=== PATIENT | male | born 1960 | race Caucasian/White ===

== ENCOUNTER 2016-09-06 17:41 | Emergency (ER) | payer OTHER ==
[~2016-09-06] VITALS: Ht 182.9 cm; Wt 127.0 kg
[2016-09-06] MEDS ORDERED: ENALAPRILAT INJ 2.5MG/2ML VIAL As Ordered ONE ×2 (18:49→20:22)
[2016-09-06 18:51] LABS: ANION GAP 9 MEQ/L (8-16); BLOOD UREA NITROGEN 15 MG/DL (7-18); CALCIUM LEVEL 9.7 MG/DL (8.5-10.1); CARBON DIOXIDE LEVEL 28 MEQ/L (21-32); CHLORIDE LEVEL 104 MEQ/L (98-107); CREATININE FOR GFR 1.09 MG/DL (0.70-1.30); GLOMERULAR FILTRATION RATE > 60.0 (>56); GLUCOSE, FASTING 110 MG/DL (70-105); INR 1.07; POTASSIUM SERUM 3.5 MEQ/L (3.5-5.1); SODIUM LEVEL 141 MEQ/L (136-145)
[2016-09-06 18:52] LABS: MEAN CORPUSCULAR HEMOGLOBIN 28.3 pg (27.0-33.0); MEAN CORPUSCULAR HGB CONC 34.2 g/dl (32.0-36.5); MEAN CORPUSCULAR VOLUME 82.8 fl (80.0-96.0); RED CELL DISTRIBUTION WIDTH 13.3 % (11.5-14.5); WHITE BLOOD COUNT 13.1 K/mm3 (4.0-10.0)
[2016-09-06] MEDS ORDERED: ISOVUE-370 76% 100ML VIAL (Q9967) As Ordered ONE (19:05)
--- NOTE | 2016-09-06 19:31 | REP ---
Clinical: Chest pain . Comparison: None . Findings: The mediastinum and cardiac silhouette are stable and within normal limits for portable technique. The lung andre are clear without acute consolidation, effusion, or pneumothorax. Skeletal structures are intact. Impression: Normal portable chest x-ray Signed by Raymond Slaughter MD 09/06/2016 07:23 P
--- NOTE | 2016-09-06 19:41 | REP ---
Clinical: Acute chest pain. Technique: Axial contrast enhanced images from the thoracic inlet to the upper abdomen using 100 ml Isovue 370 intravenous contrast material with coronal and sagittal re-formations. Findings: Satisfactory enhancement of the pulmonary vasculature is achieved and no filling defects are identified to suggest pulmonary embolus. Thoracic aorta is normal caliber without aneurysm or dissection. Heart and pericardium are normal. Bilateral lung andre are well aerated and clear without acute pulmonary parenchymal consolidation or atelectasis. No nodule or mass lesion. No pleural effusion/reaction. No pneumothorax. No adenopathy. Impression: No evidence for pulmonary embolus. No acute pleuroparenchymal or mediastinal process. Signed by Raymond Slaughter MD 09/06/2016 07:33 P
[2016-09-06] MEDS ORDERED: hydrALAZINE INJ 20 MG/ML VIAL As Ordered ONE ×3 (21:49→22:32)
[2016-09-06] MEDS ORDERED: ACETAMINOPHEN 325 MG TAB As Ordered ONE (22:32)
--- NOTE | 2016-09-07 02:24 | EDDOCDS ---
Nurse's Notes [facility] Name: Fercho Prakash Age: 55 yrs Sex: Male : 1960 Arrival Date: 09/06/2016 Time: 17:41 Bed OBSERVATION Private MD: NO PRIMARY PHYSICIAN, . 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 ead also reports onset of headache. states headache and chest pain is relieved when laying down. denies sob/dizziness. reports chest pain worse at 5/10, currently rates at 1/10. Adult Sepsis Screening: The patient does not have new or worsening altered mentation. Patient's respiratory rate is less than 22. Systolic blood pressure is greater than 100. Patient has a qSOFA score of 0- Negative Sepsis Screen. Suicide/Homicide risk assessment- the patient denies having any suicidal and/or homicidal ideations and does not present with any other emotional, behavioral or mental health complaints. 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 Transition of care: patient was not received from another setting of care. 17:47 Acuity: IRA Level 2 ead 17:47 Method Of Arrival: Walkin/Carried/Asstd ead 17:48 Aspirin was taken [employer]. 2 tabs of 325 mg at 1500. ead 17:57 Red Flag criteria, patient assessed and taken directly to a bed. rs3 Triage Assessment: 17:50 General: Appears in no apparent distress, comfortable, Behavior is appropriate for age, ead cooperative. Pain: Location: face and chest Pain currently is 1 out of 10 on a pain scale. At worst was 5 out of 10 on a pain scale. Pain began 4 hours ago. HIV screening NA for this visit Offered previously. Neurological: Level of Consciousness is awake, alert, obeys commands, Oriented to person, place, time, Reports headache. Cardiovascular: Chest pain is described as Pain is 1 out of 10 on a pain scale. radiates Does not radiate. episodes are intermittent began 4 hours prior to arrival. Cardiovascular: Reports "it felt like my heart was up in my throat.". Respiratory: Airway is patent Respiratory effort is even, unlabored, Denies shortness of breath. Derm: Skin is pink, warm & dry. Historical: - Allergies: no known allergies; - Home Meds: 1. none - PMHx: Hypertension; - PSHx: none; - Social history: Smoking status: Patient states was never smoker of tobacco. No barriers to communication noted, The patient speaks fluent Malaysian, Speaks appropriately for age. - Family history: No immediate family members are acutely ill. - : The pt / caregiver states he / she is not on anticoagulants. Home medication list is obtained from the patient. - Exposure Risk Screening:: None identified. Screenin:52 Screening information is obtained from the patient. Fall risk: No risks identified. ead Assistance ADL's: requires no assistance with activities of daily living. Abuse/DV Screen: The patient / caregiver reports he/she is: not in a situation that causes fear, pain or injury. Nutritional screening: No deficits noted. Advance Directives: Currently, there is no health care proxy. There is no active DNR order. There is no living will. There is no Power of Film Writer. home support is adequate. Assessment: 16:35 General: Appears in no apparent distress, Behavior is appropriate for age, cooperative, hs1 pleasant. Pain: Location: headache Pain currently is 2 out of 10 on a pain scale. Neurological: Level of Consciousness is awake, alert, obeys commands. Cardiovascular: Rhythm is sinus rhythm No ectopy. Respiratory: Airway is patent Respiratory effort is even, unlabored, Respiratory pattern is regular, symmetrical. GI: Abdomen is non- distended obese. Derm: Skin is pink, warm & dry. normal. 19:37 General: Appears in no apparent distress, Behavior is appropriate for age, cooperative, nn1 . General: First encounter with this patient. Report taken from Augustin Shaffer RN. Nurse reports having given Enalaprit prior to shift change. Patient taken to CT, no distress noted. Patient has no complaints at this time. . Pain: Denies pain. Neurological: Level of Consciousness is awake, alert. Respiratory: Airway is patent Respiratory effort is even, unlabored, Respiratory pattern is regular, symmetrical. Derm: Skin is pink, warm & dry. 19:54 General: Provider aware of continued elevated blood pressure, new orders given. sls1 22:12 General: Appears in no apparent distress. Pain: Denies pain. Neurological: Level of nn1 Consciousness is awake, alert. Cardiovascular: Rhythm is sinus tachycardia. Respiratory: Airway is patent Respiratory effort is even, unlabored, Respiratory pattern is regular, symmetrical. Derm: Skin is pink, warm & dry. 22:18 General: Patient reports he has a headache, provider notified. Awaiting orders. . nn1 22:36 General: Appears in no apparent distress. Pain: Location: chest and head Pain currently nn1 is 6 out of 10 on a pain scale. Quality of pain is described as tightness in chest. Cardiovascular: Rhythm is atrial fibrillation With PVC's. Respiratory: Airway is patent Respiratory effort is even, unlabored, Respiratory pattern is regular, symmetrical. Derm: Skin is pink, warm & dry. 09/07 00:10 General: Appears in no apparent distress. General: Reports improvement in headache and nn1 chest pressure at this time.. Cardiovascular: Rhythm is atrial fibrillation. Respiratory: Airway is patent Respiratory effort is even, unlabored, Respiratory pattern is regular, symmetrical. Derm: Skin is pink, warm & dry. 00:41 General: Patient reports discomfort in chest that radiates to shoulder blades. Pressure nn1 rated 2/10. reports headache 4/10.. Neurological: Level of Consciousness is awake, alert. Cardiovascular: Rhythm is atrial fibrillation. Cardiovascular: Chest pain is described as vague, quality is pressure, is located in substernal area radiates "between shoulder blades". Derm: Skin is pink, warm & dry. 01:54 Reassessment: Patient appears in no apparent distress at this time. nn1 02:22 General: Appears in no apparent distress, comfortable, Behavior is appropriate for age, nn1 cooperative. Pain: Location: headache Pain currently is 4 out of 10 on a pain scale. Neurological: No deficits noted. Respiratory: No deficits noted. Derm: Skin is pink, warm & dry. Vital Signs: 09/06 17:42 BP 247 / 136; Pulse 127; Resp 18 S; Temp 97.7(O); Pulse Ox 100% on R/A; Weight 127.01 dd6 kg (R); Height 6 ft. 0 in. (182.88 cm) (R); 17:42 Pulse 81 MON; Pulse Ox 100% ; hs1 17:48 BP 228 / 110 LA Supine (man/); ead 17:58 BP 220 / 121 (auto/); hs1 18:00 BP 224 / 113 (auto/); ead 18:02 Pulse 106 MON; Pulse Ox 95% ; ead 18:15 BP 208 / 103 (auto/); hs1 18:15 Pulse 98 MON; Pulse Ox 96% ; hs1 18:27 Pulse 97 MON; Pulse Ox 95% ; hs1 18:30 BP 184 / 96 (auto/); hs1 18:45 BP 247 / 119 (auto/); nn1 18:45 Pulse 114 MON; Pulse Ox 98% ; nn1 18:46 BP 208 / 100 (auto/); hs1 18:46 Pulse 113 MON; Pulse Ox 98% ; hs1 19:00 BP 201 / 84 (auto/); nn1 19:00 Pulse 104 MON; Pulse Ox 97% ; nn1 19:13 Pulse 108 MON; Pulse Ox 97% ; nn1 19:15 BP 215 / 108 (auto/); nn1 19:31 BP 217 / 106 (auto/); nn1 19:31 Pulse 112 MON; Pulse Ox 96% ; nn1 19:45 BP 222 / 88 (auto/); nn1 19:45 Pulse 108 MON; Pulse Ox 96% ; nn1 20:12 Pulse 110 MON; Pulse Ox 95% ; nn1 20:13 BP 196 / 105 (auto/); nn1 20:15 BP 197 / 103 (auto/); nn1 20:15 Pulse 111 MON; Pulse Ox 96% ; nn1 20:26 BP 178 / 103 (auto/); nn1 20:26 Pulse 108 MON; Pulse Ox 96% ; nn1 20:30 BP 196 / 110 (auto/); nn1 20:30 Pulse 108 MON; Pulse Ox 97% ; nn1 20:31 BP 200 / 109 (auto/); nn1 20:31 Pulse 110 MON; Pulse Ox 96% ; nn1 20:32 BP 177 / 99 (auto/); nn1 20:32 Pulse 113 MON; Pulse Ox 97% ; nn1 20:36 BP 158 / 94 (auto/); nn1 20:36 Pulse 114 MON; Pulse Ox 96% ; nn1 20:41 BP 174 / 102 (auto/); nn1 20:41 Pulse 110 MON; Pulse Ox 95% ; nn1 20:46 BP 179 / 103 (auto/); nn1 20:46 Pulse 109 MON; Pulse Ox 97% ; nn1 20:51 BP 155 / 101 (auto/); nn1 20:51 Pulse 107 MON; Pulse Ox 96% ; nn1 20:56 BP 171 / 101 (auto/); nn1 20:56 Pulse 108 MON; Pulse Ox 96% ; nn1 20:57 Resp 20; nn1 21:01 BP 167 / 104 (auto/); nn1 21:01 Pulse 108 MON; Pulse Ox 96% ; nn1 21:06 BP 167 / 108 (auto/); nn1 21:06 Pulse 109 MON; Pulse Ox 96% ; nn1 21:11 BP 198 / 111 (auto/); nn1 21:11 Pulse 110 MON; Pulse Ox 95% ; nn1 21:16 BP 188 / 107 (auto/); nn1 21:16 Pulse 108 MON; Pulse Ox 96% ; nn1 21:21 BP 224 / 159 (auto/); nn1 21:21 Pulse 109 MON; Pulse Ox 96% ; nn1 21:26 BP 159 / 113 (auto/); nn1 21:26 Pulse 113 MON; Pulse Ox 96% ; nn1 21:31 BP 161 / 102 (auto/); nn1 21:31 Pulse 107 MON; Pulse Ox 96% ; nn1 21:36 BP 177 / 97 (auto/); nn1 21:37 Pulse 105 MON; Pulse Ox 95% ; nn1 21:41 BP 192 / 113 (auto/); nn1 21:41 Pulse 103 MON; Pulse Ox 96% ; nn1 21:46 BP 195 / 108 (auto/); nn1 21:46 Pulse 101 MON; Pulse Ox 96% ; nn1 21:51 BP 192 / 105 (auto/); nn1 21:51 Pulse 102 MON; Pulse Ox 96% ; nn1 21:56 BP 191 / 103 (auto/); nn1 21:56 Pulse 106 MON; Pulse Ox 97% ; nn1 22:01 BP 180 / 85 (auto/); nn1 22:01 Pulse 108 MON; Pulse Ox 97% ; nn1 22:06 BP 177 / 88 (auto/); nn1 22:06 Pulse 117 MON; Pulse Ox 97% ; nn1 22:11 BP 173 / 94 (auto/); nn1 22:11 Pulse 121 MON; Pulse Ox 98% ; nn1 22:16 BP 188 / 100 (auto/); nn1 22:16 Pulse 124 MON; Pulse Ox 97% ; nn1 22:21 BP 178 / 99 (auto/); nn1 22:21 Pulse 124 MON; Pulse Ox 97% ; nn1 22:26 BP 184 / 97 (auto/); nn1 22:26 Pulse 121 MON; Pulse Ox 97% ; nn1 22:30 Resp 20; Temp 98.6(O); nn1 22:31 BP 190 / 95 (auto/); nn1 22:31 Pulse 122 MON; Pulse Ox 97% ; nn1 22:36 BP 168 / 84 (auto/); nn1 22:36 Pulse 120 MON; Pulse Ox 97% ; nn1 22:41 BP 162 / 87 (auto/); nn1 22:41 Pulse 121 MON; Pulse Ox 97% ; nn1 22:46 Pulse 123 MON; Pulse Ox 97% ; nn1 22:46 BP 181 / 99 (auto/); nn1 22:51 BP 180 / 82 (auto/); nn1 22:51 Pulse 119 MON; Pulse Ox 98% ; nn1 22:56 BP 144 / 84 (auto/); nn1 22:56 Pulse 120 MON; Pulse Ox 97% ; nn1 23:01 BP 159 / 78 (auto/); nn1 23:01 Pulse 118 MON; Pulse Ox 97% ; nn1 23:06 BP 156 / 83 (auto/); nn1 23:06 Pulse 119 MON; Pulse Ox 97% ; nn1 23:11 BP 169 / 79 (auto/); nn1 23:11 Pulse 121 MON; Pulse Ox 97% ; nn1 23:16 BP 157 / 87 (auto/); nn1 23:16 Pulse 108 MON; Pulse Ox 97% ; nn1 23:21 BP 165 / 77 (auto/); nn1 23:21 Pulse 122 MON; Pulse Ox 97% ; nn1 23:26 BP 149 / 72 (auto/); nn1 23:26 Pulse 122 MON; Pulse Ox 96% ; nn1 23:31 BP 150 / 75 (auto/); nn1 23:31 Pulse 123 MON; Pulse Ox 97% ; nn1 23:36 BP 131 / 77 (auto/); nn1 23:36 Pulse 120 MON; Pulse Ox 96% ; nn1 23:41 BP 144 / 94 (auto/); nn1 23:41 Pulse 119 MON; Pulse Ox 97% ; nn1 23:46 BP 155 / 95 (auto/); nn1 23:46 Pulse 116 MON; Pulse Ox 97% ; nn1 23:51 BP 156 / 88 (auto/); nn1 23:51 Pulse 121 MON; Pulse Ox 97% ; nn1 23:56 Pulse 122 MON; Pulse Ox 97% ; nn1 23:56 BP 157 / 82 (auto/); nn1 09/07 00:01 BP 152 / 80 (auto/); nn1 00:01 Pulse 120 MON; Pulse Ox 97% ; nn1 00:06 BP 153 / 70 (auto/); nn1 00:06 Pulse 120 MON; Pulse Ox 96% ; nn1 00:10 Pulse 101 MON; Pulse Ox 97% ; nn1 00:11 BP 156 / 77 (auto/); nn1 00:11 Pulse 141 MON; Pulse Ox 96% ; nn1 00:16 BP 140 / 74 (auto/); nn1 00:16 Pulse 120 MON; Pulse Ox 96% ; nn1 00:21 BP 152 / 77 (auto/); nn1 00:21 Pulse 118 MON; Pulse Ox 96% ; nn1 00:26 BP 146 / 74 (auto/); nn1 00:26 Pulse 116 MON; Pulse Ox 97% ; nn1 00:31 BP 139 / 76 (auto/); nn1 00:31 Pulse 116 MON; Pulse Ox 96% ; nn1 00:36 BP 152 / 86 (auto/); nn1 00:36 Pulse 114 MON; Pulse Ox 97% ; nn1 00:41 BP 161 / 82 (auto/); nn1 00:41 Pulse 116 MON; Pulse Ox 97% ; nn1 00:46 BP 151 / 89 (auto/); nn1 00:46 Pulse 115 MON; Pulse Ox 98% ; nn1 00:51 BP 147 / 84 (auto/); nn1 00:51 Pulse 113 MON; Pulse Ox 97% ; nn1 00:56 BP 143 / 76 (auto/); nn1 00:56 Pulse 114 MON; Pulse Ox 97% ; nn1 01:01 BP 160 / 73 (auto/); nn1 01:01 Pulse 114 MON; Pulse Ox 96% ; nn1 02:19 BP 119 / 180; Pulse 100; Resp 20; Temp 98.1(O); Pulse Ox 97% on R/A; Pain 12/06; jmv 09/06 17:42 Body Mass Index 37.97 (127.01 kg, 182.88 cm) dd6 Vitals: 09/06 17:42 Log In Time: September 06, 2016 at 17:40. RN notified that patient meets Red Flag dd6 criteria. ED Course: 17:42 Patient visited by Shmuel Jorgensen PCA. dd6 17:42 NO PRIMARY PHYSICIAN, . is Private Physician. dd6 17:42 Patient moved to Waiting dd6 17:46 Patient moved to PD ead 17:46 EKG done. (by ED staff). Reviewed by Paresh Stock MD. ar3 17:48 Triage Initiated ead 17:52 Patient visited by Jailene Herrera PCA. ar3 17:57 Patient moved to 2 ead 18:02 Ron Lockhart DO is Attending Physician. cs11 18:02 Patient visited by Ron Lockhart DO. cs11 18:06 Inserted saline lock: 18 gauge in left antecubital area and blood collected. The ead patient tolerated the procedure well. 18:07 The patient / caregiver is instructed regarding the plan of care and ED course. Cardiac ead monitor on. Pulse ox on. NIBP on. 18:48 Patient visited by Zari Shaffer RN. hs1 19:45 Patient visited by Rudolph Ramos RN. nn1 20:03 Chest, 1 View Returned. EDMS 20:03 CT Chest Angio R/O PE Returned. EDMS 20:41 Patient visited by Rudolph Ramos RN. nn1 21:23 Patient moved to OBSERVATION cs11 21:29 [facility] Payment Agreement was scanned into [employer] and attached to record. zo 22:12 Rudolph Ramos,RN is Primary Nurse. nn1 23:57 Attending Physician role handed off by Ron Lockhart DO mm11 23:57 Juancarlos Oliveros DO is Attending Physician. mm11 09/07 00:13 Patient visited by Monica Buckley. cmb 00:13 Assisted with urinal. cmb 00:41 CARDIAC MARKER PANEL Sent. nn1 00:46 Patient visited by Keshav Horne PCA. jmv 00:46 EKG done. (by ED staff). Reviewed by Juancarlos Oliveros DO. jmv 02:12 Fab Basilio MD is Referral Physician. mm11 02:12 [facility] is Referral Physician. mm11 02:20 Patient visited by Keshav Horne PCA. jmv 02:23 No procedures done that require assistance. nn1 Administered Medications: 09/06 20:32 Drug: Enalaprilat 1.25 mg [enalaprilat 1.25 mg/mL intravenous solution] Route: IV; kas2 Rate: bolus; Site: left antecubital; 20:56 Drug: NS 0.9% 500 ml [sodium chloride 0.9 % intravenous solution] Route: IV; Rate: nn1 bolus; Site: left antecubital; 21:48 Not Given (Other Intervention Used): Enalaprilat 2.5 mg IV at bolus once; Administer nn1 over 5 minutes 22:00 Drug: hydrALAZINE 15 mg [hydralazine 20 mg/mL injection solution] Route: IV; Rate: nn1 bolus; Site: left antecubital; 22:36 Drug: hydrALAZINE 10 mg [hydralazine 20 mg/mL injection solution] Route: IV; Rate: nn1 bolus; Site: left antecubital; 22:36 Drug: Acetaminophen 975 mg [acetaminophen 325 mg tablet (3 tabs)] Route: PO; nn1 Output: 09/07 00:13 Urine: 400.00ml (Voided); Total: 400.00ml. cmb Order Results: Lab Order: CBC; SPEC'M 09/06/16 18:06 Test: WHITE BLOOD COUNT; Value: 13.1; Range: 4.0-10.0; Abnormal: Above high normal; Units: K/mm3; Status: F Test: RED BLOOD COUNT; Value: 5.93; Range: 4.30-6.10; Units: M/mm3; Status: F Test: HEMOGLOBIN; Value: 16.8; Range: 14.0-18.0; Units: g/dl; Status: F Test: HEMATOCRIT; Value: 49.1; Range: 42.0-52.0; Units: %; Status: F Test: MEAN CORPUSCULAR VOLUME; Value: 82.8; Range: 80.0-96.0; Units: fl; Status: F Test: MEAN CORPUSCULAR HEMOGLOBIN; Value: 28.3; Range: 27.0-33.0; Units: pg; Status: F Test: MEAN CORPUSCULAR HGB CONC; Value: 34.2; Range: 32.0-36.5; Units: g/dl; Status: F Test: RED CELL DISTRIBUTION WIDTH; Value: 13.3; Range: 11.5-14.5; Units: %; Status: F Test: PLATELET COUNT, AUTOMATED; Value: 361; Range: 150-450; Units: k/mm3; Status: F Lab Order: MED Profile; SPEC'M 09/06/16 18:06 Test: GLUCOSE, FASTING; Value: 110; Range: 70-105; Abnormal: Above high normal; Units: MG/DL; Status: F Test: BLOOD UREA NITROGEN; Value: 15; Range: 7-18; Units: MG/DL; Status: F Test: CREATININE FOR GFR; Value: 1.09; Range: 0.70-1.30; Units: MG/DL; Status: F Test: GLOMERULAR FILTRATION RATE; Value: > 60.0; Range: >56; Status: F Test: SODIUM LEVEL; Value: 141; Range: 136-145; Units: MEQ/L; Status: F Test: POTASSIUM SERUM; Value: 3.5; Range: 3.5-5.1; Units: MEQ/L; Status: F Test: CHLORIDE LEVEL; Value: 104; Range: 98-107; Units: MEQ/L; Status: F Test: CARBON DIOXIDE LEVEL; Value: 28; Range: 21-32; Units: MEQ/L; Status: F Test: ANION GAP; Value: 9; Range: 8-16; Units: MEQ/L; Status: F Test: CALCIUM LEVEL; Value: 9.7; Range: 8.5-10.1; Units: MG/DL; Status: F Test Note: ; Units are mL/min/1.73 m2 Chronic Kidney Disease Staging per NKF: Stage I & II GFR >=60 Normal to Mildly Decreased Stage III GFR 30-59 Moderately Decreased Stage IV GFR 15-29 Severely Decreased Stage V GFR <15 Very Little GFR Left ESRD GFR <15 on CHILD ATTENDANT Lab Order: Pt & Aptt; SPEC'M 09/06/16 18:06 Test: PROTHROMBIN TIME; Value: 14.0; Range: 12.3-14.5; Units: SECONDS; Status: F Test: INR; Value: 1.07; Status: F Test: PARTIAL THROMBOPLASTIN TIME; Value: 33.7; Range: 26.6-37.1; Units: SECONDS; Status: F Test Note: ; THERAPUTIC HUMAN INR VALUES INDICATIONS NORMAL RANGES PROPHYLAXIS/TREATMENT OF: VENOUS THROMBOSIS 2.0-3.0 PULMONARY EMBOLISM 2.0-3.0 PREVENTION OF SYSTEMIC EMBOLISM FROM: TISSUE HEART VALVES 2.0-3.0 ACUTE MYOCARDIAL INFARCTION 2.0-3.0 VALVULAR HEART DISEASE 2.0-3.0 ATRIAL FIBRILLATION 2.0-3.0 MECHANICAL VALVES(HIGH RISK) 2.5-3.5 RECURRENT MYOCARDIAL INFARCTION 2.5-3.5 Lab Order: Cardiac Marker Panel; SPEC'M 09/06/16 18:06 Test: CPK CREATINE PHOSPHOKINASE; Value: 128; Range: 39-308; Units: U/L; Status: F Test: CK-MB VALUE MASS; Value: 1.7; Range: 0.0-3.6; Units: NG/ML; Status: F Test: MB/CK RELATIVE INDEX; Value: 1.32; Range: < OR =4; Status: F Test: TROPONIN I; Value: < 0.02; Range: < 0.10; Units: NG/ML; Status: F Test Note: ; DIAGNOSIS CRITERIA MMB ng/ml Relative Index (RI) NON-AMI < or = 5 N/A [place] > 5 < or = 4 AMI > 5 > 4 Lab Order: CARDIAC MARKER PANEL; SPEC'M 09/07/16 00:40 Test: CPK CREATINE PHOSPHOKINASE; Value: 96; Range: 39-308; Units: U/L; Status: F Test: CK-MB VALUE MASS; Value: 1.5; Range: 0.0-3.6; Units: NG/ML; Status: F Test: MB/CK RELATIVE INDEX; Value: 1.56; Range: < OR =4; Status: F Test: TROPONIN I; Value: < 0.02; Range: < 0.10; Units: NG/ML; Status: F Test Note: ; DIAGNOSIS CRITERIA MMB ng/ml Relative Index (RI) NON-AMI < or = 5 N/A [place] > 5 < or = 4 AMI > 5 > 4 Radiology Order: Chest, 1 View Test: Chest, 1 View REASON FOR EXAMINATION: Chest Pain; Clinical: Chest pain .; ; Comparison: None .; ; Findings:; The mediastinum and cardiac silhouette are stable and within normal limits for; portable technique. The lung andre are clear without acute consolidation,; effusion, or pneumothorax. Skeletal structures are intact.; ; Impression:; Normal portable chest x-ray; ; ; Signed by; Raymond Slaughter MD 09/06/2016 07:23 P; Radiology Order: CT Chest Angio R/O PE Test: CT Chest Angio R/O PE REASON FOR EXAMINATION: Chest Pain; Clinical: Acute chest pain.; ; Technique: Axial contrast enhanced images from the thoracic inlet to the upper; abdomen using 100 ml Isovue 370 intravenous contrast material with coronal and; sagittal re-formations.; ; Findings: Satisfactory enhancement of the pulmonary vasculature is achieved and; no filling defects are identified to suggest pulmonary embolus. Thoracic aorta; is normal caliber without aneurysm or dissection. Heart and pericardium are; normal. Bilateral lung andre are well aerated and clear without acute pulmonary; parenchymal consolidation or atelectasis. No nodule or mass lesion. No pleural; effusion/reaction. No pneumothorax. No adenopathy.; ; Impression:; No evidence for pulmonary embolus.; No acute pleuroparenchymal or mediastinal process.; ; ; Signed by; Raymond Slaughter MD 09/06/2016 07:33 P; Outcome: 02:13 Discharge ordered by Provider. mm11 02:22 Discharge Assessment: Patient awake, alert and oriented x 3. No cognitive and/or nn1 functional deficits noted. Patient verbalized understanding of disposition instructions. patient administered narcotics - no. The following High Risk Discharge criteria are identified: None. Discharged to home ambulatory. Condition: stable Condition: improved. Instructed on discharge instructions, follow up and referral plans. medication usage, Demonstrated understanding of Pt was receptive of discharge instructions/ teaching. Prescriptions given X 1. CT Study completed. Property :Personal belongings accompany Pt. 02:23 Patient left the ED. nn1 Signatures: Dispatcher [employer] EDMS Ting Grant Matthew, DO DO mm11 Shmuel Jorgensen, CASTING HOUSE WORKER CASTING HOUSE WORKER dd6 Kimi Grimm RN RN rs3 Jailene Herrera, CASTING HOUSE WORKER CASTING HOUSE WORKER ar3 Zari Shaffer RN RN hs1 Rosalee Monroy, RN RN sls1 Monica Buckley cmb Ron Lockhart, DO cs11 Li Ulloa,RN RN ead Rudolph Ramos,RN RN nn1 Regina Medina,RN RN kas2 Keshav Horne, CASTING HOUSE WORKER CASTING HOUSE WORKER jmv Corrections: (The following items were deleted from the chart) 09/06 17:52 17:47 Presenting complaint: Patient states: onset of chest pain after removing snow ead from car. reports onset of headache. states headache and chest pain is relieved when laying down. denies sob/dizziness. reports chest pain worse at 5/10, currently rates at 1/10. ead 20:42 19:37 General: Appears in no apparent distress, Behavior is appropriate for age, nn1 cooperative, nn1 20:42 19:37 General: Report taken from Augustin Shaffer RN. Nurse reports having given Enalaprit nn1 prior to shift change. Patient taken to CT, no distress noted. Patient has no complaints at this time. . nn1 MTDD
--- NOTE | 2016-09-07 02:24 | EDDOCDS ---
Physician Documentation [facility] Name: Fercho Prakash Age: 55 yrs Sex: Male : 1960 Arrival Date: 09/06/2016 Time: 17:41 Bed OBSERVATION Private MD: NO PRIMARY PHYSICIAN, . Disposition: 09/07/16 02:13 Discharged to Home/Self Care. Impression: Chest pain, unspecified, Essential (primary) hypertension. - Condition is Stable. - Discharge Instructions: Nonspecific Chest Pain, Hypertension, Hypertension, [id number]. - Prescriptions for Hydralazine 10 mg Oral Tablet - take 1 tablet by ORAL route 4 times per day with food; 30 tablet. - Medication Reconciliation, Local Pharmacy Hours form. - Follow up: Fab Basilio MD; When: 10 - 14 days; Reason: Continuance of care, To establish care. [facility]; When: Call to arrange an appointment; Reason: To establish care. - Problem is an acute exacerbation. - Symptoms have improved. Historical: - Allergies: no known allergies; - Home Meds: 1. none - PMHx: Hypertension; - PSHx: none; - Social history: Smoking status: Patient states was never smoker of tobacco. No barriers to communication noted, The patient speaks fluent Indonesian, Speaks appropriately for age. - Family history: No immediate family members are acutely ill. - : The pt / caregiver states he / she is not on anticoagulants. Home medication list is obtained from the patient. - Exposure Risk Screening:: None identified. Vital Signs: 09/06 17:42 BP 247 / 136; Pulse 127; Resp 18 S; Temp 97.7(O); Pulse Ox 100% on R/A; Weight 127.01 dd6 kg / 280.01 lbs (R); Height 6 ft. 0 in. (182.88 cm) (R); 17:42 Pulse 81 MON; Pulse Ox 100% ; hs1 17:48 BP 228 / 110 LA Supine (man/); ead 17:58 BP 220 / 121 (auto/); hs1 18:00 BP 224 / 113 (auto/); ead 18:02 Pulse 106 MON; Pulse Ox 95% ; ead 18:15 BP 208 / 103 (auto/); hs1 18:15 Pulse 98 MON; Pulse Ox 96% ; hs1 18:27 Pulse 97 MON; Pulse Ox 95% ; hs1 18:30 BP 184 / 96 (auto/); hs1 18:45 BP 247 / 119 (auto/); nn1 18:45 Pulse 114 MON; Pulse Ox 98% ; nn1 18:46 BP 208 / 100 (auto/); hs1 18:46 Pulse 113 MON; Pulse Ox 98% ; hs1 19:00 BP 201 / 84 (auto/); nn1 19:00 Pulse 104 MON; Pulse Ox 97% ; nn1 19:13 Pulse 108 MON; Pulse Ox 97% ; nn1 19:15 BP 215 / 108 (auto/); nn1 19:31 BP 217 / 106 (auto/); nn1 19:31 Pulse 112 MON; Pulse Ox 96% ; nn1 19:45 BP 222 / 88 (auto/); nn1 19:45 Pulse 108 MON; Pulse Ox 96% ; nn1 20:12 Pulse 110 MON; Pulse Ox 95% ; nn1 20:13 BP 196 / 105 (auto/); nn1 20:15 BP 197 / 103 (auto/); nn1 20:15 Pulse 111 MON; Pulse Ox 96% ; nn1 20:26 BP 178 / 103 (auto/); nn1 20:26 Pulse 108 MON; Pulse Ox 96% ; nn1 20:30 BP 196 / 110 (auto/); nn1 20:30 Pulse 108 MON; Pulse Ox 97% ; nn1 20:31 BP 200 / 109 (auto/); nn1 20:31 Pulse 110 MON; Pulse Ox 96% ; nn1 20:32 BP 177 / 99 (auto/); nn1 20:32 Pulse 113 MON; Pulse Ox 97% ; nn1 20:36 BP 158 / 94 (auto/); nn1 20:36 Pulse 114 MON; Pulse Ox 96% ; nn1 20:41 BP 174 / 102 (auto/); nn1 20:41 Pulse 110 MON; Pulse Ox 95% ; nn1 20:46 BP 179 / 103 (auto/); nn1 20:46 Pulse 109 MON; Pulse Ox 97% ; nn1 20:51 BP 155 / 101 (auto/); nn1 20:51 Pulse 107 MON; Pulse Ox 96% ; nn1 20:56 BP 171 / 101 (auto/); nn1 20:56 Pulse 108 MON; Pulse Ox 96% ; nn1 20:57 Resp 20; nn1 21:01 BP 167 / 104 (auto/); nn1 21:01 Pulse 108 MON; Pulse Ox 96% ; nn1 21:06 BP 167 / 108 (auto/); nn1 21:06 Pulse 109 MON; Pulse Ox 96% ; nn1 21:11 BP 198 / 111 (auto/); nn1 21:11 Pulse 110 MON; Pulse Ox 95% ; nn1 21:16 BP 188 / 107 (auto/); nn1 21:16 Pulse 108 MON; Pulse Ox 96% ; nn1 21:21 BP 224 / 159 (auto/); nn1 21:21 Pulse 109 MON; Pulse Ox 96% ; nn1 21:26 BP 159 / 113 (auto/); nn1 21:26 Pulse 113 MON; Pulse Ox 96% ; nn1 21:31 BP 161 / 102 (auto/); nn1 21:31 Pulse 107 MON; Pulse Ox 96% ; nn1 21:36 BP 177 / 97 (auto/); nn1 21:37 Pulse 105 MON; Pulse Ox 95% ; nn1 21:41 BP 192 / 113 (auto/); nn1 21:41 Pulse 103 MON; Pulse Ox 96% ; nn1 21:46 BP 195 / 108 (auto/); nn1 21:46 Pulse 101 MON; Pulse Ox 96% ; nn1 21:51 BP 192 / 105 (auto/); nn1 21:51 Pulse 102 MON; Pulse Ox 96% ; nn1 21:56 BP 191 / 103 (auto/); nn1 21:56 Pulse 106 MON; Pulse Ox 97% ; nn1 22:01 BP 180 / 85 (auto/); nn1 22:01 Pulse 108 MON; Pulse Ox 97% ; nn1 22:06 BP 177 / 88 (auto/); nn1 22:06 Pulse 117 MON; Pulse Ox 97% ; nn1 22:11 BP 173 / 94 (auto/); nn1 22:11 Pulse 121 MON; Pulse Ox 98% ; nn1 22:16 BP 188 / 100 (auto/); nn1 22:16 Pulse 124 MON; Pulse Ox 97% ; nn1 22:21 BP 178 / 99 (auto/); nn1 22:21 Pulse 124 MON; Pulse Ox 97% ; nn1 22:26 BP 184 / 97 (auto/); nn1 22:26 Pulse 121 MON; Pulse Ox 97% ; nn1 22:30 Resp 20; Temp 98.6(O); nn1 22:31 BP 190 / 95 (auto/); nn1 22:31 Pulse 122 MON; Pulse Ox 97% ; nn1 22:36 BP 168 / 84 (auto/); nn1 22:36 Pulse 120 MON; Pulse Ox 97% ; nn1 22:41 BP 162 / 87 (auto/); nn1 22:41 Pulse 121 MON; Pulse Ox 97% ; nn1 22:46 Pulse 123 MON; Pulse Ox 97% ; nn1 22:46 BP 181 / 99 (auto/); nn1 22:51 BP 180 / 82 (auto/); nn1 22:51 Pulse 119 MON; Pulse Ox 98% ; nn1 22:56 BP 144 / 84 (auto/); nn1 22:56 Pulse 120 MON; Pulse Ox 97% ; nn1 23:01 BP 159 / 78 (auto/); nn1 23:01 Pulse 118 MON; Pulse Ox 97% ; nn1 23:06 BP 156 / 83 (auto/); nn1 23:06 Pulse 119 MON; Pulse Ox 97% ; nn1 23:11 BP 169 / 79 (auto/); nn1 23:11 Pulse 121 MON; Pulse Ox 97% ; nn1 23:16 BP 157 / 87 (auto/); nn1 23:16 Pulse 108 MON; Pulse Ox 97% ; nn1 23:21 BP 165 / 77 (auto/); nn1 23:21 Pulse 122 MON; Pulse Ox 97% ; nn1 23:26 BP 149 / 72 (auto/); nn1 23:26 Pulse 122 MON; Pulse Ox 96% ; nn1 23:31 BP 150 / 75 (auto/); nn1 23:31 Pulse 123 MON; Pulse Ox 97% ; nn1 23:36 BP 131 / 77 (auto/); nn1 23:36 Pulse 120 MON; Pulse Ox 96% ; nn1 23:41 BP 144 / 94 (auto/); nn1 23:41 Pulse 119 MON; Pulse Ox 97% ; nn1 23:46 BP 155 / 95 (auto/); nn1 23:46 Pulse 116 MON; Pulse Ox 97% ; nn1 23:51 BP 156 / 88 (auto/); nn1 23:51 Pulse 121 MON; Pulse Ox 97% ; nn1 23:56 Pulse 122 MON; Pulse Ox 97% ; nn1 23:56 BP 157 / 82 (auto/); nn1 09/07 00:01 BP 152 / 80 (auto/); nn1 00:01 Pulse 120 MON; Pulse Ox 97% ; nn1 00:06 BP 153 / 70 (auto/); nn1 00:06 Pulse 120 MON; Pulse Ox 96% ; nn1 00:10 Pulse 101 MON; Pulse Ox 97% ; nn1 00:11 BP 156 / 77 (auto/); nn1 00:11 Pulse 141 MON; Pulse Ox 96% ; nn1 00:16 BP 140 / 74 (auto/); nn1 00:16 Pulse 120 MON; Pulse Ox 96% ; nn1 00:21 BP 152 / 77 (auto/); nn1 00:21 Pulse 118 MON; Pulse Ox 96% ; nn1 00:26 BP 146 / 74 (auto/); nn1 00:26 Pulse 116 MON; Pulse Ox 97% ; nn1 00:31 BP 139 / 76 (auto/); nn1 00:31 Pulse 116 MON; Pulse Ox 96% ; nn1 00:36 BP 152 / 86 (auto/); nn1 00:36 Pulse 114 MON; Pulse Ox 97% ; nn1 00:41 BP 161 / 82 (auto/); nn1 00:41 Pulse 116 MON; Pulse Ox 97% ; nn1 00:46 BP 151 / 89 (auto/); nn1 00:46 Pulse 115 MON; Pulse Ox 98% ; nn1 00:51 BP 147 / 84 (auto/); nn1 00:51 Pulse 113 MON; Pulse Ox 97% ; nn1 00:56 BP 143 / 76 (auto/); nn1 00:56 Pulse 114 MON; Pulse Ox 97% ; nn1 01:01 BP 160 / 73 (auto/); nn1 01:01 Pulse 114 MON; Pulse Ox 96% ; nn1 02:19 BP 119 / 180; Pulse 100; Resp 20; Temp 98.1(O); Pulse Ox 97% on R/A; Pain 4/10; jmv 09/06 17:42 Body Mass Index 37.97 (127.01 kg, 182.88 cm) dd6 MDM: 09/06 17:43 ECG WITH READING ER PHYS+CARDIAG ordered. EDMS 18:32 IV Saline Lock ordered. cs11 18:32 Enalaprilat 1.25 mg IV at calculated rate once; Administer over 5 minutes ordered. cs11 18:33 CBC Ordered. EDMS 18:33 MED Profile Ordered. EDMS 18:33 Pt & Aptt Ordered. EDMS 18:33 Cardiac Marker Panel Ordered. EDMS 18:34 Chest, 1 View Ordered. EDMS 19:00 CBC Reviewed. cs11 19:00 MED Profile Reviewed. cs11 19:00 Pt & Aptt Reviewed. cs11 19:00 Cardiac Marker Panel Reviewed. cs11 19:00 NS 0.9% 500 ml IV at bolus once ordered. cs11 19:01 CT Chest Angio R/O PE Ordered. EDMS 19:51 Enalaprilat 1.25 mg IV at bolus once; Administer over 5 minutes ordered. cs11 20:49 Financial registration complete. zo 21:24 Enalaprilat 2.5 mg IV at bolus once; Administer over 5 minutes ordered. cs11 21:29 [facility] Payment Agreement was scanned into [employer] and attached to record. zo 21:43 hydrALAZINE 15 mg IV at bolus once ordered. cs11 22:17 hydrALAZINE 10 mg IV at bolus once ordered. cs11 22:17 Acetaminophen Tablet 975 mg PO once ordered. cs11 22:34 [facility] [employer] Deputy Sheriff Order ordered. cs11 22:40 [facility] [employer] Deputy Sheriff Order complete. tmm1 22:41 ECG WITH READING ER PHYS ordered. EDMS 22:42 CARDIAC MARKER PANEL Ordered. EDMS 22:49 Chest, 1 View Reviewed. cs11 22:49 CT Chest Angio R/O PE Reviewed. cs11 09/07 02:04 CARDIAC MARKER PANEL Reviewed. mm11 Administered Medications: 09/06 20:32 Drug: Enalaprilat 1.25 mg [enalaprilat 1.25 mg/mL intravenous solution] Route: IV; kas2 Rate: bolus; Site: left antecubital; 20:56 Drug: NS 0.9% 500 ml [sodium chloride 0.9 % intravenous solution] Route: IV; Rate: nn1 bolus; Site: left antecubital; 21:48 Not Given (Other Intervention Used): Enalaprilat 2.5 mg IV at bolus once; Administer nn1 over 5 minutes 22:00 Drug: hydrALAZINE 15 mg [hydralazine 20 mg/mL injection solution] Route: IV; Rate: nn1 bolus; Site: left antecubital; 22:36 Drug: hydrALAZINE 10 mg [hydralazine 20 mg/mL injection solution] Route: IV; Rate: nn1 bolus; Site: left antecubital; 22:36 Drug: Acetaminophen 975 mg [acetaminophen 325 mg tablet (3 tabs)] Route: PO; nn1 Signatures: Dispatcher [employer] Ting Gupta Matthew, DO DO mm11 Ron Lockhart, DO cs11 McLear, Josefina, JANITORIAL CLEANER JANITORIAL CLEANER tmm1 Li Ulloa RN RN Rudolph Mejía RN RN nn1 Regina Medina RN kas2 The chart was reviewed and I authenticate all verbal orders and agree with the evaluation and treatment provided.Attachments: 21:29 [facility] Payment Agreement zo MTDD
--- NOTE | 2016-09-07 19:52 | ECGEPIP ---
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
--- NOTE | 2016-09-07 19:53 | ECGEPIP ---
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
--- NOTE | 2016-09-09 03:24 | EDDOCDS ---
Nurse's Notes [facility] Name: Fercho Matson Age: 55 yrs Sex: Male : 1960 Arrival Date: 09/06/2016 Time: 17:41 Bed OBSERVATION Private MD: NO PRIMARY PHYSICIAN, . Diagnosis: Chest pain, unspecified;Essential (primary) hypertension Presentation: 09/06 17:47 Presenting complaint: Patient states: onset of chest pain after running a carrier blower. ead also reports onset of headache. states headache and chest pain is relieved when laying down. denies sob/dizziness. reports chest pain worse at 5/10, currently rates at 1/10. Adult Sepsis Screening: The patient does not have new or worsening altered mentation. Patient's respiratory rate is less than 22. Systolic blood pressure is greater than 100. Patient has a qSOFA score of 0- Negative Sepsis Screen. Suicide/Homicide risk assessment- the patient denies having any suicidal and/or homicidal ideations and does not present with any other emotional, behavioral or mental health complaints. Status: Patient is not a installation service representative or dependent. Transition of care: patient was not received from another setting of care. 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 2 tabs of 325 mg at 1500. ead 17:57 Red Flag criteria, patient assessed and taken directly to a bed. rs3 Triage Assessment: 17:50 General: Appears in no apparent distress, comfortable, Behavior is appropriate for age, ead cooperative. Pain: Location: face and chest Pain currently is 1 out of 10 on a pain scale. At worst was 5 out of 10 on a pain scale. Pain began 4 hours ago. HIV screening NA for this visit Offered previously. Neurological: Level of Consciousness is awake, alert, obeys commands, Oriented to person, place, time, Reports headache. Cardiovascular: Chest pain is described as Pain is 1 out of 10 on a pain scale. radiates Does not radiate. episodes are intermittent began 4 hours prior to arrival. Cardiovascular: Reports "it felt like my heart was up in my throat.". Respiratory: Airway is patent Respiratory effort is even, unlabored, Denies shortness of breath. Derm: Skin is pink, warm & dry. Historical: - Allergies: no known allergies; - Home Meds: 1. none - PMHx: Hypertension; - PSHx: none; - Social history: Smoking status: Patient states was never smoker of tobacco. No barriers to communication noted, The patient speaks fluent Pakistani, Speaks appropriately for age. - Family history: No immediate family members are acutely ill. - : The pt / caregiver states he / she is not on anticoagulants. Home medication list is obtained from the patient. - Exposure Risk Screening:: None identified. Screenin:52 Screening information is obtained from the patient. Fall risk: No risks identified. ead Assistance ADL's: requires no assistance with activities of daily living. Abuse/DV Screen: The patient / caregiver reports he/she is: not in a situation that causes fear, pain or injury. Nutritional screening: No deficits noted. Advance Directives: Currently, there is no health care proxy. There is no active DNR order. There is no living will. There is no Power of Vacuum Metalizing Supervisor. home support is adequate. Assessment: 16:35 General: Appears in no apparent distress, Behavior is appropriate for age, cooperative, hs1 pleasant. Pain: Location: headache Pain currently is 2 out of 10 on a pain scale. Neurological: Level of Consciousness is awake, alert, obeys commands. Cardiovascular: Rhythm is sinus rhythm No ectopy. Respiratory: Airway is patent Respiratory effort is even, unlabored, Respiratory pattern is regular, symmetrical. GI: Abdomen is non- distended obese. Derm: Skin is pink, warm & dry. normal. 19:37 General: Appears in no apparent distress, Behavior is appropriate for age, cooperative, nn1 . General: First encounter with this patient. Report taken from Augustin Shaffer RN. Nurse reports having given Enalaprit prior to shift change. Patient taken to CT, no distress noted. Patient has no complaints at this time. . Pain: Denies pain. Neurological: Level of Consciousness is awake, alert. Respiratory: Airway is patent Respiratory effort is even, unlabored, Respiratory pattern is regular, symmetrical. Derm: Skin is pink, warm & dry. 19:54 General: Provider aware of continued elevated blood pressure, new orders given. sls1 22:12 General: Appears in no apparent distress. Pain: Denies pain. Neurological: Level of nn1 Consciousness is awake, alert. Cardiovascular: Rhythm is sinus tachycardia. Respiratory: Airway is patent Respiratory effort is even, unlabored, Respiratory pattern is regular, symmetrical. Derm: Skin is pink, warm & dry. 22:18 General: Patient reports he has a headache, provider notified. Awaiting orders. . nn1 22:36 General: Appears in no apparent distress. Pain: Location: chest and head Pain currently nn1 is 6 out of 10 on a pain scale. Quality of pain is described as tightness in chest. Cardiovascular: Rhythm is atrial fibrillation With PVC's. Respiratory: Airway is patent Respiratory effort is even, unlabored, Respiratory pattern is regular, symmetrical. Derm: Skin is pink, warm & dry. 09/07 00:10 General: Appears in no apparent distress. General: Reports improvement in headache and nn1 chest pressure at this time.. Cardiovascular: Rhythm is atrial fibrillation. Respiratory: Airway is patent Respiratory effort is even, unlabored, Respiratory pattern is regular, symmetrical. Derm: Skin is pink, warm & dry. 00:41 General: Patient reports discomfort in chest that radiates to shoulder blades. Pressure nn1 rated 2/10. reports headache 4/10.. Neurological: Level of Consciousness is awake, alert. Cardiovascular: Rhythm is atrial fibrillation. Cardiovascular: Chest pain is described as vague, quality is pressure, is located in substernal area radiates "between shoulder blades". Derm: Skin is pink, warm & dry. 01:54 Reassessment: Patient appears in no apparent distress at this time. nn1 02:22 General: Appears in no apparent distress, comfortable, Behavior is appropriate for age, nn1 cooperative. Pain: Location: headache Pain currently is 4 out of 10 on a pain scale. Neurological: No deficits noted. Respiratory: No deficits noted. Derm: Skin is pink, warm & dry. Vital Signs: 09/06 17:42 BP 247 / 136; Pulse 127; Resp 18 S; Temp 97.7(O); Pulse Ox 100% on R/A; Weight 127.01 dd6 kg (R); Height 6 ft. 0 in. (182.88 cm) (R); 17:42 Pulse 81 MON; Pulse Ox 100% ; hs1 17:48 BP 228 / 110 LA Supine (man/); ead 17:58 BP 220 / 121 (auto/); hs1 18:00 BP 224 / 113 (auto/); ead 18:02 Pulse 106 MON; Pulse Ox 95% ; ead 18:15 BP 208 / 103 (auto/); hs1 18:15 Pulse 98 MON; Pulse Ox 96% ; hs1 18:27 Pulse 97 MON; Pulse Ox 95% ; hs1 18:30 BP 184 / 96 (auto/); hs1 18:45 BP 247 / 119 (auto/); nn1 18:45 Pulse 114 MON; Pulse Ox 98% ; nn1 18:46 BP 208 / 100 (auto/); hs1 18:46 Pulse 113 MON; Pulse Ox 98% ; hs1 19:00 BP 201 / 84 (auto/); nn1 19:00 Pulse 104 MON; Pulse Ox 97% ; nn1 19:13 Pulse 108 MON; Pulse Ox 97% ; nn1 19:15 BP 215 / 108 (auto/); nn1 19:31 BP 217 / 106 (auto/); nn1 19:31 Pulse 112 MON; Pulse Ox 96% ; nn1 19:45 BP 222 / 88 (auto/); nn1 19:45 Pulse 108 MON; Pulse Ox 96% ; nn1 20:12 Pulse 110 MON; Pulse Ox 95% ; nn1 20:13 BP 196 / 105 (auto/); nn1 20:15 BP 197 / 103 (auto/); nn1 20:15 Pulse 111 MON; Pulse Ox 96% ; nn1 20:26 BP 178 / 103 (auto/); nn1 20:26 Pulse 108 MON; Pulse Ox 96% ; nn1 20:30 BP 196 / 110 (auto/); nn1 20:30 Pulse 108 MON; Pulse Ox 97% ; nn1 20:31 BP 200 / 109 (auto/); nn1 20:31 Pulse 110 MON; Pulse Ox 96% ; nn1 20:32 BP 177 / 99 (auto/); nn1 20:32 Pulse 113 MON; Pulse Ox 97% ; nn1 20:36 BP 158 / 94 (auto/); nn1 20:36 Pulse 114 MON; Pulse Ox 96% ; nn1 20:41 BP 174 / 102 (auto/); nn1 20:41 Pulse 110 MON; Pulse Ox 95% ; nn1 20:46 BP 179 / 103 (auto/); nn1 20:46 Pulse 109 MON; Pulse Ox 97% ; nn1 20:51 BP 155 / 101 (auto/); nn1 20:51 Pulse 107 MON; Pulse Ox 96% ; nn1 20:56 BP 171 / 101 (auto/); nn1 20:56 Pulse 108 MON; Pulse Ox 96% ; nn1 20:57 Resp 20; nn1 21:01 BP 167 / 104 (auto/); nn1 21:01 Pulse 108 MON; Pulse Ox 96% ; nn1 21:06 BP 167 / 108 (auto/); nn1 21:06 Pulse 109 MON; Pulse Ox 96% ; nn1 21:11 BP 198 / 111 (auto/); nn1 21:11 Pulse 110 MON; Pulse Ox 95% ; nn1 21:16 BP 188 / 107 (auto/); nn1 21:16 Pulse 108 MON; Pulse Ox 96% ; nn1 21:21 BP 224 / 159 (auto/); nn1 21:21 Pulse 109 MON; Pulse Ox 96% ; nn1 21:26 BP 159 / 113 (auto/); nn1 21:26 Pulse 113 MON; Pulse Ox 96% ; nn1 21:31 BP 161 / 102 (auto/); nn1 21:31 Pulse 107 MON; Pulse Ox 96% ; nn1 21:36 BP 177 / 97 (auto/); nn1 21:37 Pulse 105 MON; Pulse Ox 95% ; nn1 21:41 BP 192 / 113 (auto/); nn1 21:41 Pulse 103 MON; Pulse Ox 96% ; nn1 21:46 BP 195 / 108 (auto/); nn1 21:46 Pulse 101 MON; Pulse Ox 96% ; nn1 21:51 BP 192 / 105 (auto/); nn1 21:51 Pulse 102 MON; Pulse Ox 96% ; nn1 21:56 BP 191 / 103 (auto/); nn1 21:56 Pulse 106 MON; Pulse Ox 97% ; nn1 22:01 BP 180 / 85 (auto/); nn1 22:01 Pulse 108 MON; Pulse Ox 97% ; nn1 22:06 BP 177 / 88 (auto/); nn1 22:06 Pulse 117 MON; Pulse Ox 97% ; nn1 22:11 BP 173 / 94 (auto/); nn1 22:11 Pulse 121 MON; Pulse Ox 98% ; nn1 22:16 BP 188 / 100 (auto/); nn1 22:16 Pulse 124 MON; Pulse Ox 97% ; nn1 22:21 BP 178 / 99 (auto/); nn1 22:21 Pulse 124 MON; Pulse Ox 97% ; nn1 22:26 BP 184 / 97 (auto/); nn1 22:26 Pulse 121 MON; Pulse Ox 97% ; nn1 22:30 Resp 20; Temp 98.6(O); nn1 22:31 BP 190 / 95 (auto/); nn1 22:31 Pulse 122 MON; Pulse Ox 97% ; nn1 22:36 BP 168 / 84 (auto/); nn1 22:36 Pulse 120 MON; Pulse Ox 97% ; nn1 22:41 BP 162 / 87 (auto/); nn1 22:41 Pulse 121 MON; Pulse Ox 97% ; nn1 22:46 Pulse 123 MON; Pulse Ox 97% ; nn1 22:46 BP 181 / 99 (auto/); nn1 22:51 BP 180 / 82 (auto/); nn1 22:51 Pulse 119 MON; Pulse Ox 98% ; nn1 22:56 BP 144 / 84 (auto/); nn1 22:56 Pulse 120 MON; Pulse Ox 97% ; nn1 23:01 BP 159 / 78 (auto/); nn1 23:01 Pulse 118 MON; Pulse Ox 97% ; nn1 23:06 BP 156 / 83 (auto/); nn1 23:06 Pulse 119 MON; Pulse Ox 97% ; nn1 23:11 BP 169 / 79 (auto/); nn1 23:11 Pulse 121 MON; Pulse Ox 97% ; nn1 23:16 BP 157 / 87 (auto/); nn1 23:16 Pulse 108 MON; Pulse Ox 97% ; nn1 23:21 BP 165 / 77 (auto/); nn1 23:21 Pulse 122 MON; Pulse Ox 97% ; nn1 23:26 BP 149 / 72 (auto/); nn1 23:26 Pulse 122 MON; Pulse Ox 96% ; nn1 23:31 BP 150 / 75 (auto/); nn1 23:31 Pulse 123 MON; Pulse Ox 97% ; nn1 23:36 BP 131 / 77 (auto/); nn1 23:36 Pulse 120 MON; Pulse Ox 96% ; nn1 23:41 BP 144 / 94 (auto/); nn1 23:41 Pulse 119 MON; Pulse Ox 97% ; nn1 23:46 BP 155 / 95 (auto/); nn1 23:46 Pulse 116 MON; Pulse Ox 97% ; nn1 23:51 BP 156 / 88 (auto/); nn1 23:51 Pulse 121 MON; Pulse Ox 97% ; nn1 23:56 Pulse 122 MON; Pulse Ox 97% ; nn1 23:56 BP 157 / 82 (auto/); nn1 09/07 00:01 BP 152 / 80 (auto/); nn1 00:01 Pulse 120 MON; Pulse Ox 97% ; nn1 00:06 BP 153 / 70 (auto/); nn1 00:06 Pulse 120 MON; Pulse Ox 96% ; nn1 00:10 Pulse 101 MON; Pulse Ox 97% ; nn1 00:11 BP 156 / 77 (auto/); nn1 00:11 Pulse 141 MON; Pulse Ox 96% ; nn1 00:16 BP 140 / 74 (auto/); nn1 00:16 Pulse 120 MON; Pulse Ox 96% ; nn1 00:21 BP 152 / 77 (auto/); nn1 00:21 Pulse 118 MON; Pulse Ox 96% ; nn1 00:26 BP 146 / 74 (auto/); nn1 00:26 Pulse 116 MON; Pulse Ox 97% ; nn1 00:31 BP 139 / 76 (auto/); nn1 00:31 Pulse 116 MON; Pulse Ox 96% ; nn1 00:36 BP 152 / 86 (auto/); nn1 00:36 Pulse 114 MON; Pulse Ox 97% ; nn1 00:41 BP 161 / 82 (auto/); nn1 00:41 Pulse 116 MON; Pulse Ox 97% ; nn1 00:46 BP 151 / 89 (auto/); nn1 00:46 Pulse 115 MON; Pulse Ox 98% ; nn1 00:51 BP 147 / 84 (auto/); nn1 00:51 Pulse 113 MON; Pulse Ox 97% ; nn1 00:56 BP 143 / 76 (auto/); nn1 00:56 Pulse 114 MON; Pulse Ox 97% ; nn1 01:01 BP 160 / 73 (auto/); nn1 01:01 Pulse 114 MON; Pulse Ox 96% ; nn1 02:19 BP 119 / 180; Pulse 100; Resp 20; Temp 98.1(O); Pulse Ox 97% on R/A; Pain 12/06; jmv 09/06 17:42 Body Mass Index 37.97 (127.01 kg, 182.88 cm) dd6 Vitals: 09/06 17:42 Log In Time: September 06, 2016 at 17:40. RN notified that patient meets Red Flag dd6 criteria. ED Course: 17:42 Patient visited by Shmuel Jorgensen PCA. dd6 17:42 NO PRIMARY PHYSICIAN, . is Private Physician. dd6 17:42 Patient moved to Waiting dd6 17:46 Patient moved to PD ead 17:46 EKG done. (by ED staff). Reviewed by Hamida Stock MD. ar3 17:48 Triage Initiated ead 17:52 Patient visited by Jailene Herrera PCA. ar3 17:57 Patient moved to 2 ead 18:02 Selina Luna DO is Attending Physician. cs11 18:02 Patient visited by Selina Luna DO. cs11 18:06 Inserted saline lock: 18 gauge in left antecubital area and blood collected. The ead patient tolerated the procedure well. 18:07 The patient / caregiver is instructed regarding the plan of care and ED course. Cardiac ead monitor on. Pulse ox on. NIBP on. 18:48 Patient visited by Zari Shaffer RN. hs1 19:45 Patient visited by Rudolph Ramos RN. nn1 20:03 Chest, 1 View Returned. EDMS 20:03 CT Chest Angio R/O PE Returned. EDMS 20:41 Patient visited by Rudolph Ramos RN. nn1 21:23 Patient moved to OBSERVATION cs11 21:29 [facility] Payment Agreement was scanned into [employer] and attached to record. zo 22:12 Rudolph Ramos,RN is Primary Nurse. nn1 23:57 Attending Physician role handed off by Selina Luna DO mm11 23:57 Juancarlos Oliveros DO is Attending Physician. mm11 09/07 00:13 Patient visited by Monica Buckley. cmb 00:13 Assisted with urinal. cmb 00:41 CARDIAC MARKER PANEL Sent. nn1 00:46 Patient visited by Keshav Horne PCA. jmv 00:46 EKG done. (by ED staff). Reviewed by Juancarlos Oliveros DO. jmv 02:12 Fab Basilio MD is Referral Physician. mm11 02:12 [facility] is Referral Physician. mm11 02:20 Patient visited by Keshav Horne PCA. jmv 02:23 No procedures done that require assistance. nn1 03:07 T-Sheet-- Draft Copy was scanned into [employer] and attached to record. hs2 12:28 ECG/EKG was scanned into [employer] and attached to record. gb 20:25 EKG-ADULT Returned. EDMS 20:25 ECG WITH READING ER PHYS Returned. EDMS Administered Medications: 09/06 20:32 Drug: Enalaprilat 1.25 mg [enalaprilat 1.25 mg/mL intravenous solution] Route: IV; kas2 Rate: bolus; Site: left antecubital; 20:56 Drug: NS 0.9% 500 ml [sodium chloride 0.9 % intravenous solution] Route: IV; Rate: nn1 bolus; Site: left antecubital; 21:48 Not Given (Other Intervention Used): Enalaprilat 2.5 mg IV at bolus once; Administer nn1 over 5 minutes 22:00 Drug: hydrALAZINE 15 mg [hydralazine 20 mg/mL injection solution] Route: IV; Rate: nn1 bolus; Site: left antecubital; 22:36 Drug: hydrALAZINE 10 mg [hydralazine 20 mg/mL injection solution] Route: IV; Rate: nn1 bolus; Site: left antecubital; 22:36 Drug: Acetaminophen 975 mg [acetaminophen 325 mg tablet (3 tabs)] Route: PO; nn1 Output: 09/07 00:13 Urine: 400.00ml (Voided); Total: 400.00ml. cmb Order Results: Lab Order: CBC; SPEC'M 09/06/16 18:06 Test: WHITE BLOOD COUNT; Value: 13.1; Range: 4.0-10.0; Abnormal: Above high normal; Units: K/mm3; Status: F Test: RED BLOOD COUNT; Value: 5.93; Range: 4.30-6.10; Units: M/mm3; Status: F Test: HEMOGLOBIN; Value: 16.8; Range: 14.0-18.0; Units: g/dl; Status: F Test: HEMATOCRIT; Value: 49.1; Range: 42.0-52.0; Units: %; Status: F Test: MEAN CORPUSCULAR VOLUME; Value: 82.8; Range: 80.0-96.0; Units: fl; Status: F Test: MEAN CORPUSCULAR HEMOGLOBIN; Value: 28.3; Range: 27.0-33.0; Units: pg; Status: F Test: MEAN CORPUSCULAR HGB CONC; Value: 34.2; Range: 32.0-36.5; Units: g/dl; Status: F Test: RED CELL DISTRIBUTION WIDTH; Value: 13.3; Range: 11.5-14.5; Units: %; Status: F Test: PLATELET COUNT, AUTOMATED; Value: 361; Range: 150-450; Units: k/mm3; Status: F Lab Order: MED Profile; [facility] 09/06/16 18:06 Test: GLUCOSE, FASTING; Value: 110; Range: 70-105; Abnormal: Above high normal; Units: MG/DL; Status: F Test: BLOOD UREA NITROGEN; Value: 15; Range: 7-18; Units: MG/DL; Status: F Test: CREATININE FOR GFR; Value: 1.09; Range: 0.70-1.30; Units: MG/DL; Status: F Test: GLOMERULAR FILTRATION RATE; Value: > 60.0; Range: >56; Status: F Test: SODIUM LEVEL; Value: 141; Range: 136-145; Units: MEQ/L; Status: F Test: POTASSIUM SERUM; Value: 3.5; Range: 3.5-5.1; Units: MEQ/L; Status: F Test: CHLORIDE LEVEL; Value: 104; Range: 98-107; Units: MEQ/L; Status: F Test: CARBON DIOXIDE LEVEL; Value: 28; Range: 21-32; Units: MEQ/L; Status: F Test: ANION GAP; Value: 9; Range: 8-16; Units: MEQ/L; Status: F Test: CALCIUM LEVEL; Value: 9.7; Range: 8.5-10.1; Units: MG/DL; Status: F Test Note: ; Units are mL/min/1.73 m2 Chronic Kidney Disease Staging per NKF: Stage I & II GFR >=60 Normal to Mildly Decreased Stage III GFR 30-59 Moderately Decreased Stage IV GFR 15-29 Severely Decreased Stage V GFR <15 Very Little GFR Left ESRD GFR <15 on [employer] Lab Order: Pt & Aptt; [facility] 09/06/16 18:06 Test: PROTHROMBIN TIME; Value: 14.0; Range: 12.3-14.5; Units: SECONDS; Status: F Test: INR; Value: 1.07; Status: F Test: PARTIAL THROMBOPLASTIN TIME; Value: 33.7; Range: 26.6-37.1; Units: SECONDS; Status: F Test Note: ; THERAPUTIC HUMAN INR VALUES INDICATIONS NORMAL RANGES PROPHYLAXIS/TREATMENT OF: VENOUS THROMBOSIS 2.0-3.0 PULMONARY EMBOLISM 2.0-3.0 PREVENTION OF SYSTEMIC EMBOLISM FROM: TISSUE HEART VALVES 2.0-3.0 ACUTE MYOCARDIAL INFARCTION 2.0-3.0 VALVULAR HEART DISEASE 2.0-3.0 ATRIAL FIBRILLATION 2.0-3.0 MECHANICAL VALVES(HIGH RISK) 2.5-3.5 RECURRENT MYOCARDIAL INFARCTION 2.5-3.5 Lab Order: Cardiac Marker Panel; [facility] 09/06/16 18:06 Test: CPK CREATINE PHOSPHOKINASE; Value: 128; Range: 39-308; Units: U/L; Status: F Test: CK-MB VALUE MASS; Value: 1.7; Range: 0.0-3.6; Units: NG/ML; Status: F Test: MB/CK RELATIVE INDEX; Value: 1.32; Range: < OR =4; Status: F Test: TROPONIN I; Value: < 0.02; Range: < 0.10; Units: NG/ML; Status: F Test Note: ; DIAGNOSIS CRITERIA MMB ng/ml Relative Index (RI) NON-AMI < or = 5 N/A [place]ONE > 5 < or = 4 AMI > 5 > 4 Lab Order: CARDIAC MARKER PANEL; [facility] 09/07/16 00:40 Test: CPK CREATINE PHOSPHOKINASE; Value: 96; Range: 39-308; Units: U/L; Status: F Test: CK-MB VALUE MASS; Value: 1.5; Range: 0.0-3.6; Units: NG/ML; Status: F Test: MB/CK RELATIVE INDEX; Value: 1.56; Range: < OR =4; Status: F Test: TROPONIN I; Value: < 0.02; Range: < 0.10; Units: NG/ML; Status: F Test Note: ; DIAGNOSIS CRITERIA MMB ng/ml Relative Index (RI) NON-AMI < or = 5 N/A KWOK ZONE > 5 < or = 4 AMI > 5 > 4 Radiology Order: EKG-ADULT Test: EKG-ADULT REASON FOR EXAMINATION: Chest Pain; Stationary ECG Study; [facility] - ED; ; Test Date: 2016-09-06; Pat Name: FERCHO MATSON Department:; Room: -; Gender: M 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; : 1960 Requested By: HAMIDA Botello; Order Number: [id number] Reading MD: Gina Riddle; Measurements; Intervals [place]; Rate: 107 P: 69; OR: 185 QRS: -21; QRSD: 102 T: 24; QT: 323; QTc: 432; Interpretive Statements; SINUS TACHYCARDIA WITH FREQUENT VENTRICULAR PREMATURE COMPLEXES WITH; OCCASIONAL; SUPRAVENTRICULAR PREMATURE COMPLEXES; BORDERLINE LEFT AXIS DEVIATION; ABNORMAL RHYTHM ECG; ENZO; ?PRIOR INFERIOR IA; NO PRIOR FOR COMPARISON; Electronically Signed On 09-07-2016 19:51:53 EST by Gina Riddle; Radiology Order: Chest, 1 View Test: Chest, 1 View REASON FOR EXAMINATION: Chest Pain; Clinical: Chest pain .; ; Comparison: None .; ; Findings:; The mediastinum and cardiac silhouette are stable and within normal limits for; portable technique. The lung andre are clear without acute consolidation,; effusion, or pneumothorax. Skeletal structures are intact.; ; Impression:; Normal portable chest x-ray; ; ; Signed by; Raymond Slaughter MD 09/06/2016 07:23 P; Radiology Order: CT Chest Angio R/O PE Test: CT Chest Angio R/O PE REASON FOR EXAMINATION: Chest Pain; Clinical: Acute chest pain.; ; Technique: Axial contrast enhanced images from the thoracic inlet to the upper; abdomen using 100 ml Isovue 370 intravenous contrast material with coronal and; sagittal re-formations.; ; Findings: Satisfactory enhancement of the pulmonary vasculature is achieved and; no filling defects are identified to suggest pulmonary embolus. Thoracic aorta; is normal caliber without aneurysm or dissection. Heart and pericardium are; normal. Bilateral lung andre are well aerated and clear without acute pulmonary; parenchymal consolidation or atelectasis. No nodule or mass lesion. No pleural; effusion/reaction. No pneumothorax. 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 mm11 02:22 Discharge Assessment: Patient awake, alert and oriented x 3. No cognitive and/or nn1 functional deficits noted. Patient verbalized understanding of disposition instructions. patient administered narcotics - no. The following High Risk Discharge criteria are identified: None. Discharged to home ambulatory. Condition: stable Condition: improved. Instructed on discharge instructions, follow up and referral plans. medication usage, Demonstrated understanding of Pt was receptive of discharge instructions/ teaching. Prescriptions given X 1. CT Study completed. Property :Personal belongings accompany Pt. 02:23 Patient left the ED. nn1 Signatures: Dispatcher [employer] EDMS Ivy Arrington, Sai Reg Ting Hester Matthew, DO DO mm11 Shmuel Jorgensen, FIELD KILN BURNER FIELD KILN BURNER dd6 Kimi Grimm RN RN rs3 Jailene Herrera, FIELD KILN BURNER FIELD KILN BURNER ar3 Zari Shaffer RN RN hs1 Rosalee Monroy, RN RN sls1 Monica Buckley cmb Selina Luna, DO cs11 Li Ulloa,RN DIANNE ead Rudolph Ramos,RN RN nn1 Camilla Pillai, Reg Reg hs2 Regina Medina,RN RN kas2 Keshav Horne, FIELD KILN BURNER FIELD KILN BURNER jmv Corrections: (The following items were deleted from the chart) 09/06 17:52 17:47 Presenting complaint: Patient states: onset of chest pain after removing snow ead from car. reports onset of headache. states headache and chest pain is relieved when laying down. denies sob/dizziness. reports chest pain worse at 5/10, currently rates at 1/10. ead 20:42 19:37 General: Appears in no apparent distress, Behavior is appropriate for age, nn1 cooperative, nn1 20:42 19:37 General: Report taken from Augustin Shaffer RN. Nurse reports having given Enalaprit nn1 prior to shift change. Patient taken to CT, no distress noted. Patient has no complaints at this time. . nn1 Chart Complete MTDD
--- NOTE | 2016-09-09 03:25 | EDDOCDS ---
Physician Documentation [facility] Name: Fercho Prakash Age: 55 yrs Sex: Male : 1960 Arrival Date: 09/06/2016 Time: 17:41 Bed OBSERVATION Private MD: NO PRIMARY PHYSICIAN, . Disposition: 09/07/16 02:13 Discharged to Home/Self Care. Impression: Chest pain, unspecified, Essential (primary) hypertension. - Condition is Stable. - Discharge Instructions: Nonspecific Chest Pain, Hypertension, Hypertension, Jaux-bo-Cowm. - Prescriptions for Hydralazine 10 mg Oral Tablet - take 1 tablet by ORAL route 4 times per day with food; 30 tablet. - Medication Reconciliation, Local Pharmacy Hours form. - Follow up: Fab Basilio MD; When: 10 - 14 days; Reason: Continuance of care, To establish care. [facility]; When: Call to arrange an appointment; Reason: To establish care. - Problem is an acute exacerbation. - Symptoms have improved. Historical: - Allergies: no known allergies; - Home Meds: 1. none - PMHx: Hypertension; - PSHx: none; - Social history: Smoking status: Patient states was never smoker of tobacco. No barriers to communication noted, The patient speaks fluent [place], Speaks appropriately for age. - Family history: No immediate family members are acutely ill. - : The pt / caregiver states he / she is not on anticoagulants. Home medication list is obtained from the patient. - Exposure Risk Screening:: None identified. Vital Signs: 09/06 17:42 BP 247 / 136; Pulse 127; Resp 18 S; Temp 97.7(O); Pulse Ox 100% on R/A; Weight 127.01 dd6 kg / 280.01 lbs (R); Height 6 ft. 0 in. (182.88 cm) (R); 17:42 Pulse 81 MON; Pulse Ox 100% ; hs1 17:48 BP 228 / 110 LA Supine (man/); ead 17:58 BP 220 / 121 (auto/); hs1 18:00 BP 224 / 113 (auto/); ead 18:02 Pulse 106 MON; Pulse Ox 95% ; ead 18:15 BP 208 / 103 (auto/); hs1 18:15 Pulse 98 MON; Pulse Ox 96% ; hs1 18:27 Pulse 97 MON; Pulse Ox 95% ; hs1 18:30 BP 184 / 96 (auto/); hs1 18:45 BP 247 / 119 (auto/); nn1 18:45 Pulse 114 MON; Pulse Ox 98% ; nn1 18:46 BP 208 / 100 (auto/); hs1 18:46 Pulse 113 MON; Pulse Ox 98% ; hs1 19:00 BP 201 / 84 (auto/); nn1 19:00 Pulse 104 MON; Pulse Ox 97% ; nn1 19:13 Pulse 108 MON; Pulse Ox 97% ; nn1 19:15 BP 215 / 108 (auto/); nn1 19:31 BP 217 / 106 (auto/); nn1 19:31 Pulse 112 MON; Pulse Ox 96% ; nn1 19:45 BP 222 / 88 (auto/); nn1 19:45 Pulse 108 MON; Pulse Ox 96% ; nn1 20:12 Pulse 110 MON; Pulse Ox 95% ; nn1 20:13 BP 196 / 105 (auto/); nn1 20:15 BP 197 / 103 (auto/); nn1 20:15 Pulse 111 MON; Pulse Ox 96% ; nn1 20:26 BP 178 / 103 (auto/); nn1 20:26 Pulse 108 MON; Pulse Ox 96% ; nn1 20:30 BP 196 / 110 (auto/); nn1 20:30 Pulse 108 MON; Pulse Ox 97% ; nn1 20:31 BP 200 / 109 (auto/); nn1 20:31 Pulse 110 MON; Pulse Ox 96% ; nn1 20:32 BP 177 / 99 (auto/); nn1 20:32 Pulse 113 MON; Pulse Ox 97% ; nn1 20:36 BP 158 / 94 (auto/); nn1 20:36 Pulse 114 MON; Pulse Ox 96% ; nn1 20:41 BP 174 / 102 (auto/); nn1 20:41 Pulse 110 MON; Pulse Ox 95% ; nn1 20:46 BP 179 / 103 (auto/); nn1 20:46 Pulse 109 MON; Pulse Ox 97% ; nn1 20:51 BP 155 / 101 (auto/); nn1 20:51 Pulse 107 MON; Pulse Ox 96% ; nn1 20:56 BP 171 / 101 (auto/); nn1 20:56 Pulse 108 MON; Pulse Ox 96% ; nn1 20:57 Resp 20; nn1 21:01 BP 167 / 104 (auto/); nn1 21:01 Pulse 108 MON; Pulse Ox 96% ; nn1 21:06 BP 167 / 108 (auto/); nn1 21:06 Pulse 109 MON; Pulse Ox 96% ; nn1 21:11 BP 198 / 111 (auto/); nn1 21:11 Pulse 110 MON; Pulse Ox 95% ; nn1 21:16 BP 188 / 107 (auto/); nn1 21:16 Pulse 108 MON; Pulse Ox 96% ; nn1 21:21 BP 224 / 159 (auto/); nn1 21:21 Pulse 109 MON; Pulse Ox 96% ; nn1 21:26 BP 159 / 113 (auto/); nn1 21:26 Pulse 113 MON; Pulse Ox 96% ; nn1 21:31 BP 161 / 102 (auto/); nn1 21:31 Pulse 107 MON; Pulse Ox 96% ; nn1 21:36 BP 177 / 97 (auto/); nn1 21:37 Pulse 105 MON; Pulse Ox 95% ; nn1 21:41 BP 192 / 113 (auto/); nn1 21:41 Pulse 103 MON; Pulse Ox 96% ; nn1 21:46 BP 195 / 108 (auto/); nn1 21:46 Pulse 101 MON; Pulse Ox 96% ; nn1 21:51 BP 192 / 105 (auto/); nn1 21:51 Pulse 102 MON; Pulse Ox 96% ; nn1 21:56 BP 191 / 103 (auto/); nn1 21:56 Pulse 106 MON; Pulse Ox 97% ; nn1 22:01 BP 180 / 85 (auto/); nn1 22:01 Pulse 108 MON; Pulse Ox 97% ; nn1 22:06 BP 177 / 88 (auto/); nn1 22:06 Pulse 117 MON; Pulse Ox 97% ; nn1 22:11 BP 173 / 94 (auto/); nn1 22:11 Pulse 121 MON; Pulse Ox 98% ; nn1 22:16 BP 188 / 100 (auto/); nn1 22:16 Pulse 124 MON; Pulse Ox 97% ; nn1 22:21 BP 178 / 99 (auto/); nn1 22:21 Pulse 124 MON; Pulse Ox 97% ; nn1 22:26 BP 184 / 97 (auto/); nn1 22:26 Pulse 121 MON; Pulse Ox 97% ; nn1 22:30 Resp 20; Temp 98.6(O); nn1 22:31 BP 190 / 95 (auto/); nn1 22:31 Pulse 122 MON; Pulse Ox 97% ; nn1 22:36 BP 168 / 84 (auto/); nn1 22:36 Pulse 120 MON; Pulse Ox 97% ; nn1 22:41 BP 162 / 87 (auto/); nn1 22:41 Pulse 121 MON; Pulse Ox 97% ; nn1 22:46 Pulse 123 MON; Pulse Ox 97% ; nn1 22:46 BP 181 / 99 (auto/); nn1 22:51 BP 180 / 82 (auto/); nn1 22:51 Pulse 119 MON; Pulse Ox 98% ; nn1 22:56 BP 144 / 84 (auto/); nn1 22:56 Pulse 120 MON; Pulse Ox 97% ; nn1 23:01 BP 159 / 78 (auto/); nn1 23:01 Pulse 118 MON; Pulse Ox 97% ; nn1 23:06 BP 156 / 83 (auto/); nn1 23:06 Pulse 119 MON; Pulse Ox 97% ; nn1 23:11 BP 169 / 79 (auto/); nn1 23:11 Pulse 121 MON; Pulse Ox 97% ; nn1 23:16 BP 157 / 87 (auto/); nn1 23:16 Pulse 108 MON; Pulse Ox 97% ; nn1 23:21 BP 165 / 77 (auto/); nn1 23:21 Pulse 122 MON; Pulse Ox 97% ; nn1 23:26 BP 149 / 72 (auto/); nn1 23:26 Pulse 122 MON; Pulse Ox 96% ; nn1 23:31 BP 150 / 75 (auto/); nn1 23:31 Pulse 123 MON; Pulse Ox 97% ; nn1 23:36 BP 131 / 77 (auto/); nn1 23:36 Pulse 120 MON; Pulse Ox 96% ; nn1 23:41 BP 144 / 94 (auto/); nn1 23:41 Pulse 119 MON; Pulse Ox 97% ; nn1 23:46 BP 155 / 95 (auto/); nn1 23:46 Pulse 116 MON; Pulse Ox 97% ; nn1 23:51 BP 156 / 88 (auto/); nn1 23:51 Pulse 121 MON; Pulse Ox 97% ; nn1 23:56 Pulse 122 MON; Pulse Ox 97% ; nn1 23:56 BP 157 / 82 (auto/); nn1 09/07 00:01 BP 152 / 80 (auto/); nn1 00:01 Pulse 120 MON; Pulse Ox 97% ; nn1 00:06 BP 153 / 70 (auto/); nn1 00:06 Pulse 120 MON; Pulse Ox 96% ; nn1 00:10 Pulse 101 MON; Pulse Ox 97% ; nn1 00:11 BP 156 / 77 (auto/); nn1 00:11 Pulse 141 MON; Pulse Ox 96% ; nn1 00:16 BP 140 / 74 (auto/); nn1 00:16 Pulse 120 MON; Pulse Ox 96% ; nn1 00:21 BP 152 / 77 (auto/); nn1 00:21 Pulse 118 MON; Pulse Ox 96% ; nn1 00:26 BP 146 / 74 (auto/); nn1 00:26 Pulse 116 MON; Pulse Ox 97% ; nn1 00:31 BP 139 / 76 (auto/); nn1 00:31 Pulse 116 MON; Pulse Ox 96% ; nn1 00:36 BP 152 / 86 (auto/); nn1 00:36 Pulse 114 MON; Pulse Ox 97% ; nn1 00:41 BP 161 / 82 (auto/); nn1 00:41 Pulse 116 MON; Pulse Ox 97% ; nn1 00:46 BP 151 / 89 (auto/); nn1 00:46 Pulse 115 MON; Pulse Ox 98% ; nn1 00:51 BP 147 / 84 (auto/); nn1 00:51 Pulse 113 MON; Pulse Ox 97% ; nn1 00:56 BP 143 / 76 (auto/); nn1 00:56 Pulse 114 MON; Pulse Ox 97% ; nn1 01:01 BP 160 / 73 (auto/); nn1 01:01 Pulse 114 MON; Pulse Ox 96% ; nn1 02:19 BP 119 / 180; Pulse 100; Resp 20; Temp 98.1(O); Pulse Ox 97% on R/A; Pain 4/10; jmv 09/06 17:42 Body Mass Index 37.97 (127.01 kg, 182.88 cm) dd6 MDM: 09/06 17:43 ECG WITH READING ER PHYS+CARDIAG ordered. EDMS 18:32 IV Saline Lock ordered. cs11 18:32 Enalaprilat 1.25 mg IV at calculated rate once; Administer over 5 minutes ordered. cs11 18:33 CBC Ordered. EDMS 18:33 MED Profile Ordered. EDMS 18:33 Pt & Aptt Ordered. EDMS 18:33 Cardiac Marker Panel Ordered. EDMS 18:34 Chest, 1 View Ordered. EDMS 19:00 CBC Reviewed. cs11 19:00 MED Profile Reviewed. cs11 19:00 Pt & Aptt Reviewed. cs11 19:00 Cardiac Marker Panel Reviewed. cs11 19:00 NS 0.9% 500 ml IV at bolus once ordered. cs11 19:01 CT Chest Angio R/O PE Ordered. EDMS 19:51 Enalaprilat 1.25 mg IV at bolus once; Administer over 5 minutes ordered. cs11 20:49 Financial registration complete. zo 21:24 Enalaprilat 2.5 mg IV at bolus once; Administer over 5 minutes ordered. cs11 21:29 [facility] Payment Agreement was scanned into [employer] and attached to record. zo 21:43 hydrALAZINE 15 mg IV at bolus once ordered. cs11 22:17 hydrALAZINE 10 mg IV at bolus once ordered. cs11 22:17 Acetaminophen Tablet 975 mg PO once ordered. cs11 22:[facility]. cs11 22:40 [facility] F[facility] Order complete. tmm1 22:41 ECG WITH READING ER PHYS ordered. EDMS 22:42 CARDIAC MARKER PANEL Ordered. EDMS 22:49 Chest, 1 View Reviewed. cs11 22:49 CT Chest Angio R/O PE Reviewed. cs11 09/07 02:04 CARDIAC MARKER PANEL Reviewed. mm11 03:07 T-Sheet-- Draft Copy was scanned into [employer] and attached to record. hs2 12:28 ECG/EKG was scanned into [employer] and attached to record. gb Administered Medications: 09/06 20:32 Drug: Enalaprilat 1.25 mg [enalaprilat 1.25 mg/mL intravenous solution] Route: IV; kas2 Rate: bolus; Site: left antecubital; 20:56 Drug: NS 0.9% 500 ml [sodium chloride 0.9 % intravenous solution] Route: IV; Rate: nn1 bolus; Site: left antecubital; 21:48 Not Given (Other Intervention Used): Enalaprilat 2.5 mg IV at bolus once; Administer nn1 over 5 minutes 22:00 Drug: hydrALAZINE 15 mg [hydralazine 20 mg/mL injection solution] Route: IV; Rate: nn1 bolus; Site: left antecubital; 22:36 Drug: hydrALAZINE 10 mg [hydralazine 20 mg/mL injection solution] Route: IV; Rate: nn1 bolus; Site: left antecubital; 22:36 Drug: Acetaminophen 975 mg [acetaminophen 325 mg tablet (3 tabs)] Route: PO; nn1 Signatures: Dispatcher [employer] EDMS Ivy Arrington, Reg Reg gb Ting Grant Matthew, DO DO mm11 Ron Lockhart, DO DO cs11 McLJosefina gandhi, IT APPLICATIONS MANAGER IT APPLICATIONS MANAGER tmm1 Li Ulloa RN RN ead Nunez, Nikkole, RN RN nn1 Camilla Pillai, Reg Reg hs2 Regina Medina RN kas2 The chart was reviewed and I authenticate all verbal orders and agree with the evaluation and treatment provided.Attachments: 21:29 [facility] Payment Agreement zo 09/07 03:07 T-Sheet-- Draft Copy hs2 12:28 ECG/EKG Chart Complete MTDD
== END 2016-09-07 02:23 | disposition home or self-care (01) ==
LOC: M ED 17:41
DX: I10 Essential (primary) hypertension (principal)
CPT/HCPCS: 36415; 71010; 71275; 80048; 82550; 82553; 85027; 85610; 85730; 93005; 96374; 96375; 96376; 99285; Q9967

== ENCOUNTER 2016-10-10 03:51 | Observation (INO) | payer OTHER ==
[~2016-10-10] VITALS: Ht 182.9 cm; Wt 130.0 kg
[2016-10-10 04:40] LABS: BASO % 0.5 % (0.0-1.0); EOS # 0.2 K/mm3 (0.0-0.50); EOS % 3.8 % (0.0-3.0); LARGE UNSTAINED CELL # 0.2 K/mm3 (0.0-0.4); LARGE UNSTAINED CELL % 2.8 % (0.0-4.0); LYMPH # 1.6 K/mm3 (1.5-4.5); LYMPH % 24.5 % (24.0-44.0); MEAN CORPUSCULAR HGB CONC 33.5 g/dl (32.0-36.5); MEAN CORPUSCULAR VOLUME 86.5 fl (80.0-96.0); MONO # 0.4 K/mm3 (0.0-0.8); MONO % 5.5 % (0.0-5.0); NEUTROPHILS # 4.1 K/mm3 (1.8-7.7); NEUTROPHILS % 62.9 % (36.0-66.0); PLATELET COUNT, AUTOMATED 302 k/mm3 (150-450); RED CELL DISTRIBUTION WIDTH 12.4 % (11.5-14.5); WHITE BLOOD COUNT 6.5 K/mm3 (4.0-10.0)
[2016-10-10] MEDS ORDERED: MECLIZINE 12.5 MG TAB As Ordered ONE (04:50)
[2016-10-10 04:58] LABS: ANION GAP 6 MEQ/L (8-16); BLOOD UREA NITROGEN 14 MG/DL (7-18); CALCIUM LEVEL 9.2 MG/DL (8.5-10.1); CARBON DIOXIDE LEVEL 31 MEQ/L (21-32); CHLORIDE LEVEL 101 MEQ/L (98-107); CREATININE FOR GFR 1.03 MG/DL (0.70-1.30); GLOMERULAR FILTRATION RATE > 60.0 (>56); GLUCOSE, FASTING 155 MG/DL (70-105); POTASSIUM SERUM 3.5 MEQ/L (3.5-5.1); SODIUM LEVEL 138 MEQ/L (136-145)
--- NOTE | 2016-10-10 05:20 | REPUSA ---
CLINICAL HISTORY: Dizzy. TECHNIQUE: Multiple axial brain CT scan sections were obtained from base to vertex without contrast a dministration. COMMENTS: The study shows normal configuration of sella turcica. There are no intra or extra-axial collections. There is no mass effect or midline shift. There is no evidence of hematoma formation. No hydrocephal us is present. No abnormal calcifications are noted. No significant abnormalities are seen either in the posterior fossa or supratentorial compartment. The sinuses are patent. Right mastoid air cells are noted compatible with mastoiditis. IMPRESSION: No evidence of acute intracranial pathology. Right mastoiditis. Thank you for your kind referral of this patient.
[2016-10-10] MEDS ORDERED: VANCOMYCIN 1000 MG/20 ML VIAL (J3370) As Ordered ONE (07:26)
[2016-10-10] MEDS ORDERED: ONDANSETRON 4MG/2ML VIAL (J2405) As Ordered ONE (07:26)
[2016-10-10] MEDS ORDERED: MORPHINE 4 MG/ML 1ML SYRINGE As Ordered ONE (07:26)
[2016-10-10] MEDS ORDERED: SPIR25TA2 PO (09:30)
[2016-10-10] MEDS ORDERED: ASPI81TA7 PO (09:30)
[2016-10-10] MEDS ORDERED: CHLO125TA PO (09:30)
[2016-10-10] MEDS ORDERED: LOSA100T36 PO (09:30)
[2016-10-10] MEDS ORDERED: ACETAMINOPHEN TAB 650MG DOSE (2X325MG) PO PRN (10:30)
--- NOTE | 2016-10-10 11:11 | HPEPDOC ---
General Date of Admission October 10, 2016 Primary Care Physician: PK YOUSIF DO Other Providers Cardiology, Dr. Dean Chief Complaint The patient is a 55-year-old male admitted with a reason for visit of Chest Pain High Bp. Source: Patient Exam Limitations: No limitations Timing/Duration: 4-6 hours Severity: Moderate Associated Symptoms: Chest Pain, Weakness, Dizziness History of Present Illness 55 year old male with past medical history of hypertension, possible CAD/DC as patient states his recent stress test on revealed old DC. He also states he had an echocardiogram which revealed aortic valve disease. His blood pressure medications recently adjusted on Oct 07, 2016 by his airplane pilot crop dusting Dr. Dean. Valsartan 320 changed to losartan 100 and spironolactone 25mg added. Patient states he was awoken from his sleep at around 3am because he wasn't feeling well. No specific details regarding him not feeling well. He states he awoke disoriented and weak. His symptoms resolved and he proceeded to walk to the bathroom to urinate. He returned to his bed 'not feeling right'. He checked his blood pressure which he states was 205 systolic. He then called EMS and presented to [facility]. Home Medications Scheduled Aspirin (Aspirin) 81 Mg Tab 81 MG PO DAILY (Reported) Chlorthalidone (Chlorthalidone) 12.5 Mg Halftab 12.5 MG PO DAILY (Reported) Losartan Potassium (Losartan Potassium) 100 Mg Tab 100 MG PO QHS (Reported) Spironolactone (Spironolactone) 25 Mg Tab 25 MG PO DAILY (Reported) Allergies Coded Allergies: Clonidine (Unverified Adverse Reaction, Intermediate, HEADACHE / "BURNING EYES", 10/10/16) Past Medical History Medical History 1. Hypertension 2. Coronary artery disease/DC as per patient diagnosed from nuclear stress test September 202016 Social History * Smoker: non-smoker Alcohol: denies Review of Symptoms Constitutional: Denies: Chills, Fatigue, Fever, Lethargy, Malaise, Night Sweats , Other, Weakness, Weight Loss Eyes: Denies: Conjunctivae inflammation, Eyelid inflammation, Other, Pain, Redness, Vision change ENT: Denies: Dysphagia, Ear Pain, Epistaxis, Head Aches, Other Symptoms, Post Nasal Drip, Sinus Congestion, Sore Throat Skin: Denies: Breakdown, Bruising, Dry, Itching, Jaundice, Lesions, Nail Changes, Other, Rash Pulmonary: Denies: Cough, Dyspnea, Other Symptoms, Pleuritic Chest Pain Cardiovascular: Reports: Chest Pain (resolved), Denies: Edema, Lt Headedness, Orthopnea, Other Symptoms, Palpitations, Paroxysmal Noc. Dyspnea Gastrointestinal: Denies: Abdominal Pain, Constipation, Diarrhea, Hematochezia , Melena, Nausea, Other Symptoms, Vomiting Genitourinary: Denies: Dysuria, Frequency, Hematuria, Incontinence, Other Symptoms, Retention Neurological: Reports: Confusion, Other Symptoms (all symptoms resolved ), Weakness Physical Examination General Exam: Positive: Alert, Cooperative, No Acute Distress Eye Exam: Positive: Conjunctiva & lids normal, EOMI, PERRLA, Negative: Sclera icteric ENT Exam: Positive: Atraumatic, Mucous membr. moist/pink Neck Exam: Positive: Supple Chest Exam: Positive: Clear to auscultation, Normal air movement Heart Exam: Positive: Rate Normal, Regular Rhythm Telemetry: Positive: No significant arrhythmia Abdomen Exam: Positive: Normal bowel sounds, Soft, Negative: Tenderness Extremity Exam: Negative: Edema Laboratory Data Labs 24H Laboratory Tests 2 10/10/16 04:21: Anion Gap 6L, White Blood Count 6.5, Red Blood Count 6.03, Hemoglobin 17.5, Hematocrit 52.2H, Mean Corpuscular Volume 86.5, Mean Corpuscular Hemoglobin 29.0 , Mean Corpuscular Hemoglobin Concent 33.5, Red Cell Distribution Width 12.4, Platelet Count 302, Neutrophils (%) (Auto) 62.9, Lymphocytes (%) (Auto) 24.5, Monocytes (%) (Auto) 5.5H, Eosinophils (%) (Auto) 3.8H, Basophils (%) (Auto) 0.5 , Neutrophils # (Auto) 4.1, Lymphocytes # (Auto) 1.6, Monocytes # (Auto) 0.4, Eosinophils # (Auto) 0.2, Basophils # (Auto) 0.0, Blood Urea Nitrogen 14, Creatinine 1.03, Sodium Level 138, Potassium Level 3.5, Chloride Level 101, Carbon Dioxide Level 31, Calcium Level 9.2, Total Creatine Kinase 86, Creatine Kinase MB 1.7, Creatine Kinase MB Relative Index 1.97, Glomerular Filtration Rate > 60.0, Large Unclassified Cells # 0.2, Large Unclassified Cells % 2.8, Troponin I < 0.02 10/10/16 07:57: Total Creatine Kinase 84, Creatine Kinase MB 2.1, Creatine Kinase MB Relative Index 2.50, Troponin I < 0.02 CBC/BMP Laboratory Tests 10/10/16 04:21 Calcium Level 9.2, Total Creatine Kinase 86, Red Blood Count 6.03, Mean Corpuscular Volume 86.5, Mean Corpuscular Hemoglobin 29.0, Mean Corpuscular Hemoglobin Concent 33.5, Red Cell Distribution Width 12.4, Neutrophils (%) (Auto ) 62.9, Lymphocytes (%) (Auto) 24.5, Monocytes (%) (Auto) 5.5 H, Eosinophils (% ) (Auto) 3.8 H, Basophils (%) (Auto) 0.5, Neutrophils # (Auto) 4.1, Lymphocytes # (Auto) 1.6, Monocytes # (Auto) 0.4, Eosinophils # (Auto) 0.2, Basophils # ( Auto) 0.0 Problems (1) Hypertensive urgency Status: Acute Response to Treatment: Improving Discussed With: Patient Problem Specific Plan: Monitor Clinically, Repeat Labs, Repeat Tests Problem Text: Continue with home medications. Recently adjusted by his airplane pilot crop dusting past 10/07/16. (2) Mastoiditis Status: Acute Discussed With: Patient Problem Specific Plan: Monitor Clinically Problem Text: Asymptomatic. Will start Ceftriaxone, anticipate transition to Omnicef on discharge. Plan / VTE VTE Prophylaxis Ordered?: Yes Plan Diet: Continue Current Activity: Continue Current Medications: Start Antibiotics Diagnostics: Repeat Labs in AM Anticipated Discharge: Home JAMARCUS HERNANDEZ MD Oct 10, 2016 11:11
--- NOTE | 2016-10-10 11:28 | EDDOCDS ---
Nurse's Notes [facility] Name: Fercho Prakash Age: 55 yrs Sex: Male : 1960 Arrival Date: 10/10/2016 Time: 03:51 Bed 12 Private MD: Fab Basilio Diagnosis: Chest pain, unspecified;Acute mastoiditis;Hypertension secondary to other renal disorders Presentation: 10/10 03:52 Presenting complaint: EMS states: Patient woke from sleep just not feeling well. kas2 Complained of headache and chest pressure. EMS got BP 218/110. EMS gave ASA 324 mg po and nitro X1. FSBS 130. Adult Sepsis Screening: The patient does not have new or worsening altered mentation. Patient's respiratory rate is less than 22. Systolic blood pressure is greater than 100. Patient has a qSOFA score of 0- Negative Sepsis Screen. Suicide/Homicide risk assessment- the patient denies having any suicidal and/or homicidal ideations and does not present with any other emotional, behavioral or mental health complaints. Status: Patient is not a learning support services director or dependent. Transition of care: patient was not received from another setting of care. 03:52 Acuity: IRA Level 2 kas2 03:52 Method Of Arrival: Ambulance [facility] 08:04 Aspirin was taken COORDINATOR OF ONLINE PROGRAMS. mlb1 Triage Assessment: 03:59 General: Appears in no apparent distress, comfortable, well nourished, well groomed, kas2 Behavior is appropriate for age, cooperative. Pain: Location: headache and chest pressure Pain currently is 7 out of 10 on a pain scale. Pt Declines HIV testing. Neurological: Level of Consciousness is awake, alert, Oriented to person, place, time. Cardiovascular: Capillary refill < 3 seconds Heart tones S1 S2 present Rhythm is sinus tachycardia No ectopy. Chest pain quality is pressure, radiates Does not radiate. Respiratory: Airway is patent Respiratory effort is even, unlabored, Respiratory pattern is regular, symmetrical, Breath sounds are clear bilaterally. Derm: Skin is intact, Skin is dry, Skin is pink, warm & dry. Skin temperature is warm. 08:04 Cardiovascular: Chest pain is denied is described as episodes are intermittent began. mlb1 Historical: - Allergies: clonidine; - Home Meds: 1. aspirin 81 mg Oral tab 1 tab once daily 2. chlorthalidone 25 mg Oral tab 1 tab once daily 3. spironolactone 25 mg Oral tab 1 tab once daily 4. losartan 100 mg oral tab 1 tab once daily - PMHx: Hypertension; - PSHx: none; - Social history: Smoking status: Patient states was never smoker of tobacco. No barriers to communication noted, The patient speaks fluent Gambian. - Family history: Not pertinent. - : The pt / caregiver states he / she is not on anticoagulants. Home medication list is obtained from the patient. - Exposure Risk Screening:: None identified. Screenin:02 Screening information is obtained from the patient. Fall risk: No risks identified. kas2 Assistance ADL's: requires no assistance with activities of daily living. Abuse/DV Screen: The patient / caregiver reports he/she is: not in a situation that causes fear, pain or injury. Nutritional screening: No deficits noted. Advance Directives: Currently, there is no health care proxy. There is no active DNR order. There is no living will. There is no Power of Transport Coordinator. home support is adequate. Assessment: 04:02 General: See triage note.. kas2 05:19 General: Appears in no apparent distress, comfortable, well nourished, well groomed, kas2 Behavior is appropriate for age, cooperative. Pain: Denies pain. Neurological: Level of Consciousness is awake, alert, Oriented to person, place, time. Cardiovascular: Capillary refill < 3 seconds Heart tones S1 S2 present Rhythm is sinus tachycardia No ectopy. Respiratory: Airway is patent Respiratory effort is even, unlabored, Respiratory pattern is regular, symmetrical, Breath sounds are clear bilaterally. Derm: Skin is intact, Skin is dry, Skin is pink, warm & dry. Skin temperature is warm. 06:31 General: Appears in no apparent distress, comfortable, Behavior is appropriate for age, kas2 cooperative. Pain: Denies pain. Neurological: Level of Consciousness is awake, alert, Oriented to person, place, time. Cardiovascular: Rhythm is sinus rhythm No ectopy. Respiratory: Airway is patent Respiratory effort is even, unlabored, Respiratory pattern is regular, symmetrical. Derm: Skin is intact, Skin is dry, Skin is pink, warm & dry. Skin temperature is warm. 07:45 General: Appears in no apparent distress, Behavior is appropriate for age. Pain: jjr Location: right denominational, left denominational and occipital area. Neurological: No deficits noted. Reports dizziness, headache. Cardiovascular: Rhythm is sinus rhythm Chest pain quality is tightness is located in left anterior chest wall substernal area episodes are continuous. Respiratory: Airway is patent Respiratory effort is even, unlabored, Respiratory pattern is regular, Breath sounds are clear bilaterally. Derm: No deficits noted. 08:54 General: Appears in no apparent distress, comfortable, Behavior is appropriate for age, mlb1 cooperative. Pain: Location: left denominational and right denominational Pain currently is 1 out of 10 on a pain scale. Neurological: No deficits noted. Respiratory: No deficits noted. 09:30 General: Appears in no apparent distress, Behavior is appropriate for age, cooperative. ead Neurological: No deficits noted. Respiratory: Airway is patent Respiratory effort is even, unlabored. Derm: Skin is pink, warm & dry. 10:34 General: Appears in no apparent distress, comfortable, Behavior is appropriate for age, ead cooperative. Neurological: No deficits noted. Respiratory: Airway is patent Respiratory effort is even, unlabored. Derm: Skin is pink, warm & dry. 10:59 General: SBAR faxed and tubed to PCU. ead 11:17 General: Appears in no apparent distress, comfortable, Behavior is cooperative. ead Neurological: No deficits noted. Respiratory: Airway is patent Respiratory effort is even, unlabored. GI: Denies nausea, vomiting, pain. Derm: Skin is pink, warm & dry. Vital Signs: 03:58 BP 162 / 98 (auto/); kas2 03:59 Pulse Ox 97% ; kas2 04:02 BP 162 / 98; Pulse 112; Resp 18; Temp 97.2(O); Pulse Ox 98% on R/A; Weight 130.63 kg mdr (R); Height 6 ft. 0 in. (182.88 cm) (R); Pain 7/10; 04:19 BP 159 / 86 (auto/); kas2 04:19 Pulse 86 MON; Pulse Ox 98% ; kas2 04:34 BP 164 / 83 (auto/); kas2 04:34 Pulse 84 MON; Pulse Ox 97% ; kas2 04:49 BP 162 / 83 (auto/); kas2 04:49 Pulse 80 MON; Pulse Ox 98% ; kas2 05:04 BP 162 / 85 (auto/); kas2 05:04 Pulse 84 MON; Pulse Ox 98% ; kas2 05:19 BP 146 / 82 (auto/); kas2 05:19 Pulse 74 MON; Pulse Ox 98% ; kas2 05:34 BP 149 / 78 (auto/); kas2 05:34 Pulse 80 MON; Pulse Ox 98% ; kas2 05:49 BP 166 / 85 (auto/); kas2 05:49 Pulse 74 MON; Pulse Ox 95% ; kas2 06:04 BP 152 / 83 (auto/); kas2 06:04 Pulse 76 MON; Pulse Ox 99% ; kas2 06:19 BP 159 / 96 (auto/); kas2 06:19 Pulse 84 MON; Pulse Ox 98% ; kas2 06:33 Resp 18; Temp 98.1(O); Pulse Ox 95% ; Pain 0/10; kas2 06:53 Resp 18; Temp 98.2(O); Pain 0/10; kas2 07:04 BP 174 / 87 (auto/); jjr 07:04 Pulse 76 MON; Resp 18; Pulse Ox 98% on R/A; jjr 07:56 BP 159 / 82 (auto/); jjr 07:56 Pulse 84 MON; Resp 18; Pulse Ox 98% on R/A; jjr 08:04 BP 154 / 83; Pulse 84; Resp 16; Pulse Ox 97% on R/A; Pain 2/10; mlb1 09:02 BP 149 / 86 (auto/); ead 09:02 Pulse 74 MON; Pulse Ox 96% ; ead 09:17 BP 137 / 81 (auto/); ead 09:30 Pulse 70 MON; Resp 16; Pulse Ox 98% on R/A; ead 10:47 BP 131 / 89 (auto/); Pulse 70; Resp 16; Temp 98.7(TE); Pulse Ox 96% on R/A; Pain 0/10; ead 11:02 BP 127 / 84 (auto/); ead 11:04 Pulse 74 MON; Resp 16; Temp 98.7; Pulse Ox 97% on R/A; ead 04:02 Body Mass Index 39.06 (130.63 kg, 182.88 cm) mdr Vitals: 04:01 Log In Time N/A - ambulance arrival. [facility] ED Course: 03:52 Patient visited by Jazlyn Celaya, Caregivers Non Medical. [facility] er 03:52 Fab Basilio MD is Private Physician. jlm 03:52 Patient moved to 12 [facility] er 03:56 Triage Initiated kas2 03:59 Juancarlos Oliveros DO is Attending Physician. mm11 03:59 Patient visited by Juancarlos Oliveros DO. mm11 04:02 Patient visited by Regina Medina RN. kas2 04:02 Patient visited by Yomi Perez PCA. mdr 04:06 Patient visited by Keshav Horne PCA. jmv 04:06 EKG done. (by ED staff). Reviewed by Juancarlos Oliveros DO. jmv 04:22 Patient visited by Regina Medina RN. kas2 04:22 Maintain field IV. Dressing intact. Site clean & dry. Gauge & site: 18 G left forearm. kas2 04:23 athletic monitor on. Pulse ox on. NIBP on. kas2 04:28 Regina Medina RN is Primary Nurse. kas2 04:33 Patient visited by Juancarlos Oliveros DO. mm11 05:04 Patient visited by Regina Medina RN. kas2 05:20 Patient visited by Regina Medina RN. kas2 05:22 CT Head Without Contrast Returned. EDMS 06:01 Patient visited by Juancarlos Oliveros DO. mm11 06:25 Patient visited by Yomi Perez PCA. mdr 06:25 Assisted with urinal. mdr 06:33 Patient visited by Regina Medina RN. kas2 06:52 [facility] Payment Agreement was scanned into [employer] and attached to record. hs2 06:53 Patient visited by Regina Medina RN. kas2 06:54 Patient name changed from Fercho\S\L\S\Prakash\S\ to Fercho\S\Denny\S\Prakash. EDMS 07:30 EKG done. (by ED staff). Reviewed by Juancarlos Oliveros DO. jrd 07:46 Patient visited by Akila Mace RN. jjr 07:58 CARDIAC MARKER PANEL Sent. jjr 07:58 Discontinued lock intact, bleeding controlled, pressure dressing applied, No jjr redness/swelling at site. redness and swelling above left AC line. 07:59 Inserted saline lock: 20 gauge in right hand and blood collected. jjr 08:05 No procedures done that require assistance. mlb1 08:19 Patient visited by Juancarlos Oliveros DO. mm11 08:55 Patient visited by Juancarlos Oliveros DO. mm11 08:56 Patient visited by Elver River RN. mlb1 09:03 Li Ulloa,RN is Primary Nurse. ead 09:17 Primary Nurse role handed off by Regina Medina RN jjr 09:30 Patient visited by Li Ulloa RN. ead 09:32 Dmitry Fernandez is Hospitalizing Provider. ml 11:10 The patient / caregiver is instructed regarding the plan of care and ED course. ead Administered Medications: 05:04 Drug: Meclizine 25 mg [meclizine 12.5 mg tablet (2 tabs)] Route: PO; kas2 07:44 Drug: morphine 4 mg [morphine 4 mg/mL intravenous cartridge (1 mL)] Route: IVP; Site: jjr left antecubital; 08:04 Follow up: BP 154 / 83; Pulse 84 bpm; Resp 16 bpm; Pulse Ox 97% RA; Pain 2/10 mlb1 07:45 Drug: Ondansetron 4 mg [ondansetron HCl 2 mg/mL intravenous solution (2 mL)] Route: jjr IVP; Site: left antecubital; 07:45 Drug: vancomycin (loading dose for pt. wt. >= 80kg) 2000 mg [vancomycin 500 mg jjr intravenous solution] Route: IVPB; Site: left antecubital; 09:49 Follow up: Response: No Adverse Reaction; IV Status: Completed infusion ead Order Results: Lab Order: Basic Metabolic Profile; SPEC'M 10/10/16 04:21 Test: GLUCOSE, FASTING; Value: 155; Range: 70-105; Abnormal: Above high normal; Units: MG/DL; Status: F Test: BLOOD UREA NITROGEN; Value: 14; Range: 7-18; Units: MG/DL; Status: F Test: CREATININE FOR GFR; Value: 1.03; Range: 0.70-1.30; Units: MG/DL; Status: F Test: GLOMERULAR FILTRATION RATE; Value: > 60.0; Range: >56; Status: F Test: SODIUM LEVEL; Value: 138; Range: 136-145; Units: MEQ/L; Status: F Test: POTASSIUM SERUM; Value: 3.5; Range: 3.5-5.1; Units: MEQ/L; Status: F Test: CHLORIDE LEVEL; Value: 101; Range: 98-107; Units: MEQ/L; Status: F Test: CARBON DIOXIDE LEVEL; Value: 31; Range: 21-32; Units: MEQ/L; Status: F Test: ANION GAP; Value: 6; Range: 8-16; Abnormal: Below low normal; Units: MEQ/L; Status: F Test: CALCIUM LEVEL; Value: 9.2; Range: 8.5-10.1; Units: MG/DL; Status: F Test Note: ; Units are mL/min/1.73 m2 Chronic Kidney Disease Staging per NKF: Stage I & II GFR >=60 Normal to Mildly Decreased Stage III GFR 30-59 Moderately Decreased Stage IV GFR 15-29 Severely Decreased Stage V GFR <15 Very Little GFR Left ESRD GFR <15 on MOTOR VEHICLE ASSEMBLER Lab Order: CBC with Diff; SPEC'M 10/10/16 04:21 Test: WHITE BLOOD COUNT; Value: 6.5; Range: 4.0-10.0; Units: K/mm3; Status: F Test: RED BLOOD COUNT; Value: 6.03; Range: 4.30-6.10; Units: M/mm3; Status: F Test: HEMOGLOBIN; Value: 17.5; Range: 14.0-18.0; Units: g/dl; Status: F Test: HEMATOCRIT; Value: 52.2; Range: 42.0-52.0; Abnormal: Above high normal; Units: %; Status: F Test: MEAN CORPUSCULAR VOLUME; Value: 86.5; Range: 80.0-96.0; Units: fl; Status: F Test: MEAN CORPUSCULAR HEMOGLOBIN; Value: 29.0; Range: 27.0-33.0; Units: pg; Status: F Test: MEAN CORPUSCULAR HGB CONC; Value: 33.5; Range: 32.0-36.5; Units: g/dl; Status: F Test: RED CELL DISTRIBUTION WIDTH; Value: 12.4; Range: 11.5-14.5; Units: %; Status: F Test: PLATELET COUNT, AUTOMATED; Value: 302; Range: 150-450; Units: k/mm3; Status: F Test: NEUTROPHILS %; Value: 62.9; Range: 36.0-66.0; Units: %; Status: F Test: LYMPH %; Value: 24.5; Range: 24.0-44.0; Units: %; Status: F Test: MONO %; Value: 5.5; Range: 0.0-5.0; Abnormal: Above high normal; Units: %; Status: F Test: EOS %; Value: 3.8; Range: 0.0-3.0; Abnormal: Above high normal; Units: %; Status: F Test: BASO %; Value: 0.5; Range: 0.0-1.0; Units: %; Status: F Test: LARGE UNSTAINED CELL %; Value: 2.8; Range: 0.0-4.0; Units: %; Status: F Test: NEUTROPHILS #; Value: 4.1; Range: 1.8-7.7; Units: K/mm3; Status: F Test: LYMPH #; Value: 1.6; Range: 1.5-4.5; Units: K/mm3; Status: F Test: MONO #; Value: 0.4; Range: 0.0-0.8; Units: K/mm3; Status: F Test: EOS #; Value: 0.2; Range: 0.0-0.50; Units: K/mm3; Status: F Test: BASO #; Value: 0.0; Range: 0.0-0.2; Units: K/mm3; Status: F Test: LARGE UNSTAINED CELL #; Value: 0.2; Range: 0.0-0.4; Units: K/mm3; Status: F Lab Order: Cardiac Injury Profile; SPEC'M 10/10/16 04:21 Test: CPK CREATINE PHOSPHOKINASE; Value: 86; Range: 39-308; Units: U/L; Status: F Test: CK-MB VALUE MASS; Value: 1.7; Range: 0.0-3.6; Units: NG/ML; Status: F Test: MB/CK RELATIVE INDEX; Value: 1.97; Range: < OR =4; Status: F Test Note: ; DIAGNOSIS CRITERIA MMB ng/ml Relative Index (RI) NON-AMI < or = 5 N/A KWOK ZONE > 5 < or = 4 AMI > 5 > 4 Lab Order: Troponin; [facility] 10/10/16 04:21 Test: TROPONIN I; Value: < 0.02; Range: < 0.10; Units: NG/ML; Status: F Test Note: ; Troponin I Reference Interval for Siemens Healarium LOCI: 99th Percentile= 0.00-0.045 ng/ml Risk Stratification: <= 0.10 ng/ml Decreased Risk for Adverse Clinical Events. 0.10-1.50 ng/ml Increased Risk for Adverse Clinical Events. Evaluation of additional criterion and/or repeat testing in 2-6 hours is suggested to rule out myocardial damage. >= 1.50 ng/ml Indicative of Myocardial Injury. Lab Order: CARDIAC MARKER PANEL; [facility] 10/10/16 07:57 Test: CPK CREATINE PHOSPHOKINASE; Value: 84; Range: 39-308; Units: U/L; Status: F Test: CK-MB VALUE MASS; Value: 2.1; Range: 0.0-3.6; Units: NG/ML; Status: F Test: MB/CK RELATIVE INDEX; Value: 2.50; Range: < OR =4; Status: F Test: TROPONIN I; Value: < 0.02; Range: < 0.10; Units: NG/ML; Status: F Test Note: ; DIAGNOSIS CRITERIA MMB ng/ml Relative Index (RI) NON-AMI < or = 5 N/A KWOK ZONE > 5 < or = 4 AMI > 5 > 4 Lab Order: THYROID STIMULATING HORMONE; [facility] 10/10/16 07:57 Test: THYROID STIMULATING HORMONE; Value: 0.787; Range: 0.358-3.740; Units: uIU/ML; Status: F Radiology Order: CT Head Without Contrast Test: CT Head Without Contrast REASON FOR EXAMINATION: dizziness; ; CLINICAL HISTORY: Dizzy.; TECHNIQUE: Multiple axial brain CT scan sections were obtained from base to vertex without contrast a; dministration.; COMMENTS:; The study shows normal configuration of sella turcica. There are no intra or extra-axial collections.; There is no mass effect or midline shift. There is no evidence of hematoma formation. No hydrocephal; us is present. No abnormal calcifications are noted.; No significant abnormalities are seen either in the posterior fossa or supratentorial compartment.; The sinuses are patent. Right mastoid air cells are noted compatible with mastoiditis.; IMPRESSION:; No evidence of acute intracranial pathology.; Right mastoiditis.; Thank you for your kind referral of this patient.; ; Outcome: 09:32 Decision to Hospitalize by Provider. 11:10 Admission hand-off: Report Faxed Fax receipt verified by DIANNE Traore on PCU. Property ead :Personal belongings accompany Pt. 11:10 Discharge Assessment: Patient awake and alert. obeys commands, Oriented to person, ead place and time. patient administered narcotics - yes. Patient was admitted to the hospital or transferred to another facility. The following High Risk Discharge criteria are identified: None. Admitted to PCU accompanied by nurse, accompanied by tech, via stretcher, on monitor, with chart. Condition: stable. CT Study completed. 11:27 Patient left the ED. ead Signatures: Dispatcher [employer] EDMS Peng Clark MD MD Elver River, RN RN mlb1 Juancarlos Oliveros, DO DO mm11 Akila Mace, RN RN Li CabreraRN RN Jazlyn Chun, Caregivers Non Medical Unit jlm Unruly Bella, HOOKER LASTER HOOKER LASTER jrd Yomi Perez, HOOKER LASTER HOOKER LASTER mdr Camilla Pillai, Reg Reg hs2 Regina MedinaRN RN kas2 Keshav Horne, HOOKER LASTER HOOKER LASTER jmv Corrections: (The following items were deleted from the chart) 08:04 07:59 Pain 2/10 Adult jjr mlb1 MTDD
--- NOTE | 2016-10-10 11:28 | EDDOCDS ---
Physician Documentation [facility] Name: Fercho Prakash Age: 55 yrs Sex: Male : 1960 Arrival Date: 10/10/2016 Time: 03:51 Bed 12 Private MD: Fab Basilio Disposition: 10/10/16 09:32 Hospitalization ordered by Dmitry Fernandez for Inpatient Admission. Preliminary diagnosis are Chest pain, unspecified, Acute mastoiditis, Hypertension secondary to other renal disorders. - Bed requested for PCU. - Status is Inpatient Admission. ead - Condition is Stable. - Problem is new. - Symptoms are unchanged. Historical: - Allergies: clonidine; - Home Meds: 1. aspirin 81 mg Oral tab 1 tab once daily 2. chlorthalidone 25 mg Oral tab 1 tab once daily 3. spironolactone 25 mg Oral tab 1 tab once daily 4. losartan 100 mg oral tab 1 tab once daily - PMHx: Hypertension; - PSHx: none; - Social history: Smoking status: Patient states was never smoker of tobacco. No barriers to communication noted, The patient speaks fluent [place]ese. - Family history: Not pertinent. - : The pt / caregiver states he / she is not on anticoagulants. Home medication list is obtained from the patient. - Exposure Risk Screening:: None identified. Vital Signs: 10/10 03:58 BP 162 / 98 (auto/); kas2 03:59 Pulse Ox 97% ; kas2 04:02 BP 162 / 98; Pulse 112; Resp 18; Temp 97.2(O); Pulse Ox 98% on R/A; Weight 130.63 kg / mdr 287.99 lbs (R); Height 6 ft. 0 in. (182.88 cm) (R); Pain 7/10; 04:19 BP 159 / 86 (auto/); kas2 04:19 Pulse 86 MON; Pulse Ox 98% ; kas2 04:34 BP 164 / 83 (auto/); kas2 04:34 Pulse 84 MON; Pulse Ox 97% ; kas2 04:49 BP 162 / 83 (auto/); kas2 04:49 Pulse 80 MON; Pulse Ox 98% ; kas2 05:04 BP 162 / 85 (auto/); kas2 05:04 Pulse 84 MON; Pulse Ox 98% ; kas2 05:19 BP 146 / 82 (auto/); kas2 05:19 Pulse 74 MON; Pulse Ox 98% ; kas2 05:34 BP 149 / 78 (auto/); kas2 05:34 Pulse 80 MON; Pulse Ox 98% ; kas2 05:49 BP 166 / 85 (auto/); kas2 05:49 Pulse 74 MON; Pulse Ox 95% ; kas2 06:04 BP 152 / 83 (auto/); kas2 06:04 Pulse 76 MON; Pulse Ox 99% ; kas2 06:19 BP 159 / 96 (auto/); kas2 06:19 Pulse 84 MON; Pulse Ox 98% ; kas2 06:33 Resp 18; Temp 98.1(O); Pulse Ox 95% ; Pain 0/10; kas2 06:53 Resp 18; Temp 98.2(O); Pain 0/10; kas2 07:04 BP 174 / 87 (auto/); jjr 07:04 Pulse 76 MON; Resp 18; Pulse Ox 98% on R/A; jjr 07:56 BP 159 / 82 (auto/); jjr 07:56 Pulse 84 MON; Resp 18; Pulse Ox 98% on R/A; jjr 08:04 BP 154 / 83; Pulse 84; Resp 16; Pulse Ox 97% on R/A; Pain 2/10; mlb1 09:02 BP 149 / 86 (auto/); ead 09:02 Pulse 74 MON; Pulse Ox 96% ; ead 09:17 BP 137 / 81 (auto/); ead 09:30 Pulse 70 MON; Resp 16; Pulse Ox 98% on R/A; ead 10:47 BP 131 / 89 (auto/); Pulse 70; Resp 16; Temp 98.7(TE); Pulse Ox 96% on R/A; Pain 0/10; ead 11:02 BP 127 / 84 (auto/); ead 11:04 Pulse 74 MON; Resp 16; Temp 98.7; Pulse Ox 97% on R/A; ead 04:02 Body Mass Index 39.06 (130.63 kg, 182.88 cm) mdr MDM: 03:55 ECG WITH READING ER PHYS+CARDIAG ordered. EDMS 04:34 Silk Brusher/Pulse Ox/q 30 min VS ordered. mm11 04:34 IV Saline Lock ordered. mm11 04:34 Rhythm Strip to chart ordered. mm11 04:34 Undress patient appropriately for examination ordered. mm11 04:35 Basic Metabolic Profile Ordered. EDMS 04:35 CBC with Diff Ordered. EDMS 04:35 Cardiac Injury Profile Ordered. EDMS 04:35 Troponin Ordered. EDMS 04:36 Chest, 2 View (pa\E\lat) Ordered. EDMS 04:36 CT Head Without Contrast Ordered. EDMS 04:42 Meclizine 25 mg PO once ordered. mm11 05:02 Basic Metabolic Profile Reviewed. mm11 05:02 CBC with Diff Reviewed. mm11 05:02 Cardiac Injury Profile Reviewed. mm11 05:02 Troponin Reviewed. mm11 06:52 Financial registration complete. hs2 06:52 [facility] Payment Agreement was scanned into [employer] and attached to record. hs2 06:55 CT Head Without Contrast Reviewed. mm11 07:15 morphine 4 mg IVP every 30 minutes; Document pain score/vitals after each dose (Hold if mm11 SBP < 90mmHg) x2 ordered. 07:15 Redraw CIP &Troponin (put time in details section) ordered. mm11 07:15 Repeat EKG (put time details section) ordered. mm11 07:15 Ondansetron 4 mg IVP once ordered. mm11 07:16 vancomycin (loading dose for pt. wt. >= 80kg) 2000 mg IVPB once ordered. mm11 07:18 BED REQUEST+ADM ordered. EDMS 07:25 Redraw CIP &Troponin (put time in details section) complete. deg 07:25 Repeat EKG (put time details section) complete. deg 07:25 ECG WITH READING ER PHYS ordered. EDMS 07:26 CARDIAC MARKER PANEL Ordered. EDMS 08:42 CARDIAC MARKER PANEL Reviewed. mm11 10:32 Admission / Observation Status ordered. EDMS 10:32 2 GRAM SODIUM DIET ordered. EDMS 10:36 THYROID STIMULATING HORMONE Ordered. EDMS Administered Medications: 05:04 Drug: Meclizine 25 mg [meclizine 12.5 mg tablet (2 tabs)] Route: PO; kas2 07:44 Drug: morphine 4 mg [morphine 4 mg/mL intravenous cartridge (1 mL)] Route: IVP; Site: jjr left antecubital; 08:04 Follow up: BP 154 / 83; Pulse 84 bpm; Resp 16 bpm; Pulse Ox 97% RA; Pain 2/10 mlb1 07:45 Drug: Ondansetron 4 mg [ondansetron HCl 2 mg/mL intravenous solution (2 mL)] Route: jjr IVP; Site: left antecubital; 07:45 Drug: vancomycin (loading dose for pt. wt. >= 80kg) 2000 mg [vancomycin 500 mg jjr intravenous solution] Route: IVPB; Site: left antecubital; 09:49 Follow up: Response: No Adverse Reaction; IV Status: Completed infusion ead Signatures: Dispatcher [employer] EDMS Peng Clark MD MD ml Murray, Denise, Motor Block Mechanic Unit deg Juancarlos Oliveros, DO mm11 Li UlloaRN RN ead Camilla Pillai, Reg Reg hs2 Regina Medina RN RN kas2 Elver River RN mlb1 Akila Mace RN jjr The chart was reviewed and I authenticate all verbal orders and agree with the evaluation and treatment provided.Corrections: (The following items were deleted from the chart) 10:36 10:31 THYROID STIMULATING HORMONE ordered. EDDE EDMS Attachments: 06:52 [facility] Payment Agreement hs2 MTDD
[2016-10-10 11:45] VITALS: BP 176/94
[2016-10-10] MEDS: ASPIRIN 81 MG ENTERIC TAB PO SCH (12:30)
[2016-10-10] MEDS: CHLORTHALIDONE 12.5MG PER 1/2 TABLET PO SCH (12:30)
[2016-10-10] MEDS: SPIRONOLACTONE 25 MG TAB PO SCH (12:30)
--- NOTE | 2016-10-10 14:04 | REP ---
CHEST PA AND LATERAL: 10/10/2016. Comparison portable chest 09/06/2016. Clinical history: Chest pain. Findings: Two view show the lungs with bilateral lateral pleural thickening. There is minor basilar fibrotic change. Some mild cardiomegaly with left atrial and ventricular enlargement seen. No vascular redistribution or pulmonary edema. The aorta is mildly tortuous at the arch but normal for age. Airway intact. No mediastinal or hilar mass. Bony thorax without focal lesion. Impression: 1. Some mild cardiomegaly without pulmonary edema, pleural effusion or definite infiltrate. Stable examination. Signed by Mitchell Gamboa MD 10/10/2016 07:25 P
[2016-10-10 16:00] VITALS: BP 146/83
[2016-10-10] MEDS ORDERED: cefTRIAXone SOD 2 GM in D5W MINI-BAG PLUS 50 ML IV SCH (16:00)
[2016-10-10 19:15] VITALS: BP 159/86
--- NOTE | 2016-10-10 19:26 | ECGEPIP ---
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
--- NOTE | 2016-10-10 19:30 | ECGEPIP ---
Stationary ECG Study [facility] - ED Test Date: 2016-10-10 Pat Name: GEENA MATSON Department: Room: - Gender: M Approver: karan : 1960 Requested By: SAY Rivas Order Number: [id number] Reading MD: Peng Clark Measurements Intervals [place] Rate: 71 P: 7 MO: 200 QRS: -29 QRSD: 92 T: -7 QT: 356 QTc: 389 Interpretive Statements SINUS RHYTHM INFERIOR MYOCARDIAL INFARCTION, OF INDETERMINATE AGE LEFTWARD AXIS DELAYED R WAVE PROGRESSION - SPETAL MYOCARDIAL INFARCTION AGE UNDETERMINED PATTERN CONSISTENT WITH PULMONARY DISEASE NONSPECIFIC ST T WAVE CHANGED CW 10/10/16 - RATE DECREASED Electronically Signed On 10-10-2016 19:30:14 EST by Peng Clark
[2016-10-10 20:50] VITALS: BP 142/84
[2016-10-10] MEDS ORDERED: LOSARTAN 50 MG TAB PO SCH (21:00)
[2016-10-10 23:59] VITALS: BP 136/62
[2016-10-11 04:45] VITALS: BP 150/83
[2016-10-11 05:52] LABS: ANION GAP 7 MEQ/L (8-16); BLOOD UREA NITROGEN 13 MG/DL (7-18); CALCIUM LEVEL 9.3 MG/DL (8.5-10.1); CARBON DIOXIDE LEVEL 31 MEQ/L (21-32); CHLORIDE LEVEL 103 MEQ/L (98-107); CREATININE FOR GFR 1.05 MG/DL (0.70-1.30); GLOMERULAR FILTRATION RATE > 60.0 (>56); GLUCOSE, FASTING 98 MG/DL (70-105); POTASSIUM SERUM 4.1 MEQ/L (3.5-5.1); SODIUM LEVEL 141 MEQ/L (136-145)
[2016-10-11 05:59] LABS: MEAN CORPUSCULAR HEMOGLOBIN 28.4 pg (27.0-33.0); MEAN CORPUSCULAR HGB CONC 33.1 g/dl (32.0-36.5); MEAN CORPUSCULAR VOLUME 85.9 fl (80.0-96.0); RED CELL DISTRIBUTION WIDTH 12.5 % (11.5-14.5); WHITE BLOOD COUNT 7.3 K/mm3 (4.0-10.0)
[2016-10-11] MEDS: SPIRONOLACTONE 25 MG TAB PO SCH (07:51)
[2016-10-11] MEDS: ASPIRIN 81 MG ENTERIC TAB PO SCH (07:51)
[2016-10-11] MEDS: CHLORTHALIDONE 12.5MG PER 1/2 TABLET PO SCH (07:52)
[2016-10-11 08:00] VITALS: BP 130/86
[2016-10-11] MEDS ORDERED: AUGM875T27 PO (10:21)
--- NOTE | 2016-10-11 12:53 | DS.PDOC ---
Discharge Summary General Date of Admission Oct 10, 2016 at 10:23 Date of Discharge Oct 11, 2016 at 12:35 Discharge Summary PROCEDURES PERFORMED DURING STAY: [None.] COMPLICATIONS/CHIEF COMPLAINT: Hypertensive Urgency; Mastoiditis ADMISSION DIAGNOSES: 1. Hypertensive urgency 2. Mastoiditis DISCHARGE DIAGNOSES: 1. Mastoiditis 2. Hypertension/Hypertensive urgency HISTORY OF PRESENT ILLNESS: Patient is a 55 year old male presenting for elevated blood pressures. HOSPITAL COURSE: Patient was admitted for hypertensive urgency, with an incidental finding of mastoiditis. Patient was admitted to telemetry for further monitoring. He remained normotensive with his home medication regimen. He does follow with operator prefinish and his medications were recently adjusted. Incidental finding for mastoiditis on CT head, patient asymptomatic. Discussed with ENT Dr. Douglass, recommending 2 weeks oral antibiotics and outpatient follow up. DISCHARGE MEDICATIONS: Please see below. ALLERGIES: Please see below. PHYSICAL EXAMINATION ON DISCHARGE: VITAL SIGNS: Please see below. GENERAL: NAD HEENT: NC/AT, EOMI, PERRL NECK: supple CARDIOVASCULAR EXAMINATION: +S1S2, RRR RESPIRATORY EXAMINATION: CTA B/L ABDOMINAL EXAMINATION: soft, NT, +BS EXTREMITIES: no edema SKIN: no rashes NEUROLOGICAL EXAMINATION: no gross focal deficits PSYCHIATRIC EXAMINATION: AAOx3 LABORATORY DATA: Please see below. DISCHARGE CONDITION: [Stable]. DISPOSITION: Discharge home. ACTIVITY: As tolerated. DIET: 2 gram sodium DISCHARGE PLAN AND INSTRUCTIONS: 1. Follow up with PCP in 3-5 days. TIME SPENT ON DISCHARGE: Greater than 30 minutes. Vital Signs/I&Os Vital Signs Date Time Temp Pulse Resp B/P Pulse Ox O2 Delivery O2 Flow Rate FiO2 10/11/16 08:00 Room Air 10/11/16 08:00 96.8 70 18 130/86 99 I&O- Last 24 Hours up to 6 AM 10/11/16 06:00 Intake Total 200 ml Output Total 0 ml Balance 200 ml Laboratory Data Labs 24H Laboratory Tests 2 10/11/16 04:56: Anion Gap 7L, Blood Urea Nitrogen 13, Creatinine 1.05, Sodium Level 141, Potassium Level 4.1, Chloride Level 103, Carbon Dioxide Level 31, Calcium Level 9.3, Glomerular Filtration Rate > 60.0 CBC/BMP Laboratory Tests 10/11/16 04:56 Calcium Level 9.3, Red Blood Count 5.52, Mean Corpuscular Volume 85.9, Mean Corpuscular Hemoglobin 28.4, Mean Corpuscular Hemoglobin Concent 33.1, Red Cell Distribution Width 12.5 Medications Scheduled Amoxicillin/Clavulanate Potas (Augmentin 875-125 mg) 1 Tab Tab 875 MG PO BID Aspirin (Aspirin) 81 Mg Tab 81 MG PO DAILY Chlorthalidone (Chlorthalidone) 12.5 Mg Halftab 12.5 MG PO DAILY Losartan Potassium (Losartan Potassium) 100 Mg Tab 100 MG PO QHS Spironolactone (Spironolactone) 25 Mg Tab 25 MG PO DAILY Allergies Coded Allergies: Clonidine (Unverified Adverse Reaction, Intermediate, HEADACHE / "BURNING EYES", 10/10/16) JAMARCUS HERNANDEZ MD Oct 11, 2016 12:53
--- NOTE | 2016-10-12 12:28 | EDDOCDS ---
Nurse's Notes [facility] Name: Fercho Prakash Age: 55 yrs Sex: Male : 1960 Arrival Date: 10/10/2016 Time: 03:51 Bed 12 Private MD: Fab Basilio Diagnosis: Chest pain, unspecified;Acute mastoiditis;Hypertension secondary to other renal disorders Presentation: 10/10 03:52 Presenting complaint: EMS states: Patient woke from sleep just not feeling well. kas2 Complained of headache and chest pressure. EMS got BP 218/110. EMS gave ASA 324 mg po and nitro X1. FSBS 130. Adult Sepsis Screening: The patient does not have new or worsening altered mentation. Patient's respiratory rate is less than 22. Systolic blood pressure is greater than 100. Patient has a qSOFA score of 0- Negative Sepsis Screen. Suicide/Homicide risk assessment- the patient denies having any suicidal and/or homicidal ideations and does not present with any other emotional, behavioral or mental health complaints. 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 Transition of care: patient was not received from another setting of care. 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 mlb1 Triage Assessment: 03:59 General: Appears in no apparent distress, comfortable, well nourished, well groomed, kas2 Behavior is appropriate for age, cooperative. Pain: Location: headache and chest pressure Pain currently is 7 out of 10 on a pain scale. Pt Declines HIV testing. Neurological: Level of Consciousness is awake, alert, Oriented to person, place, time. Cardiovascular: Capillary refill < 3 seconds Heart tones S1 S2 present Rhythm is sinus tachycardia No ectopy. Chest pain quality is pressure, radiates Does not radiate. Respiratory: Airway is patent Respiratory effort is even, unlabored, Respiratory pattern is regular, symmetrical, Breath sounds are clear bilaterally. Derm: Skin is intact, Skin is dry, Skin is pink, warm & dry. Skin temperature is warm. 08:04 Cardiovascular: Chest pain is denied is described as episodes are intermittent began. mlb1 Historical: - Allergies: clonidine; - Home Meds: 1. aspirin 81 mg Oral tab 1 tab once daily 2. chlorthalidone 25 mg Oral tab 1 tab once daily 3. spironolactone 25 mg Oral tab 1 tab once daily 4. losartan 100 mg oral tab 1 tab once daily - PMHx: Hypertension; - PSHx: none; - Social history: Smoking status: Patient states was never smoker of tobacco. No barriers to communication noted, The patient speaks fluent Croatian. - Family history: Not pertinent. - : The pt / caregiver states he / she is not on anticoagulants. Home medication list is obtained from the patient. - Exposure Risk Screening:: None identified. Screenin:02 Screening information is obtained from the patient. Fall risk: No risks identified. kas2 Assistance ADL's: requires no assistance with activities of daily living. Abuse/DV Screen: The patient / caregiver reports he/she is: not in a situation that causes fear, pain or injury. Nutritional screening: No deficits noted. Advance Directives: Currently, there is no health care proxy. There is no active DNR order. There is no living will. There is no Power of Clerical And Office Support Workers. home support is adequate. Assessment: 04:02 General: See triage note.. kas2 05:19 General: Appears in no apparent distress, comfortable, well nourished, well groomed, kas2 Behavior is appropriate for age, cooperative. Pain: Denies pain. Neurological: Level of Consciousness is awake, alert, Oriented to person, place, time. Cardiovascular: Capillary refill < 3 seconds Heart tones S1 S2 present Rhythm is sinus tachycardia No ectopy. Respiratory: Airway is patent Respiratory effort is even, unlabored, Respiratory pattern is regular, symmetrical, Breath sounds are clear bilaterally. Derm: Skin is intact, Skin is dry, Skin is pink, warm & dry. Skin temperature is warm. 06:31 General: Appears in no apparent distress, comfortable, Behavior is appropriate for age, kas2 cooperative. Pain: Denies pain. Neurological: Level of Consciousness is awake, alert, Oriented to person, place, time. Cardiovascular: Rhythm is sinus rhythm No ectopy. Respiratory: Airway is patent Respiratory effort is even, unlabored, Respiratory pattern is regular, symmetrical. Derm: Skin is intact, Skin is dry, Skin is pink, warm & dry. Skin temperature is warm. 07:45 General: Appears in no apparent distress, Behavior is appropriate for age. Pain: jjr Location: right mandaeism, left mandaeism and occipital area. Neurological: No deficits noted. Reports dizziness, headache. Cardiovascular: Rhythm is sinus rhythm Chest pain quality is tightness is located in left anterior chest wall substernal area episodes are continuous. Respiratory: Airway is patent Respiratory effort is even, unlabored, Respiratory pattern is regular, Breath sounds are clear bilaterally. Derm: No deficits noted. 08:54 General: Appears in no apparent distress, comfortable, Behavior is appropriate for age, mlb1 cooperative. Pain: Location: left mandaeism and right mandaeism Pain currently is 1 out of 10 on a pain scale. Neurological: No deficits noted. Respiratory: No deficits noted. 09:30 General: Appears in no apparent distress, Behavior is appropriate for age, cooperative. ead Neurological: No deficits noted. Respiratory: Airway is patent Respiratory effort is even, unlabored. Derm: Skin is pink, warm & dry. 10:34 General: Appears in no apparent distress, comfortable, Behavior is appropriate for age, ead cooperative. Neurological: No deficits noted. Respiratory: Airway is patent Respiratory effort is even, unlabored. Derm: Skin is pink, warm & dry. 10:59 General: SBAR faxed and tubed to PCU. ead 11:17 General: Appears in no apparent distress, comfortable, Behavior is cooperative. ead Neurological: No deficits noted. Respiratory: Airway is patent Respiratory effort is even, unlabored. GI: Denies nausea, vomiting, pain. Derm: Skin is pink, warm & dry. Vital Signs: 03:58 BP 162 / 98 (auto/); kas2 03:59 Pulse Ox 97% ; kas2 04:02 BP 162 / 98; Pulse 112; Resp 18; Temp 97.2(O); Pulse Ox 98% on R/A; Weight 130.63 kg mdr (R); Height 6 ft. 0 in. (182.88 cm) (R); Pain 7/10; 04:19 BP 159 / 86 (auto/); kas2 04:19 Pulse 86 MON; Pulse Ox 98% ; kas2 04:34 BP 164 / 83 (auto/); kas2 04:34 Pulse 84 MON; Pulse Ox 97% ; kas2 04:49 BP 162 / 83 (auto/); kas2 04:49 Pulse 80 MON; Pulse Ox 98% ; kas2 05:04 BP 162 / 85 (auto/); kas2 05:04 Pulse 84 MON; Pulse Ox 98% ; kas2 05:19 BP 146 / 82 (auto/); kas2 05:19 Pulse 74 MON; Pulse Ox 98% ; kas2 05:34 BP 149 / 78 (auto/); kas2 05:34 Pulse 80 MON; Pulse Ox 98% ; kas2 05:49 BP 166 / 85 (auto/); kas2 05:49 Pulse 74 MON; Pulse Ox 95% ; kas2 06:04 BP 152 / 83 (auto/); kas2 06:04 Pulse 76 MON; Pulse Ox 99% ; kas2 06:19 BP 159 / 96 (auto/); kas2 06:19 Pulse 84 MON; Pulse Ox 98% ; kas2 06:33 Resp 18; Temp 98.1(O); Pulse Ox 95% ; Pain 0/10; kas2 06:53 Resp 18; Temp 98.2(O); Pain 0/10; kas2 07:04 BP 174 / 87 (auto/); jjr 07:04 Pulse 76 MON; Resp 18; Pulse Ox 98% on R/A; jjr 07:56 BP 159 / 82 (auto/); jjr 07:56 Pulse 84 MON; Resp 18; Pulse Ox 98% on R/A; jjr 08:04 BP 154 / 83; Pulse 84; Resp 16; Pulse Ox 97% on R/A; Pain 2/10; mlb1 09:02 BP 149 / 86 (auto/); ead 09:02 Pulse 74 MON; Pulse Ox 96% ; ead 09:17 BP 137 / 81 (auto/); ead 09:30 Pulse 70 MON; Resp 16; Pulse Ox 98% on R/A; ead 10:47 BP 131 / 89 (auto/); Pulse 70; Resp 16; Temp 98.7(TE); Pulse Ox 96% on R/A; Pain 0/10; ead 11:02 BP 127 / 84 (auto/); ead 11:04 Pulse 74 MON; Resp 16; Temp 98.7; Pulse Ox 97% on R/A; ead 04:02 Body Mass Index 39.06 (130.63 kg, 182.88 cm) mdr Vitals: 04:01 Log In Time N/A - ambulance arrival. [facility] ED Course: 03:52 Patient visited by Jazlyn Celaya, Cvt Tech. [facility] 03:52 Fab Basilio MD is Private Physician. jlm 03:52 Patient moved to [facility] 03:56 Triage Initiated kas2 03:59 Juancarlos Oliveros DO is Attending Physician. mm11 03:59 Patient visited by Juancarlos Oliveros DO. mm11 04:02 Patient visited by Regina Medina RN. kas2 04:02 Patient visited by Yomi Perez PCA. mdr 04:06 Patient visited by Keshav Horne PCA. jmv 04:06 EKG done. (by ED staff). Reviewed by Juancarlos Oliveros DO. jmv 04:22 Patient visited by Regina Medina RN. kas2 04:22 Maintain field IV. Dressing intact. Site clean & dry. Gauge & site: 18 G left forearm. 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 Pulse ox on. NIBP on. kas2 04:28 Regina Medina RN is Primary Nurse. kas2 04:33 Patient visited by Juancarlos Oliveros DO. mm11 05:04 Patient visited by Regina Medina RN. kas2 05:20 Patient visited by Regina Medina RN. kas2 05:22 CT Head Without Contrast Returned. EDMS 06:01 Patient visited by Juancarlos Oliveros DO. mm11 06:25 Patient visited by Yomi Perez PCA. mdr 06:25 Assisted with urinal. mdr 06:33 Patient visited by Regina Medina RN. kas2 06:52 [facility] Payment Agreement was scanned into wywy and attached to record. hs2 06:53 Patient visited by Regina Medina RN. kas2 06:54 Patient name changed from Fercho\S\L\S\Prakash\S\ to Fercho\S\Denny\S\Prakash. EDMS 07:30 EKG done. (by ED staff). Reviewed by Juancarlos Oliveros DO. jrd 07:46 Patient visited by Akila Mace RN. jjr 07:58 CARDIAC MARKER PANEL Sent. jjr 07:58 Discontinued lock intact, bleeding controlled, pressure dressing applied, No jjr redness/swelling at site. redness and swelling above left AC line. 07:59 Inserted saline lock: 20 gauge in right hand and blood collected. jjr 08:05 No procedures done that require assistance. mlb1 08:19 Patient visited by Juancarlos Oliveros DO. mm11 08:55 Patient visited by Juancarlos Oliveros DO. mm11 08:56 Patient visited by Elver River RN. mlb1 09:03 Li Ulloa,RN is Primary Nurse. ead 09:17 Primary Nurse role handed off by Regina Medina RN jjr 09:30 Patient visited by Li Ulloa RN. ead 09:32 Dmitry Fernandez is Hospitalizing Provider. ml 11:10 The patient / caregiver is instructed regarding the plan of care and ED course. ead 22:20 T-Sheet-- Draft Copy was scanned into wywy and attached to record. klr 10/11 14:01 ECG/EKG was scanned into wywy and attached to record. gb 14:02 PCR was scanned into wywy and attached to record. gb Administered Medications: 10/10 05:04 Drug: Meclizine 25 mg [meclizine 12.5 mg tablet (2 tabs)] Route: PO; kas2 07:44 Drug: morphine 4 mg [morphine 4 mg/mL intravenous cartridge (1 mL)] Route: IVP; Site: jjr left antecubital; 08:04 Follow up: BP 154 / 83; Pulse 84 bpm; Resp 16 bpm; Pulse Ox 97% RA; Pain 2/10 mlb1 07:45 Drug: Ondansetron 4 mg [ondansetron HCl 2 mg/mL intravenous solution (2 mL)] Route: jjr IVP; Site: left antecubital; 07:45 Drug: vancomycin (loading dose for pt. wt. >= 80kg) 2000 mg [vancomycin 500 mg jjr intravenous solution] Route: IVPB; Site: left antecubital; 09:49 Follow up: Response: No Adverse Reaction; IV Status: Completed infusion ead Order Results: Lab Order: Basic Metabolic Profile; SPEC'M 10/10/16 04:21 Test: GLUCOSE, FASTING; Value: 155; Range: 70-105; Abnormal: Above high normal; Units: MG/DL; Status: F Test: BLOOD UREA NITROGEN; Value: 14; Range: 7-18; Units: MG/DL; Status: F Test: CREATININE FOR GFR; Value: 1.03; Range: 0.70-1.30; Units: MG/DL; Status: F Test: GLOMERULAR FILTRATION RATE; Value: > 60.0; Range: >56; Status: F Test: SODIUM LEVEL; Value: 138; Range: 136-145; Units: MEQ/L; Status: F Test: POTASSIUM SERUM; Value: 3.5; Range: 3.5-5.1; Units: MEQ/L; Status: F Test: CHLORIDE LEVEL; Value: 101; Range: 98-107; Units: MEQ/L; Status: F Test: CARBON DIOXIDE LEVEL; Value: 31; Range: 21-32; Units: MEQ/L; Status: F Test: ANION GAP; Value: 6; Range: 8-16; Abnormal: Below low normal; Units: MEQ/L; Status: F Test: CALCIUM LEVEL; Value: 9.2; Range: 8.5-10.1; Units: MG/DL; Status: F Test Note: ; Units are mL/min/1.73 m2 Chronic Kidney Disease Staging per NKF: Stage I & II GFR >=60 Normal to Mildly Decreased Stage III GFR 30-59 Moderately Decreased Stage IV GFR 15-29 Severely Decreased Stage V GFR <15 Very Little GFR Left ESRD GFR <15 on SAW SUPERINTENDENT Lab Order: CBC with Diff; SPEC'M 10/10/16 04:21 Test: WHITE BLOOD COUNT; Value: 6.5; Range: 4.0-10.0; Units: K/mm3; Status: F Test: RED BLOOD COUNT; Value: 6.03; Range: 4.30-6.10; Units: M/mm3; Status: F Test: HEMOGLOBIN; Value: 17.5; Range: 14.0-18.0; Units: g/dl; Status: F Test: HEMATOCRIT; Value: 52.2; Range: 42.0-52.0; Abnormal: Above high normal; Units: %; Status: F Test: MEAN CORPUSCULAR VOLUME; Value: 86.5; Range: 80.0-96.0; Units: fl; Status: F Test: MEAN CORPUSCULAR HEMOGLOBIN; Value: 29.0; Range: 27.0-33.0; Units: pg; Status: F Test: MEAN CORPUSCULAR HGB CONC; Value: 33.5; Range: 32.0-36.5; Units: g/dl; Status: F Test: RED CELL DISTRIBUTION WIDTH; Value: 12.4; Range: 11.5-14.5; Units: %; Status: F Test: PLATELET COUNT, AUTOMATED; Value: 302; Range: 150-450; Units: k/mm3; Status: F Test: NEUTROPHILS %; Value: 62.9; Range: 36.0-66.0; Units: %; Status: F Test: LYMPH %; Value: 24.5; Range: 24.0-44.0; Units: %; Status: F Test: MONO %; Value: 5.5; Range: 0.0-5.0; Abnormal: Above high normal; Units: %; Status: F Test: EOS %; Value: 3.8; Range: 0.0-3.0; Abnormal: Above high normal; Units: %; Status: F Test: BASO %; Value: 0.5; Range: 0.0-1.0; Units: %; Status: F Test: LARGE UNSTAINED CELL %; Value: 2.8; Range: 0.0-4.0; Units: %; Status: F Test: NEUTROPHILS #; Value: 4.1; Range: 1.8-7.7; Units: K/mm3; Status: F Test: LYMPH #; Value: 1.6; Range: 1.5-4.5; Units: K/mm3; Status: F Test: MONO #; Value: 0.4; Range: 0.0-0.8; Units: K/mm3; Status: F Test: EOS #; Value: 0.2; Range: 0.0-0.50; Units: K/mm3; Status: F Test: BASO #; Value: 0.0; Range: 0.0-0.2; Units: K/mm3; Status: F Test: LARGE UNSTAINED CELL #; Value: 0.2; Range: 0.0-0.4; Units: K/mm3; Status: F Lab Order: Cardiac Injury Profile; SPEC'M 10/10/16 04:21 Test: CPK CREATINE PHOSPHOKINASE; Value: 86; Range: 39-308; Units: U/L; Status: F Test: CK-MB VALUE MASS; Value: 1.7; Range: 0.0-3.6; Units: NG/ML; Status: F Test: MB/CK RELATIVE INDEX; Value: 1.97; Range: < OR =4; Status: F Test Note: ; DIAGNOSIS CRITERIA MMB ng/ml Relative Index (RI) NON-AMI < or = 5 N/A [place] > 5 < or = 4 AMI > 5 > 4 Lab Order: Troponin; [facility] 04:21 Test: TROPONIN I; Value: < 0.02; Range: < 0.10; Units: NG/ML; Status: F Test Note: ; Troponin I Reference Interval for [employer] LOCI: 99th Percentile= 0.00-0.045 ng/ml Risk Stratification: <= 0.10 ng/ml Decreased Risk for Adverse Clinical Events. 0.10-1.50 ng/ml Increased Risk for Adverse Clinical Events. Evaluation of additional criterion and/or repeat testing in 2-6 hours is suggested to rule out myocardial damage. >= 1.50 ng/ml Indicative of Myocardial Injury. Lab Order: CARDIAC MARKER PANEL; [facility] 07:57 Test: CPK CREATINE PHOSPHOKINASE; Value: 84; Range: 39-308; Units: U/L; Status: F Test: CK-MB VALUE MASS; Value: 2.1; Range: 0.0-3.6; Units: NG/ML; Status: F Test: MB/CK RELATIVE INDEX; Value: 2.50; Range: < OR =4; Status: F Test: TROPONIN I; Value: < 0.02; Range: < 0.10; Units: NG/ML; Status: F Test Note: ; DIAGNOSIS CRITERIA MMB ng/ml Relative Index (RI) NON-AMI < or = 5 N/A [place]ONE > 5 < or = 4 AMI > 5 > 4 Lab Order: THYROID STIMULATING HORMONE; SPEC10/10/16 07:57 Test: THYROID STIMULATING HORMONE; Value: 0.787; Range: 0.358-3.740; Units: uIU/ML; Status: F Radiology Order: CT Head Without Contrast Test: CT Head Without Contrast REASON FOR EXAMINATION: dizziness; ; CLINICAL HISTORY: Dizzy.; TECHNIQUE: Multiple axial brain CT scan sections were obtained from base to vertex without contrast a; dministration.; COMMENTS:; The study shows normal configuration of sella turcica. There are no intra or extra-axial collections.; There is no mass effect or midline shift. There is no evidence of hematoma formation. No hydrocephal; us is present. No abnormal calcifications are noted.; No significant abnormalities are seen either in the posterior fossa or supratentorial compartment.; The sinuses are patent. Right mastoid air cells are noted compatible with mastoiditis.; IMPRESSION:; No evidence of acute intracranial pathology.; Right mastoiditis.; Thank you for your kind referral of this patient.; ; Outcome: 09:32 Decision to Hospitalize by Provider. 11:10 Admission hand-off: Report Faxed Fax receipt verified by DIANNE Traore on PCU. Property ead :Personal belongings accompany Pt. 11:10 Discharge Assessment: Patient awake and alert. obeys commands, Oriented to person, ead place and time. patient administered narcotics - yes. Patient was admitted to the hospital or transferred to another facility. The following High Risk Discharge criteria are identified: None. Admitted to PCU accompanied by nurse, accompanied by tech, via stretcher, on monitor, with chart. Condition: stable. CT Study completed. 11:27 Patient left the ED. ead Signatures: Dispatcher [employer] EDPeng Barriga MD MD Murphy, Ivy, Reg Reg gb Elver River RN RN mlb1 Juancarlos Oliveros, DO DO mm11 Akila Mace, RN Li Sarabia RN RN Jazlyn Chun, Cvt Tech Unit jlm Unruly Bella, PIPE FITTER [employer] PIPE FITTER [employer] Yomi Hoffman, PIPE FITTER [employer] PIPE [employer]TER [employer] Camilla Taylor, Reg Reg hs2 Regina MeidnaRN RN Lois Arshad Jose, PIPE FITTER [employer] PIPE FITTER [employer] jmv Corrections: (The following items were deleted from the chart) 08:04 07:59 Pain 2/10 Adult jjr mlb1 Chart Complete MTDD
--- NOTE | 2016-10-12 12:28 | EDDOCDS ---
Physician Documentation [facility] Name: Fercho Prakash Age: 55 yrs Sex: Male : 1960 Arrival Date: 10/10/2016 Time: 03:51 Bed 12 Private MD: Fab Basilio Disposition: 10/10/16 09:32 Hospitalization ordered by Dmitry Fernandez for Inpatient Admission. Preliminary diagnosis are Chest pain, unspecified, Acute mastoiditis, Hypertension secondary to other renal disorders. - Bed requested for PCU. - Status is Inpatient Admission. ead - Condition is Stable. - Problem is new. - Symptoms are unchanged. Historical: - Allergies: clonidine; - Home Meds: 1. aspirin 81 mg Oral tab 1 tab once daily 2. chlorthalidone 25 mg Oral tab 1 tab once daily 3. spironolactone 25 mg Oral tab 1 tab once daily 4. losartan 100 mg oral tab 1 tab once daily - PMHx: Hypertension; - PSHx: none; - Social history: Smoking status: Patient states was never smoker of tobacco. No barriers to communication noted, The patient speaks fluent Sammarinese. - Family history: Not pertinent. - : The pt / caregiver states he / she is not on anticoagulants. Home medication list is obtained from the patient. - Exposure Risk Screening:: None identified. Vital Signs: 10/10 03:58 BP 162 / 98 (auto/); kas2 03:59 Pulse Ox 97% ; kas2 04:02 BP 162 / 98; Pulse 112; Resp 18; Temp 97.2(O); Pulse Ox 98% on R/A; Weight 130.63 kg / mdr 287.99 lbs (R); Height 6 ft. 0 in. (182.88 cm) (R); Pain 7/10; 04:19 BP 159 / 86 (auto/); kas2 04:19 Pulse 86 MON; Pulse Ox 98% ; kas2 04:34 BP 164 / 83 (auto/); kas2 04:34 Pulse 84 MON; Pulse Ox 97% ; kas2 04:49 BP 162 / 83 (auto/); kas2 04:49 Pulse 80 MON; Pulse Ox 98% ; kas2 05:04 BP 162 / 85 (auto/); kas2 05:04 Pulse 84 MON; Pulse Ox 98% ; kas2 05:19 BP 146 / 82 (auto/); kas2 05:19 Pulse 74 MON; Pulse Ox 98% ; kas2 05:34 BP 149 / 78 (auto/); kas2 05:34 Pulse 80 MON; Pulse Ox 98% ; kas2 05:49 BP 166 / 85 (auto/); kas2 05:49 Pulse 74 MON; Pulse Ox 95% ; kas2 06:04 BP 152 / 83 (auto/); kas2 06:04 Pulse 76 MON; Pulse Ox 99% ; kas2 06:19 BP 159 / 96 (auto/); kas2 06:19 Pulse 84 MON; Pulse Ox 98% ; kas2 06:33 Resp 18; Temp 98.1(O); Pulse Ox 95% ; Pain 0/10; kas2 06:53 Resp 18; Temp 98.2(O); Pain 0/10; kas2 07:04 BP 174 / 87 (auto/); jjr 07:04 Pulse 76 MON; Resp 18; Pulse Ox 98% on R/A; jjr 07:56 BP 159 / 82 (auto/); jjr 07:56 Pulse 84 MON; Resp 18; Pulse Ox 98% on R/A; jjr 08:04 BP 154 / 83; Pulse 84; Resp 16; Pulse Ox 97% on R/A; Pain 2/10; mlb1 09:02 BP 149 / 86 (auto/); ead 09:02 Pulse 74 MON; Pulse Ox 96% ; ead 09:17 BP 137 / 81 (auto/); ead 09:30 Pulse 70 MON; Resp 16; Pulse Ox 98% on R/A; ead 10:47 BP 131 / 89 (auto/); Pulse 70; Resp 16; Temp 98.7(TE); Pulse Ox 96% on R/A; Pain 0/10; ead 11:02 BP 127 / 84 (auto/); ead 11:04 Pulse 74 MON; Resp 16; Temp 98.7; Pulse Ox 97% on R/A; ead 04:02 Body Mass Index 39.06 (130.63 kg, 182.88 cm) mdr MDM: 03:55 ECG WITH READING ER PHYS+CARDIAG ordered. EDMS 04:34 Quarry Manager/Pulse Ox/q 30 min VS ordered. mm11 04:34 IV Saline Lock ordered. mm11 04:34 Rhythm Strip to chart ordered. mm11 04:34 Undress patient appropriately for examination ordered. mm11 04:35 Basic Metabolic Profile Ordered. EDMS 04:35 CBC with Diff Ordered. EDMS 04:35 Cardiac Injury Profile Ordered. EDMS 04:35 Troponin Ordered. EDMS 04:36 Chest, 2 View (pa\E\lat) Ordered. EDMS 04:36 CT Head Without Contrast Ordered. EDMS 04:42 Meclizine 25 mg PO once ordered. mm11 05:02 Basic Metabolic Profile Reviewed. mm11 05:02 CBC with Diff Reviewed. mm11 05:02 Cardiac Injury Profile Reviewed. mm11 05:02 Troponin Reviewed. mm11 06:52 Financial registration complete. hs2 06:52 [facility] Payment Agreement was scanned into [employer] and attached to record. hs2 06:55 CT Head Without Contrast Reviewed. mm11 07:15 morphine 4 mg IVP every 30 minutes; Document pain score/vitals after each dose (Hold if mm11 SBP < 90mmHg) x2 ordered. 07:15 Redraw CIP &Troponin (put time in details section) ordered. mm11 07:15 Repeat EKG (put time details section) ordered. mm11 07:15 Ondansetron 4 mg IVP once ordered. mm11 07:16 vancomycin (loading dose for pt. wt. >= 80kg) 2000 mg IVPB once ordered. mm11 07:18 BED REQUEST+ADM ordered. EDMS 07:25 Redraw CIP &Troponin (put time in details section) complete. deg 07:25 Repeat EKG (put time details section) complete. deg 07:25 ECG WITH READING ER PHYS ordered. EDMS 07:26 CARDIAC MARKER PANEL Ordered. EDMS 08:42 CARDIAC MARKER PANEL Reviewed. mm11 10:32 Admission / Observation Status ordered. EDMS 10:32 2 GRAM SODIUM DIET ordered. EDMS 10:36 THYROID STIMULATING HORMONE Ordered. EDMS 22:20 T-Sheet-- Draft Copy was scanned into [employer] and attached to record. klr 10/11 14:01 ECG/EKG was scanned into [employer] and attached to record. gb 14:02 PCR was scanned into [employer] and attached to record. gb Administered Medications: 10/10 05:04 Drug: Meclizine 25 mg [meclizine 12.5 mg tablet (2 tabs)] Route: PO; kas2 07:44 Drug: morphine 4 mg [morphine 4 mg/mL intravenous cartridge (1 mL)] Route: IVP; Site: jjr left antecubital; 08:04 Follow up: BP 154 / 83; Pulse 84 bpm; Resp 16 bpm; Pulse Ox 97% RA; Pain 2/10 mlb1 07:45 Drug: Ondansetron 4 mg [ondansetron HCl 2 mg/mL intravenous solution (2 mL)] Route: jjr IVP; Site: left antecubital; 07:45 Drug: vancomycin (loading dose for pt. wt. >= 80kg) 2000 mg [vancomycin 500 mg jjr intravenous solution] Route: IVPB; Site: left antecubital; 09:49 Follow up: Response: No Adverse Reaction; IV Status: Completed infusion ead Signatures: Dispatcher [employer] EDMS Peng Clark MD MD ml Murray, Denise, Gastroenterology Teacher Unit deg Ivy Arrington, Reg Reg gb Juancarlos Oliveros, DO mm11 Li UlloaRN RN ead Camilla Pillai, Reg Reg hs2 Regina Medina RN RN kas2 Lois Mata Michael B RN mlb1 Akila Mace RN jjr The chart was reviewed and I authenticate all verbal orders and agree with the evaluation and treatment provided.Corrections: (The following items were deleted from the chart) 10:36 10:31 THYROID STIMULATING HORMONE ordered. [facility] EDMT Attachments: 06:52 [facility] Payment Agreement hs2 22:20 T-Sheet-- Draft Copy [facility] 10/11 14:01 ECG/EKG gb Chart Complete MTDD
--- NOTE | 2016-10-12 12:28 | EDDOCDS ---
Physician Documentation [facility] Name: Fercho Prakash Age: 55 yrs Sex: Male : 1960 Arrival Date: 10/10/2016 Time: 03:51 Bed 12 Private MD: Fab Basilio Disposition: 10/10/16 09:32 Hospitalization ordered by Dmitry Fernandez for Inpatient Admission. Preliminary diagnosis are Chest pain, unspecified, Acute mastoiditis, Hypertension secondary to other renal disorders. - Bed requested for PCU. - Status is Inpatient Admission. ead - Condition is Stable. - Problem is new. - Symptoms are unchanged. Historical: - Allergies: clonidine; - Home Meds: 1. aspirin 81 mg Oral tab 1 tab once daily 2. chlorthalidone 25 mg Oral tab 1 tab once daily 3. spironolactone 25 mg Oral tab 1 tab once daily 4. losartan 100 mg oral tab 1 tab once daily - PMHx: Hypertension; - PSHx: none; - Social history: Smoking status: Patient states was never smoker of tobacco. No barriers to communication noted, The patient speaks fluent Togolese. - Family history: Not pertinent. - : The pt / caregiver states he / she is not on anticoagulants. Home medication list is obtained from the patient. - Exposure Risk Screening:: None identified. Vital Signs: 10/10 03:58 BP 162 / 98 (auto/); kas2 03:59 Pulse Ox 97% ; kas2 04:02 BP 162 / 98; Pulse 112; Resp 18; Temp 97.2(O); Pulse Ox 98% on R/A; Weight 130.63 kg / mdr 287.99 lbs (R); Height 6 ft. 0 in. (182.88 cm) (R); Pain 7/10; 04:19 BP 159 / 86 (auto/); kas2 04:19 Pulse 86 MON; Pulse Ox 98% ; kas2 04:34 BP 164 / 83 (auto/); kas2 04:34 Pulse 84 MON; Pulse Ox 97% ; kas2 04:49 BP 162 / 83 (auto/); kas2 04:49 Pulse 80 MON; Pulse Ox 98% ; kas2 05:04 BP 162 / 85 (auto/); kas2 05:04 Pulse 84 MON; Pulse Ox 98% ; kas2 05:19 BP 146 / 82 (auto/); kas2 05:19 Pulse 74 MON; Pulse Ox 98% ; kas2 05:34 BP 149 / 78 (auto/); kas2 05:34 Pulse 80 MON; Pulse Ox 98% ; kas2 05:49 BP 166 / 85 (auto/); kas2 05:49 Pulse 74 MON; Pulse Ox 95% ; kas2 06:04 BP 152 / 83 (auto/); kas2 06:04 Pulse 76 MON; Pulse Ox 99% ; kas2 06:19 BP 159 / 96 (auto/); kas2 06:19 Pulse 84 MON; Pulse Ox 98% ; kas2 06:33 Resp 18; Temp 98.1(O); Pulse Ox 95% ; Pain 0/10; kas2 06:53 Resp 18; Temp 98.2(O); Pain 0/10; kas2 07:04 BP 174 / 87 (auto/); jjr 07:04 Pulse 76 MON; Resp 18; Pulse Ox 98% on R/A; jjr 07:56 BP 159 / 82 (auto/); jjr 07:56 Pulse 84 MON; Resp 18; Pulse Ox 98% on R/A; jjr 08:04 BP 154 / 83; Pulse 84; Resp 16; Pulse Ox 97% on R/A; Pain 2/10; mlb1 09:02 BP 149 / 86 (auto/); ead 09:02 Pulse 74 MON; Pulse Ox 96% ; ead 09:17 BP 137 / 81 (auto/); ead 09:30 Pulse 70 MON; Resp 16; Pulse Ox 98% on R/A; ead 10:47 BP 131 / 89 (auto/); Pulse 70; Resp 16; Temp 98.7(TE); Pulse Ox 96% on R/A; Pain 0/10; ead 11:02 BP 127 / 84 (auto/); ead 11:04 Pulse 74 MON; Resp 16; Temp 98.7; Pulse Ox 97% on R/A; ead 04:02 Body Mass Index 39.06 (130.63 kg, 182.88 cm) mdr MDM: 03:55 ECG WITH READING ER PHYS+CARDIAG ordered. EDMS 04:34 Alteration Manager/Pulse Ox/q 30 min VS ordered. mm11 04:34 IV Saline Lock ordered. mm11 04:34 Rhythm Strip to chart ordered. mm11 04:34 Undress patient appropriately for examination ordered. mm11 04:35 Basic Metabolic Profile Ordered. EDMS 04:35 CBC with Diff Ordered. EDMS 04:35 Cardiac Injury Profile Ordered. EDMS 04:35 Troponin Ordered. EDMS 04:36 Chest, 2 View (pa\E\lat) Ordered. EDMS 04:36 CT Head Without Contrast Ordered. EDMS 04:42 Meclizine 25 mg PO once ordered. mm11 05:02 Basic Metabolic Profile Reviewed. mm11 05:02 CBC with Diff Reviewed. mm11 05:02 Cardiac Injury Profile Reviewed. mm11 05:02 Troponin Reviewed. mm11 06:52 Financial registration complete. hs2 06:52 [facility] Payment Agreement was scanned into [employer] and attached to record. hs2 06:55 CT Head Without Contrast Reviewed. mm11 07:15 morphine 4 mg IVP every 30 minutes; Document pain score/vitals after each dose (Hold if mm11 SBP < 90mmHg) x2 ordered. 07:15 Redraw CIP &Troponin (put time in details section) ordered. mm11 07:15 Repeat EKG (put time details section) ordered. mm11 07:15 Ondansetron 4 mg IVP once ordered. mm11 07:16 vancomycin (loading dose for pt. wt. >= 80kg) 2000 mg IVPB once ordered. mm11 07:18 BED REQUEST+ADM ordered. EDMS 07:25 Redraw CIP &Troponin (put time in details section) complete. deg 07:25 Repeat EKG (put time details section) complete. deg 07:25 ECG WITH READING ER PHYS ordered. EDMS 07:26 CARDIAC MARKER PANEL Ordered. EDMS 08:42 CARDIAC MARKER PANEL Reviewed. mm11 10:32 Admission / Observation Status ordered. EDMS 10:32 2 GRAM SODIUM DIET ordered. EDMS 10:36 THYROID STIMULATING HORMONE Ordered. EDMS 22:20 T-Sheet-- Draft Copy was scanned into [employer] and attached to record. klr 10/11 14:01 ECG/EKG was scanned into [employer] and attached to record. gb 14:02 PCR was scanned into [employer] and attached to record. gb Administered Medications: 10/10 05:04 Drug: Meclizine 25 mg [meclizine 12.5 mg tablet (2 tabs)] Route: PO; kas2 07:44 Drug: morphine 4 mg [morphine 4 mg/mL intravenous cartridge (1 mL)] Route: IVP; Site: jjr left antecubital; 08:04 Follow up: BP 154 / 83; Pulse 84 bpm; Resp 16 bpm; Pulse Ox 97% RA; Pain 2/10 mlb1 07:45 Drug: Ondansetron 4 mg [ondansetron HCl 2 mg/mL intravenous solution (2 mL)] Route: jjr IVP; Site: left antecubital; 07:45 Drug: vancomycin (loading dose for pt. wt. >= 80kg) 2000 mg [vancomycin 500 mg jjr intravenous solution] Route: IVPB; Site: left antecubital; 09:49 Follow up: Response: No Adverse Reaction; IV Status: Completed infusion ead Signatures: Dispatcher [employer] EDMS Peng Clark MD MD ml Murray, Denise, Motorcycle Repairer Unit deg Ivy Arrington, Reg Reg gb Juancarlos Oliveros, DO mm11 Li UlloaRN RN ead Camilla Pillai, Reg Reg hs2 Regina Medina RN RN kas2 Lois Mata Michael B RN mlb1 Akila Mace RN jjr The chart was reviewed and I authenticate all verbal orders and agree with the evaluation and treatment provided.Corrections: (The following items were deleted from the chart) 10:36 10:31 THYROID STIMULATING HORMONE ordered. [facility] Attachments: 06:52 [facility] Payment Agreement hs2 22:20 T-Sheet-- Draft Copy [facility] 10/11 14:01 ECG/EKG gb Chart Complete MTDD
== END 2016-10-11 12:35 | disposition home or self-care (01) ==
LOC: M ED 03:51 → M ED INP 10:23 → M PCU 11:30
PROVIDERS: ADMIT Internal Medicine; ATTEND Internal Medicine
DX: I10 Essential (primary) hypertension (principal); H70.91 Unspecified mastoiditis, right ear; I25.2 Old myocardial infarction; I25.10 Atherosclerotic heart disease of native coronary artery without angina pectoris; Z79.82 Long term (current) use of aspirin; Z79.899 Other long term (current) drug therapy
CPT/HCPCS: 36415; 70450; 71020; 80048; 82550; 82553; 84443; 85025; 85027; 93005; 93041; 96365; 96366; 96375; 99285; J0696; J2405; J3370

== ENCOUNTER → 2016-10-14 | Outpatient (CLI) | payer OTHER ==
[~2016-10-14] MED LIST: ASPI81TA7 PO; AUGM875T27 PO; CHLO125TA PO; LOSA100T36 PO; SPIR25TA2 PO
[2016-10-14 16:47] LABS: BASO % 0.6 % (0.0-1.0); EOS # 0.1 K/mm3 (0.0-0.50); EOS % 1.1 % (0.0-3.0); LARGE UNSTAINED CELL # 0.3 K/mm3 (0.0-0.4); LARGE UNSTAINED CELL % 3.6 % (0.0-4.0); LYMPH # 1.1 K/mm3 (1.5-4.5); LYMPH % 13.8 % (24.0-44.0); MEAN CORPUSCULAR HEMOGLOBIN 28.7 pg (27.0-33.0); MEAN CORPUSCULAR VOLUME 84.4 fl (80.0-96.0); MONO # 0.6 K/mm3 (0.0-0.8); MONO % 7.8 % (0.0-5.0); NEUTROPHILS # 5.8 K/mm3 (1.8-7.7); NEUTROPHILS % 73.2 % (36.0-66.0); PLATELET COUNT, AUTOMATED 364 k/mm3 (150-450); RED CELL DISTRIBUTION WIDTH 12.3 % (11.5-14.5); WHITE BLOOD COUNT 7.9 K/mm3 (4.0-10.0)
[2016-10-14 17:12] LABS: ANION GAP 8 MEQ/L (8-16); BLOOD UREA NITROGEN 16 MG/DL (7-18); CALCIUM LEVEL 9.3 MG/DL (8.5-10.1); CARBON DIOXIDE LEVEL 27 MEQ/L (21-32); CHLORIDE LEVEL 100 MEQ/L (98-107); CREATININE FOR GFR 0.98 MG/DL (0.70-1.30); GLOMERULAR FILTRATION RATE > 60.0 (>56); GLUCOSE, FASTING 88 MG/DL (70-105); POTASSIUM SERUM 3.7 MEQ/L (3.5-5.1); SODIUM LEVEL 135 MEQ/L (136-145)
== END ==
LOC: M LAB 15:26
PROVIDERS: ATTEND Student in an Organized Health Care Education/Training Program
DX: H70.91 Unspecified mastoiditis, right ear (principal); R55 Syncope and collapse; I16.0 Hypertensive urgency

== ENCOUNTER → 2016-10-15 | Outpatient (REF) | payer OTHER | LOC: M SFHCPLAZ 16:11 | PROVIDERS: ATTEND Student in an Organized Health Care Education/Training Program | DX: H70.91 Unspecified mastoiditis, right ear (principal); R55 Syncope and collapse; I16.0 Hypertensive urgency ==

== ENCOUNTER → 2016-10-15 | Outpatient (CLI) | payer OTHER ==
--- NOTE | 2016-10-15 17:46 | REP ---
MR BRAIN WITHOUT CONTRAST: HISTORY: Headache. COMPARISON: CT 10/10/2016 Several punctate areas of increased signal intensity on T2-weighted images are present in the subcortical white matter. This represents small vessel ischemic disease. There is no intraparenchymal hemorrhage, infarct, mass or midline shift. The ventricular system is normal in appearance. There is no extracerebral collection. Mucosal thickening is present in the right mastoid air cells and right maxillary sinus. IMPRESSION: Minimal small vessel ischemic disease. Subarachnoid and intraventricular hemorrhage cannot be excluded. Signed by Dmitry Crespo MD 10/18/2016 08:16 A
== END ==
LOC: M RAD 16:05
PROVIDERS: ATTEND Student in an Organized Health Care Education/Training Program
DX: R51 Headache (principal)

== ENCOUNTER → 2016-10-22 | Outpatient (CLI) | payer OTHER ==
--- NOTE | 2016-10-22 10:46 | REP ---
Clinical: Hypertension and chronic medical renal disease. Technique: Snowden scale and color Doppler evaluation of the kidneys and renal vasculature using curved array transducer. Findings: The kidneys are essentially normal in contour size and echogenicity and reniform shape without hydronephrosis, nephrolithiasis, significant cystic cystic or renal mass lesion. Right kidney measures 13.4 x 4.7 x 6.0 cm . Left kidney measures 13.1 x 5.9 x 6.2 cm and there is a 1.6 cm central parapelvic cyst versus a focally dilated candy. Bladder is incompletely distended and grossly normal by current evaluation. Color Doppler evaluation of the renal vasculature demonstrates normal arterial wave patterns, velocities, renal aortic ratios, resistive indices and the acceleration time. No sonographic evidence for renal arterial stenosis noted. Renal vein is patent. Right Kidney: Peak arterial velocity: 96.6 cm/sec . Renal aortic ratio: 0.98 . Resistive indices: 0.66 - 0.72 . Acceleration times: 0.030 - 0.047 . Left kidney: Peak arterial velocity: 111.7 cm/sec . Renal aortic ratio: 1.2 . Resistive indices: 0.58 - 0.68 . Acceleration times: 0.05 - 0.061 . Impression: Essentially normal appearance of the bilateral kidneys by ultrasound. No sonographic evidence to suggest renal arterial stenosis. Signed by Raymond Slaughter MD 10/22/2016 10:37 A
== END ==
LOC: M RAD 08:41
PROVIDERS: ATTEND Student in an Organized Health Care Education/Training Program
DX: I16.0 Hypertensive urgency (principal)

== ENCOUNTER → 2016-11-10 | Outpatient (CLI) | payer OTHER ==
--- NOTE | 2016-11-10 18:57 | REP ---
CT IACS WITHOUT CONTRAST: 11/10/2016. COMPARISON: MRI brain 10/15/2016, CT brain 10/10/2016. CLINICAL HISTORY: Right mastoiditis on the two previous studies. Evaluate after 2 weeks antibiotic therapy. TECHNIQUE: Thin section axial and coronal images at 1 mm slice thickness through the temporal bones performed. FINDINGS: There is mastoiditis on the right inferiorly and laterally. The more superior cells are patent. The scutum and ossicles are intact. Roof of the attic is preserved and there is no dehiscence. Degree of opacification quite similar to the previous CT and MRI last month. No destructive lesions involving the middle ear or inner ear and the IACs, semicircular canals and EAC's were all intact. The ossicles, scutum and roof of the attic intact bilaterally. No other findings. IMPRESSION:1. Right-sided mastoiditis, appearance unchanged from the MRI and CT examinations last month. No middle or inner ear abnormalities. Left-sided findings unremarkable. Signed by Mitchell Gamboa MD 11/10/2016 07:16 P
== END ==
LOC: M RAD 16:05
PROVIDERS: ATTEND Otolaryngology
DX: H70.891 Other mastoiditis and related conditions, right ear (principal)

== ENCOUNTER → 2017-01-06 | Day surgery (SDC) | payer OTHER ==
[~2017-01-06] VITALS: Ht 182.9 cm; Wt 126.1 kg
[~2017-01-06] MED LIST changes: +CIPRODEX OTIC SUSP 7.5ML As Ordered ONE; +LIDOCAINE 2% INJ 100 MG/5 ML SDV (FOR ANES.) As Ordered ONE; +LR 1,000 ML IV ONE; +LR 1,000 ML IV SCH; +METOCLOPRAMIDE INJ 10MG/2ML VIAL (J2765) IV PRN; +MIDAZOLAM INJ 2 MG/2 ML VIAL (J2250) As Ordered ONE; +ONDANSETRON 4MG/2ML VIAL (J2405) As Ordered ONE; +ONDANSETRON 4MG/2ML VIAL (J2405) IV PRN; +PROPOFOL 200 MG/20 ML VIAL As Ordered ONE; +dexameTHASONE 4 MG/ML 1ML VIAL (J1100) As Ordered ONE; +fentaNYL 100 MCG/2 ML INJECTION (J3010) As Ordered ONE; +fentaNYL 100 MCG/2 ML INJECTION (J3010) IV PRN
[2017-01-06] MEDS: PERCOCET 5MG/325MG TAB PO PRN ×2 (18:24→18:56)
[2017-01-06 19:40] VITALS: BP 151/73
--- NOTE | 2017-02-10 09:17 | RO ---
DATE OF PROCEDURE: 01/06/2017 PREPROCEDURE DIAGNOSES: Right eustachian dysfunction, right mastoiditis, and dizziness. POSTPROCEDURE DIAGNOSES: Right eustachian dysfunction, right mastoiditis, and dizziness. PROCEDURE PERFORMED: Right tympanostomy. SURGEON: Loc Sauer MD GUIDEMAN: ANESTHESIA: General. CLINICAL PREAMBLE: This 56-year-old man was noted to have right mastoiditis. He has been treated with antibiotic without resolution of the symptoms, including dizziness. Management options, including right tympanostomy, have been discussed. The patient understood and consented to the procedure. Operating room (OR) narration: The patient was identified in preoperative holding and brought to the operating room in stable condition. He was placed in supine position on the operating table. The patient received general anesthesia, followed by mask ventilation. The patient was prepped and draped in the usual fashion for the procedure. The patient was turned to the left side to expose the right ear. Ear speculum was inserted, and cerumen was debrided. The right tympanic membrane was visualized and found to be intact and mildly retracted. Myringotomy incision was made over the anterior-inferior quadrant of the tympanic membrane. The right middle ear cleft was then suctioned clear. A 7 mm straight shank tympanostomy tube was inserted. Ciprodex drops were instilled, and a cotton ball was used to occlude the ear canal. At the end of the procedure, sponge and instrument counts were correct. No complication was encountered. Estimated blood loss was nil. General anesthesia was reversed, and the patient was awakened and taken to the recovery room in stable condition. SHERIF
== END | disposition home or self-care (01) ==
LOC: M SDC 11:57
PROVIDERS: ATTEND Otolaryngology
DX: H70.891 Other mastoiditis and related conditions, right ear (principal); R51 Headache; H90.3 Sensorineural hearing loss, bilateral; H93.13 Tinnitus, bilateral; R42 Dizziness and giddiness; H53.30 Unspecified disorder of binocular vision; I10 Essential (primary) hypertension; R07.9 Chest pain, unspecified; I25.2 Old myocardial infarction; Z88.8 Allergy status to other drugs, medicaments and biological substances; Z79.899 Other long term (current) drug therapy; Z79.82 Long term (current) use of aspirin
CPT/HCPCS: 69436; J1100; J2250; J2405; J3010

== ENCOUNTER → 2017-09-14 | Outpatient (REF) | payer OTHER ==
[2017-09-14 12:55] LABS: ANION GAP 5 MEQ/L (8-16); BLOOD UREA NITROGEN 17 MG/DL (7-18); CALCIUM LEVEL 9.4 MG/DL (8.5-10.1); CARBON DIOXIDE LEVEL 33 MEQ/L (21-32); CHLORIDE LEVEL 100 MEQ/L (98-107); CHOLESTEROL LEVEL 192 MG/DL (<200); CHOLESTEROL RISK RATIO 3.147 (<5); CREATININE FOR GFR 0.99 MG/DL (0.70-1.30); GLOMERULAR FILTRATION RATE > 60.0 (>56); GLUCOSE, FASTING 102 MG/DL (70-105); HDL CHOLESTEROL 61 MG/DL (>40); NON-HDL-C 131 MG/DL; POTASSIUM SERUM 4.4 MEQ/L (3.5-5.1); SODIUM LEVEL 138 MEQ/L (136-145); TRIGLYCERIDES LEVEL 170 MG/DL (<150)
[2017-09-15 08:51] LABS: ALBUMIN 4.1 GM/DL (3.2-5.2); ALKALINE PHOSPHATASE 76 U/L (45-117); ALT/SGPT 40 U/L (12-78); AST/SGOT 24 U/L (7-37); BILIRUBIN,DIRECT 0.1 MG/DL (0.0-0.2); BILIRUBIN,TOTAL 0.5 MG/DL (0.2-1.0); TOTAL PROTEIN 8.2 GM/DL (6.4-8.2)
== END ==
LOC: M LABDRWAD 12:22
DX: I25.10 Atherosclerotic heart disease of native coronary artery without angina pectoris (principal); E78.00 Pure hypercholesterolemia, unspecified
CPT/HCPCS: 36415

== ENCOUNTER 2017-12-09 17:41 | Emergency (ER) | payer OTHER | END 2017-12-09 20:36 | disposition home or self-care (01) | LOC: M ED 17:41 | DX: L03.115 Cellulitis of right lower limb (principal); L89.229 Pressure ulcer of left hip, unspecified stage; Z79.899 Other long term (current) drug therapy; Z79.82 Long term (current) use of aspirin; Z88.8 Allergy status to other drugs, medicaments and biological substances | CPT/HCPCS: 99283 ==

== ENCOUNTER → 2017-12-09 | Outpatient (REF) | payer OTHER | LOC: M LAB REF 12:31 | DX: L03.319 Cellulitis of trunk, unspecified (principal) ==

== ENCOUNTER 2018-04-26 12:44 | Emergency (ER) | payer OTHER ==
[2018-04-26 13:23] LABS: BASO # 0.1 10^3/uL (0.0-0.2); BASO % 0.9 % (0.0-1.0); EOS # 0.1 10^3/uL (0.0-0.50); EOS % 0.9 % (0.0-3.0); HEMATOCRIT 45.3 % (42.0-52.0); HEMOGLOBIN 16.1 g/dl (13.5-17.5); IMMATURE GRANULOCYTE % 0.9 % (0-3.0); LYMPH # 1.8 10^3/uL (1.5-4.5); LYMPH % 17.2 % (24.0-44.0); MEAN CORPUSCULAR HGB CONC 35.5 g/dl (32.0-36.5); MEAN CORPUSCULAR VOLUME 87.3 fl (80.0-96.0); MONO # 0.8 10^3/uL (0.0-0.8); MONO % 7.6 % (0.0-5.0); NEUTROPHILS # 7.6 10^3/uL (1.8-7.7); NEUTROPHILS % 72.5 % (36.0-66.0); PLATELET COUNT, AUTOMATED 334 10^3/uL (150-450); RED BLOOD COUNT 5.19 10^6/uL (4.30-6.10); RED CELL DISTRIBUTION WIDTH 12.4 % (11.5-14.5); WHITE BLOOD COUNT 10.4 10^3/uL (4.0-10.0)
[2018-04-26 13:48] LABS: ALBUMIN 3.6 GM/DL (3.2-5.2); ALBUMIN/GLOBULIN RATIO 0.88 (1.00-1.93); ALT/SGPT 47 U/L (12-78); ANION GAP 9 MEQ/L (8-16); AST/SGOT 22 U/L (7-37); BILIRUBIN,DIRECT 0.1 MG/DL (0.0-0.2); BLOOD UREA NITROGEN 16 MG/DL (7-18); C REACTIVE PROTEIN QUANTITATIV 0.48 MG/DL (0.00-0.30); CALCIUM LEVEL 9.2 MG/DL (8.5-10.1); CARBON DIOXIDE LEVEL 29 MEQ/L (21-32); CHLORIDE LEVEL 99 MEQ/L (98-107); CREATININE FOR GFR 1.09 MG/DL (0.70-1.30); GLOMERULAR FILTRATION RATE > 60.0 (>56); GLUCOSE, FASTING 165 MG/DL (70-100); LIPASE 139 U/L (73-393); POTASSIUM SERUM 3.4 MEQ/L (3.5-5.1); SODIUM LEVEL 137 MEQ/L (136-145); TOTAL PROTEIN 7.7 GM/DL (6.4-8.2); TROPONIN I < 0.02 NG/ML (< 0.10)
[2018-04-26 13:49] LABS: INR 1.04; PARTIAL THROMBOPLASTIN TIME 29.2 SECONDS (25.4-37.6); PROTHROMBIN TIME 13.8 SECONDS (12.1-14.4)
[2018-04-26 13:58] LABS: ALKALINE PHOSPHATASE 77 U/L (45-117); BILIRUBIN,TOTAL 0.5 MG/DL (0.2-1.0); CK-MB VALUE MASS 1.1 NG/ML (<3.6); CPK CREATINE PHOSPHOKINASE 96 U/L (39-308); MB/CK RELATIVE INDEX 1.14 (< OR =4); NT-PRO BNP 40 PG/ML (<125)
== END 2018-04-26 17:04 | disposition home or self-care (01) ==
LOC: M ED 12:44
DX: R07.89 Other chest pain (principal); R00.0 Tachycardia, unspecified; I10 Essential (primary) hypertension; R73.03 Prediabetes; F17.200 Nicotine dependence, unspecified, uncomplicated; Z88.8 Allergy status to other drugs, medicaments and biological substances; Z79.899 Other long term (current) drug therapy; Z79.82 Long term (current) use of aspirin
CPT/HCPCS: 71045

== ENCOUNTER → 2018-05-08 | Outpatient (REF) | payer OTHER ==
[2018-05-08 14:45] LABS: ANION GAP 8 MEQ/L (8-16); BLOOD UREA NITROGEN 18 MG/DL (7-18); CALCIUM LEVEL 9.5 MG/DL (8.5-10.1); CARBON DIOXIDE LEVEL 29 MEQ/L (21-32); CHLORIDE LEVEL 102 MEQ/L (98-107); CREATININE FOR GFR 0.85 MG/DL (0.70-1.30); GLOMERULAR FILTRATION RATE > 60.0 (>56); POTASSIUM SERUM 3.8 MEQ/L (3.5-5.1); SODIUM LEVEL 139 MEQ/L (136-145)
[2018-05-08 16:49] LABS: GLUCOSE, FASTING 104 MG/DL (70-100)
[2018-05-09 01:25] LABS: ESTIMATED AVERAGE GLUCOSE 117 MG/DL (60-110); HEMOGLOBIN A1c 5.7 %
== END ==
LOC: M SFHCPLAZ 08:36
DX: Z13.1 Encounter for screening for diabetes mellitus (principal)

== ENCOUNTER 2018-08-21 13:19 | Emergency (ER) | payer OTHER ==
[~2018-08-21] VITALS: Ht 182.9 cm; Wt 136.4 kg
[~2018-08-21 13:19] MED LIST changes: +AMLO5TAB4; +AMOX500T PO; +ASPI1TAB15 PO; -ASPI81TA7 PO; -AUGM875T27 PO; +AUGM875T28 PO; +CHLO25TA PO; -CIPRODEX OTIC SUSP 7.5ML As Ordered ONE; -LIDOCAINE 2% INJ 100 MG/5 ML SDV (FOR ANES.) As Ordered ONE; +LOSA-4 PO; -LOSA100T36 PO; -LR 1,000 ML IV ONE; -LR 1,000 ML IV SCH; -METOCLOPRAMIDE INJ 10MG/2ML VIAL (J2765) IV PRN; -MIDAZOLAM INJ 2 MG/2 ML VIAL (J2250) As Ordered ONE; +NITR0.4S14; +NORC1TAB4 PO; -ONDANSETRON 4MG/2ML VIAL (J2405) As Ordered ONE; -ONDANSETRON 4MG/2ML VIAL (J2405) IV PRN; -PROPOFOL 200 MG/20 ML VIAL As Ordered ONE; +SPIR-10 PO; -SPIR25TA2 PO; -dexameTHASONE 4 MG/ML 1ML VIAL (J1100) As Ordered ONE; -fentaNYL 100 MCG/2 ML INJECTION (J3010) As Ordered ONE; -fentaNYL 100 MCG/2 ML INJECTION (J3010) IV PRN
[2018-08-21] MEDS ORDERED: NS 1,000 ML IV ONE (13:45)
[2018-08-21] MEDS ORDERED: ASPIRIN 81 MG CHEW TABLET PO ONE (13:45)
[2018-08-21 14:02] LABS: BASO # 0.1 10^3/uL (0.0-0.2); BASO % 0.9 % (0.0-1.0); EOS # 0.2 10^3/uL (0.0-0.50); HEMATOCRIT 46.2 % (42.0-52.0); HEMOGLOBIN 16.6 g/dl (13.5-17.5); LYMPH # 2.2 10^3/uL (1.5-4.5); LYMPH % 23.2 % (24.0-44.0); MEAN CORPUSCULAR HEMOGLOBIN 30.9 pg (27.0-33.0); MEAN CORPUSCULAR HGB CONC 35.9 g/dl (32.0-36.5); MONO # 0.8 10^3/uL (0.0-0.8); MONO % 8.3 % (0.0-5.0); NEUTROPHILS % 64.6 % (36.0-66.0); PLATELET COUNT, AUTOMATED 318 10^3/uL (150-450); RED BLOOD COUNT 5.37 10^6/uL (4.30-6.10); WHITE BLOOD COUNT 9.3 10^3/uL (4.0-10.0)
--- NOTE | 2018-08-21 14:06 | REP ---
Clinical: Acute chest pain . Comparison: 07/30/2017 . Technique: PA and lateral. Findings: The mediastinum and cardiac silhouette are normal. The lung andre are clear and without acute consolidation, effusion, or pneumothorax. The skeletal structures are intact and normal. Impression: 1. No acute cardiopulmonary process. Electronically Signed by Raymond Slaughter MD 08/21/2018 01:57 P
[2018-08-21 14:36] LABS: ALBUMIN 3.8 GM/DL (3.2-5.2); ALT/SGPT 55 U/L (12-78); BILIRUBIN,DIRECT 0.2 MG/DL (0.0-0.2); BILIRUBIN,TOTAL 0.6 MG/DL (0.2-1.0); BLOOD UREA NITROGEN 19 MG/DL (7-18); CALCIUM LEVEL 9.1 MG/DL (8.5-10.1); CARBON DIOXIDE LEVEL 27 MEQ/L (21-32); CHLORIDE LEVEL 98 MEQ/L (98-107); CPK CREATINE PHOSPHOKINASE 118 U/L (39-308); CREATININE FOR GFR 0.93 MG/DL (0.70-1.30); GLOMERULAR FILTRATION RATE > 60.0 (>56); GLUCOSE, FASTING 120 MG/DL (70-100); LIPASE 68 U/L (73-393); MB/CK RELATIVE INDEX 1.61 (< OR =4); NT-PRO BNP 34 PG/ML (<125); POTASSIUM SERUM 3.1 MEQ/L (3.5-5.1); SODIUM LEVEL 135 MEQ/L (136-145); TOTAL PROTEIN 7.5 GM/DL (6.4-8.2); TROPONIN I < 0.02 NG/ML (< 0.10)
[2018-08-21] MEDS ORDERED: POTASSIUM CHLORIDE 10 MEQ SR TABLET PO ONE (17:00)
[2018-08-21 18:15] LABS: CPK CREATINE PHOSPHOKINASE 109 U/L (39-308); MB/CK RELATIVE INDEX 1.56 (< OR =4); TROPONIN I < 0.02 NG/ML (< 0.10)
[2018-08-21 19:00] VITALS: BP 136/65
--- NOTE | 2018-08-22 05:52 | ECGEPIP ---
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
--- NOTE | 2018-08-22 06:01 | ECGEPIP ---
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
== END 2018-08-21 19:07 | disposition home or self-care (01) ==
LOC: M ED 13:19
DX: R07.89 Other chest pain (principal); I10 Essential (primary) hypertension; E78.5 Hyperlipidemia, unspecified; F17.210 Nicotine dependence, cigarettes, uncomplicated

== ENCOUNTER 2019-02-05 06:36 | Emergency (ER) | payer OTHER ==
[~2019-02-05] VITALS: Ht 182.9 cm; Wt 140.9 kg
[2019-02-05 06:36] VITALS: BP 173/94
[~2019-02-05 06:36] MED LIST changes: -AMLO5TAB4; +AMLO5TAB6; -LOSA-4 PO; +LOSA100T50 PO; -NORC1TAB4 PO; +NORC1TAB7 PO
[2019-02-05] MEDS ORDERED: ATOR1TAB21 (06:41)
[2019-02-05] MEDS ORDERED: AMOX500C PO (07:09)
[2019-02-05] MEDS ORDERED: MUCI1TAB16 PO (07:09)
== END 2019-02-05 07:20 | disposition home or self-care (01) ==
LOC: M ED 06:36
DX: J02.0 Streptococcal pharyngitis (principal); I10 Essential (primary) hypertension; E78.5 Hyperlipidemia, unspecified; R51 Headache; Z79.82 Long term (current) use of aspirin; Z88.8 Allergy status to other drugs, medicaments and biological substances; F17.210 Nicotine dependence, cigarettes, uncomplicated

== ENCOUNTER → 2019-02-06 | Outpatient (REF) | payer OTHER ==
[~2019-02-06] MED LIST changes: +AMOX500C PO; +ATOR1TAB21; +MUCI1TAB16 PO
[2019-02-06 14:07] LABS: BLOOD UREA NITROGEN 17 MG/DL (7-18); CALCIUM LEVEL 8.8 MG/DL (8.5-10.1); CARBON DIOXIDE LEVEL 28 MEQ/L (21-32); CHLORIDE LEVEL 101 MEQ/L (98-107); CREATININE FOR GFR 0.92 MG/DL (0.70-1.30); GLOMERULAR FILTRATION RATE > 60.0 (>56); GLUCOSE, FASTING 148 MG/DL (70-100); POTASSIUM SERUM 3.6 MEQ/L (3.5-5.1); SODIUM LEVEL 139 MEQ/L (136-145)
== END ==
LOC: M SFHCPLAZ 09:20
PROVIDERS: ATTEND Family Medicine
DX: I10 Essential (primary) hypertension (principal)

== ENCOUNTER → 2019-03-12 | Outpatient (REF) | payer OTHER ==
[2019-03-12 13:36] LABS: BLOOD UREA NITROGEN 18 MG/DL (7-18); CALCIUM LEVEL 9.1 MG/DL (8.5-10.1); CARBON DIOXIDE LEVEL 28 MEQ/L (21-32); CHLORIDE LEVEL 104 MEQ/L (98-107); CREATININE FOR GFR 0.98 MG/DL (0.70-1.30); GLOMERULAR FILTRATION RATE > 60.0 (>56); GLUCOSE, FASTING 130 MG/DL (70-100); MAGNESIUM LEVEL 2.3 MG/DL (1.8-2.4); NT-PRO BNP 38 PG/ML (<125); POTASSIUM SERUM 3.6 MEQ/L (3.5-5.1); SODIUM LEVEL 139 MEQ/L (136-145)
== END ==
LOC: M LABDRWAD 12:42
PROVIDERS: ATTEND Physician Assistant
DX: I50.32 Chronic diastolic (congestive) heart failure (principal); E83.42 Hypomagnesemia

== ENCOUNTER 2019-05-11 09:16 | Emergency (ER) | payer OTHER ==
[~2019-05-11] VITALS: Ht 182.9 cm; Wt 149.9 kg
[2019-05-11] MEDS ORDERED: TORS10TA3 PO (09:33)
[2019-05-11] MEDS ORDERED: CHLO125TA PO (09:33)
[2019-05-11] MEDS ORDERED: AMLO10TA PO (09:52)
[2019-05-11 09:57] LABS: BASO # 0.1 10^3/uL (0.0-0.2); BASO % 0.8 % (0.0-1.0); EOS # 0.3 10^3/uL (0.0-0.5); EOS % 3.4 % (0.0-3.0); HEMATOCRIT 47.8 % (42.0-52.0); HEMOGLOBIN 16.3 g/dl (13.5-17.5); LYMPH # 1.4 10^3/uL (1.5-5.0); MEAN CORPUSCULAR HEMOGLOBIN 31.3 pg (27.0-33.0); MEAN CORPUSCULAR HGB CONC 34.1 g/dl (32.0-36.5); MEAN CORPUSCULAR VOLUME 91.9 fl (80.0-96.0); MONO # 0.7 10^3/uL (0.0-0.8); MONO % 7.5 % (0.0-5.0); NEUTROPHILS # 7.3 10^3/uL (1.5-8.5); NEUTROPHILS % 73.6 % (36.0-66.0); PLATELET COUNT, AUTOMATED 315 10^3/uL (150-450); WHITE BLOOD COUNT 9.9 10^3/uL (4.0-10.0)
[2019-05-11 10:27] LABS: ALBUMIN 3.8 GM/DL (3.2-5.2); ALT/SGPT 72 U/L (12-78); BILIRUBIN,DIRECT 0.1 MG/DL (0.0-0.2); BILIRUBIN,TOTAL 0.3 MG/DL (0.2-1.0); BLOOD UREA NITROGEN 19 MG/DL (7-18); CALCIUM LEVEL 9.6 MG/DL (8.5-10.1); CARBON DIOXIDE LEVEL 28 MEQ/L (21-32); CHLORIDE LEVEL 101 MEQ/L (98-107); CK-MB VALUE MASS 1.6 NG/ML (<3.6); CPK CREATINE PHOSPHOKINASE 137 U/L (39-308); CREATININE FOR GFR 0.96 MG/DL (0.70-1.30); GLOMERULAR FILTRATION RATE > 60.0 (>56); GLUCOSE, FASTING 134 MG/DL (70-100); LIPASE 66 U/L (73-393); MB/CK RELATIVE INDEX 1.17 (< OR =4); NT-PRO BNP 41 PG/ML (<125); POTASSIUM SERUM 3.8 MEQ/L (3.5-5.1); SODIUM LEVEL 138 MEQ/L (136-145); TOTAL PROTEIN 7.8 GM/DL (6.4-8.2); TROPONIN I < 0.02 NG/ML (< 0.10)
--- NOTE | 2019-05-11 11:10 | REP ---
PORTABLE CHEST X-RAY: Single view. HISTORY: Chest pain. COMPARISON STUDY: August 21, 2018. FINDINGS: The lungs are symmetrically aerated and clear. Pleural angles are sharp. Heart is not felt to be enlarged. EKG monitoring electrodes are seen. Pulmonary vasculature is not increased. IMPRESSION: No active disease. Electronically Signed by Driss Lee MD 05/11/2019 11:30 A
[2019-05-11 12:54] LABS: CK-MB VALUE MASS 1.8 NG/ML (<3.6); CPK CREATINE PHOSPHOKINASE 118 U/L (39-308); MB/CK RELATIVE INDEX 1.53 (< OR =4); TROPONIN I < 0.02 NG/ML (< 0.10)
[2019-05-11 15:30] LABS: CK-MB VALUE MASS 1.3 NG/ML (<3.6); CPK CREATINE PHOSPHOKINASE 113 U/L (39-308); MB/CK RELATIVE INDEX 1.15 (< OR =4); TROPONIN I < 0.02 NG/ML (< 0.10)
[2019-05-11 15:51] VITALS: BP 129/68
--- NOTE | 2019-05-12 05:44 | ECGEPIP ---
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
--- NOTE | 2019-05-12 05:47 | ECGEPIP ---
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
--- NOTE | 2019-05-12 05:51 | ECGEPIP ---
[facility] - ED Test Date: 2019-05-11 Pat Name: GEENA MATSON Department: Room: - Gender: Male Obstetrics Specialist: harriett : 1960 Requested By: Jeffrey Cota Order Number: [id number] Reading MD: Jeffrey Mccarthy Measurements Intervals [place] Rate: 86 P: 62 GA: 188 QRS: -25 QRSD: 85 T: 26 QT: 385 QTc: 463 Interpretive Statements SINUS RHYTHM LOW QRS VOLTAGE IN PRECORDIAL LEADS PATTERN CONSISTENT WITH PULMONARY DISEASE SEPTAL MYOCARDIAL INFARCTION, OF INDETERMINATE AGE NSTTW ABNORMALITIES SIMILAR TO PRIOR ON SAME DATE Electronically Signed on 05-12-2019 5:51:02 EDT by Jeffrey Mccarthy
== END 2019-05-11 15:50 | disposition home or self-care (01) ==
LOC: M ED 09:16
DX: R07.89 Other chest pain (principal); R94.31 Abnormal electrocardiogram [ECG] [EKG]; R42 Dizziness and giddiness; R60.0 Localized edema; I25.119 Atherosclerotic heart disease of native coronary artery with unspecified angina pectoris; I10 Essential (primary) hypertension; Z88.8 Allergy status to other drugs, medicaments and biological substances; Z79.82 Long term (current) use of aspirin; Z79.899 Other long term (current) drug therapy

== ENCOUNTER → 2019-09-02 | Outpatient (CLI) | payer OTHER ==
[~2019-09-02] MED LIST changes: +AMLO10TA PO; +TORS10TA3 PO
[2019-09-02 18:13] LABS: ALBUMIN 3.6 GM/DL (3.2-5.2); ALT/SGPT 69 U/L (12-78); BILIRUBIN,TOTAL 0.5 MG/DL (0.2-1.0); BLOOD UREA NITROGEN 17 MG/DL (7-18); CALCIUM LEVEL 9.2 MG/DL (8.5-10.1); CARBON DIOXIDE LEVEL 31 MEQ/L (21-32); CHLORIDE LEVEL 101 MEQ/L (98-107); CHOLESTEROL LEVEL 166 MG/DL (<200); CREATININE FOR GFR 0.95 MG/DL (0.70-1.30); GLOMERULAR FILTRATION RATE > 60.0 (>56); GLUCOSE, FASTING 104 MG/DL (70-100); HDL CHOLESTEROL 43 MG/DL (>40); LDL CHOLESTEROL 102 MG/DL (<100); NON-HDL-C 123 MG/DL; POTASSIUM SERUM 3.9 MEQ/L (3.5-5.1); SODIUM LEVEL 141 MEQ/L (136-145); TOTAL PROTEIN 7.7 GM/DL (6.4-8.2); TRIGLYCERIDES LEVEL 103 MG/DL (<150)
== END ==
LOC: M LABDRWAD 08:05
PROVIDERS: ATTEND Physician Assistant
DX: I25.10 Atherosclerotic heart disease of native coronary artery without angina pectoris (principal); I50.32 Chronic diastolic (congestive) heart failure; E78.00 Pure hypercholesterolemia, unspecified

== ENCOUNTER → 2020-04-09 | Outpatient (REF) | payer OTHER ==
[~2020-04-09] MED LIST changes: +AMLO1TAB24; +AMLO1TAB24 PO; -AMLO5TAB6; +ASPI-546 PO; -ASPI1TAB15 PO; +OXAZ30CA2 PO
[2020-05-25 10:43] LABS: BLOOD UREA NITROGEN 13 MG/DL (7-18); CALCIUM LEVEL 9.1 MG/DL (8.8-10.2); CARBON DIOXIDE LEVEL 32 MEQ/L (21-32); CHLORIDE LEVEL 105 MEQ/L (98-107); CREATININE FOR GFR 1.01 MG/DL (0.70-1.30); GLOMERULAR FILTRATION RATE > 60.0 (>49); GLUCOSE, FASTING 107 MG/DL (70-100); MAGNESIUM LEVEL 2.4 MG/DL (1.8-2.4); POTASSIUM SERUM 4.2 MEQ/L (3.5-5.1); SODIUM LEVEL 141 MEQ/L (136-145)
== END ==
LOC: M LABDRWAD 10:39
PROVIDERS: ATTEND Physician Assistant
DX: I50.32 Chronic diastolic (congestive) heart failure (principal); E83.42 Hypomagnesemia

== ENCOUNTER 2020-04-28 17:13 | Emergency (ER) | payer OTHER ==
[~2020-04-28] VITALS: Ht 185.4 cm; Wt 134.1 kg
[~2020-04-28 17:13] MED LIST changes: -AMLO1TAB24 PO; -OXAZ30CA2 PO
[2020-04-28 21:08] VITALS: BP 138/68
== END 2020-04-28 21:09 | disposition home or self-care (01) ==
LOC: M ED 17:13 → EDBD 17:13 → M ED 21:09
DX: F10.129 Alcohol abuse with intoxication, unspecified (principal); I10 Essential (primary) hypertension; F17.210 Nicotine dependence, cigarettes, uncomplicated; Z88.8 Allergy status to other drugs, medicaments and biological substances; Z79.899 Other long term (current) drug therapy

== ENCOUNTER → 2020-05-06 | Outpatient (CLI) | payer MEDICAID ==
[~2020-05-06] MED LIST changes: +AMLO1TAB24 PO; +OXAZ30CA2 PO
== END ==
LOC: M OUTALCOH 14:12
PROVIDERS: ATTEND Psychiatry & Neurology Addiction Medicine
DX: F10.20 Alcohol dependence, uncomplicated (principal)

== ENCOUNTER 2020-05-08 18:32 | Emergency (ER) | payer MEDICAID ==
[~2020-05-08] VITALS: Ht 182.9 cm; Wt 131.8 kg
[~2020-05-08 18:32] MED LIST changes: -AMLO1TAB24 PO; -OXAZ30CA2 PO
[2020-05-08] MEDS ORDERED: OXAZEPAM 15 MG CAP PO ONE (19:00)
[2020-05-08 19:28] LABS: BASO # 0.1 10^3/uL (0.0-0.2); BASO % 0.8 % (0.0-1.0); EOS # 0.2 10^3/uL (0.0-0.5); EOS % 1.8 % (0.0-3.0); HEMATOCRIT 47.1 % (42.0-52.0); HEMOGLOBIN 16.3 g/dl (13.5-17.5); LYMPH # 1.9 10^3/uL (1.5-5.0); LYMPH % 16.6 % (24.0-44.0); MEAN CORPUSCULAR HEMOGLOBIN 31.5 pg (27.0-33.0); MEAN CORPUSCULAR HGB CONC 34.6 g/dl (32.0-36.5); MEAN CORPUSCULAR VOLUME 90.9 fl (80.0-96.0); MONO # 0.7 10^3/uL (0.0-0.8); NEUTROPHILS # 8.5 10^3/uL (1.5-8.5); NEUTROPHILS % 74.2 % (36.0-66.0); PLATELET COUNT, AUTOMATED 356 10^3/uL (150-450); RED BLOOD COUNT 5.18 10^6/uL (4.30-6.10); WHITE BLOOD COUNT 11.4 10^3/uL (4.0-10.0)
[2020-05-08 19:42] LABS: INR 1.06
[2020-05-08 19:43] LABS: PARTIAL THROMBOPLASTIN TIME 32.6 SECONDS (25.0-38.4)
[2020-05-08 19:54] LABS: ALBUMIN 3.6 GM/DL (3.2-5.2); ALT/SGPT 48 U/L (12-78); BILIRUBIN,DIRECT 0.2 MG/DL (0.0-0.2); BILIRUBIN,TOTAL 0.6 MG/DL (0.2-1.0); BLOOD UREA NITROGEN 19 MG/DL (7-18); CALCIUM LEVEL 9.1 MG/DL (8.8-10.2); CARBON DIOXIDE LEVEL 29 MEQ/L (21-32); CHLORIDE LEVEL 103 MEQ/L (98-107); CK-MB VALUE MASS < 1.0 NG/ML (<3.6); CPK CREATINE PHOSPHOKINASE 114 U/L (39-308); CREATININE FOR GFR 1.12 MG/DL (0.70-1.30); FREE T4 0.91 NG/DL (0.76-1.46); GLOMERULAR FILTRATION RATE > 60.0 (>49); GLUCOSE, FASTING 180 MG/DL (70-100); LIPASE 72 U/L (73-393); MB/CK RELATIVE INDEX 0.88 (< OR =4); POTASSIUM SERUM 3.1 MEQ/L (3.5-5.1); SODIUM LEVEL 139 MEQ/L (136-145); TOTAL PROTEIN 7.5 GM/DL (6.4-8.2); TROPONIN I < 0.02 NG/ML (< 0.10)
--- NOTE | 2020-05-08 20:01 | REPVR ---
PROCEDURE INFORMATION: Exam: XR Chest, 2 Views Exam date and time: 05/08/2020 7:27 PM Age: 59 years old Clinical indication: Shortness of breath; Additional info: Chest pain TECHNIQUE: Imaging protocol: XR of the chest Views: 2 views. COMPARISON: CA Chest, 1 view 05/11/2019 10:29 AM FINDINGS: Lungs: Unremarkable. No consolidation. Pleural space: Unremarkable. No pleural effusion. No pneumothorax. Heart/Mediastinum: Unremarkable. No cardiomegaly. Bones/joints: Unremarkable. IMPRESSION: No acute findings. Electronically signed by: Javier Doshi On 05/08/2020 20:01:23 PM
[2020-05-08] MEDS ORDERED: POTASSIUM CHLORIDE 10 MEQ SR TABLET PO ONE (20:15)
[2020-05-08] MEDS ORDERED: ISOVUE-370 76% 100ML VIAL As Ordered ONE (20:16)
--- NOTE | 2020-05-08 21:18 | REPVR ---
PROCEDURE INFORMATION: Exam: CT Angiography Chest With Contrast Exam date and time: 05/08/2020 8:28 PM Age: 59 years old Clinical indication: Chest pain TECHNIQUE: Imaging protocol: Computed tomographic angiography of the chest with intravenous contrast. 3D rendering (Not supervised by radiologist): MIP and/or 3D reconstructed images were created by the technologist. Radiation optimization: All CT scans at this facility use at least one of these dose optimization techniques: automated exposure control; mA and/or kV adjustment per patient size (includes targeted exams where dose is matched to clinical indication); or iterative reconstruction. Contrast material: ISOVUE 370; Contrast volume: 75 ml; Contrast route: INTRAVENOUS (IV); COMPARISON: CT ANGIO CHEST 09/06/2016 7:21 PM FINDINGS: Pulmonary arteries: There is opacification of the pulmonary arteries with no evidence of pulmonary embolus. Aorta: There is opacification of the aorta which appears intact. Lungs: 6 mm oval nodule right upper lung similar to the examination 2017. Two small more linear densities in the right mid lung field probably scarring and unchanged since 2017. There is mild interstitial prominence throughout the lungs similar to the previous exam. Pleural space: Unremarkable. No pneumothorax. No pleural effusion. Heart: There is mild to moderate cardiomegaly. Lymph nodes: Small lymph nodes are noted in the right and left axilla. Bones/joints: There is anterior osteophyte formation of the thoracic spine. Soft tissues: No evidence of soft tissue abnormality. IMPRESSION: 1. There is no evidence of pulmonary embolus. 2. There is mild to moderate cardiomegaly and unchanged. Electronically signed by: Richy Mosher On 05/08/2020 21:17:59 PM
[2020-05-08] MEDS ORDERED: OXAZ30CA2 PO (21:28)
[2020-05-09 00:30] VITALS: BP 122/61
[2020-05-09 01:18] LABS: CK-MB VALUE MASS < 1.0 NG/ML (<3.6); CPK CREATINE PHOSPHOKINASE 97 U/L (39-308); MB/CK RELATIVE INDEX 1.03 (< OR =4); TROPONIN I < 0.02 NG/ML (< 0.10)
--- NOTE | 2020-05-13 19:00 | ECGEPIP ---
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
--- NOTE | 2020-05-27 10:11 | ECGEPIP ---
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
== END 2020-05-09 01:35 | disposition home or self-care (01) ==
LOC: M ED 18:32 → EDBD 18:32 → M ED 05-09 01:35
DX: R07.89 Other chest pain (principal); R94.31 Abnormal electrocardiogram [ECG] [EKG]; I11.9 Hypertensive heart disease without heart failure; F17.210 Nicotine dependence, cigarettes, uncomplicated; Z88.8 Allergy status to other drugs, medicaments and biological substances; Z79.82 Long term (current) use of aspirin; Z79.899 Other long term (current) drug therapy
CPT/HCPCS: 36415; 71046; 71275; 80048; 80076; 82550; 82553; 83690; 84439; 84443; 85025; 85610; 85730; 93005; 93041; 94760; 99285; Q9967

== ENCOUNTER → 2020-05-28 | Outpatient (RCR) | payer MEDICAID ==
[~2020-05-28] MED LIST changes: +AMLO1TAB24 PO; +OXAZ30CA2 PO
== END ==
LOC: M OUTALCOH 05-13 15:51
PROVIDERS: ATTEND Psychiatry & Neurology Addiction Medicine
DX: F10.20 Alcohol dependence, uncomplicated (principal); Z72.0 Tobacco use

== ENCOUNTER 2020-06-25 08:00 | Outpatient (RCR) | payer MEDICAID ==
[~2020-06-25 08:00] MED LIST changes: -AMLO1TAB24 PO
== END 2020-06-28 ==
LOC: M OUTALCOH 08:00
PROVIDERS: ATTEND Psychiatry & Neurology Addiction Medicine
DX: F10.20 Alcohol dependence, uncomplicated (principal); Z72.0 Tobacco use

== ENCOUNTER 2020-07-01 17:55 | Emergency (ER) | payer MEDICAID, OTHER ==
[~2020-07-01] VITALS: Ht 182.9 cm; Wt 134.0 kg
[2020-07-01] MEDS ORDERED: AMLO1TAB24 PO (18:13)
--- NOTE | 2020-07-01 18:28 | REP ---
INDICATION: CHEST PAIN. COMPARISON: 05/08/2020. TECHNIQUE: Single frontal portable view of the chest is performed. FINDINGS: There is mild cardiomegaly. There is no acute infiltrate. There is no pulmonary edema. The mediastinal silhouette is unchanged. IMPRESSION: No acute pulmonary disease. Mild cardiomegaly. <Electronically signed by Marciano Snowden > 07/01/20 [id number]
[2020-07-01 18:52] LABS: BASO # 0.1 10^3/uL (0.0-0.2); BASO % 0.7 % (0.0-1.0); EOS # 0.4 10^3/uL (0.0-0.5); EOS % 3.3 % (0.0-3.0); HEMOGLOBIN 16.2 g/dl (13.5-17.5); LYMPH # 2.3 10^3/uL (1.5-5.0); LYMPH % 20.9 % (24.0-44.0); MEAN CORPUSCULAR HEMOGLOBIN 29.9 pg (27.0-33.0); MEAN CORPUSCULAR HGB CONC 33.1 g/dl (32.0-36.5); MEAN CORPUSCULAR VOLUME 90.6 fl (80.0-96.0); MONO # 0.6 10^3/uL (0.0-0.8); MONO % 5.6 % (0.0-5.0); NEUTROPHILS # 7.7 10^3/uL (1.5-8.5); NEUTROPHILS % 69.1 % (36.0-66.0); PLATELET COUNT, AUTOMATED 393 10^3/uL (150-450); RED BLOOD COUNT 5.41 10^6/uL (4.30-6.10); WHITE BLOOD COUNT 11.2 10^3/uL (4.0-10.0)
[2020-07-01 19:35] LABS: ALBUMIN 3.8 GM/DL (3.2-5.2); ALT/SGPT 27 U/L (12-78); BILIRUBIN,DIRECT 0.2 MG/DL (0.0-0.2); BILIRUBIN,TOTAL 0.4 MG/DL (0.2-1.0); ETHYL ALCOHOL (ETHANOL) < 0.003 % (0.000-0.010); LIPASE 67 U/L (73-393); TOTAL PROTEIN 7.7 GM/DL (6.4-8.2)
[2020-07-01 23:42] VITALS: BP 154/72
--- NOTE | 2020-07-04 08:49 | ECGEPIP ---
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
--- NOTE | 2020-07-04 08:58 | ECGEPIP ---
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
== END 2020-07-01 23:42 | disposition home or self-care (01) ==
LOC: M ED 17:55
DX: R07.89 Other chest pain (principal); R94.31 Abnormal electrocardiogram [ECG] [EKG]; I51.7 Cardiomegaly; E78.5 Hyperlipidemia, unspecified; F10.20 Alcohol dependence, uncomplicated; Z79.82 Long term (current) use of aspirin; Z79.899 Other long term (current) drug therapy
CPT/HCPCS: 36415; 71045; 80047; 80076; 83690; 85025; 93005; 93041; 94760; 99285; G0480

== ENCOUNTER → 2020-07-28 | Outpatient (RCR) | payer MEDICAID ==
[~2020-07-28] MED LIST changes: +AMLO1TAB24 PO
== END ==
LOC: M OUTALCOH 06-30 13:16
PROVIDERS: ATTEND Psychiatry & Neurology Addiction Medicine
DX: F10.20 Alcohol dependence, uncomplicated (principal); Z72.0 Tobacco use

== ENCOUNTER → 2020-08-04 | Outpatient (CLI) | payer OTHER ==
--- NOTE | 2020-08-04 10:26 | REP ---
INDICATION: HEPATOMEGALY. COMPARISON: None. TECHNIQUE: Real-time sonographic evaluation of right upper quadrant performed. FINDINGS: The gallbladder demonstrates no evidence of intraluminal sludge or calculi, wall thickening or pericholecystic fluid. There is no intrahepatic or extrahepatic biliary dilatation, common bile duct measures 6 mm in maximum diameter. The liver demonstrates significant heterogeneous increased echotexture compatible with diffuse fibrofatty infiltration. No gross mass is seen. Pancreas is obscured by overlying bowel gas. The right kidney demonstrates no hydronephrosis, with a normal size of 14.0 cm in length. No free fluid is seen. IMPRESSION: Limited exam due to body habitus and bowel gas. Diffuse fibrofatty infiltration of the liver. <Electronically signed by Marciano Snowden > 08/04/20 1020
== END ==
LOC: M RAD 08:21
PROVIDERS: ATTEND Family Medicine
DX: R16.0 Hepatomegaly, not elsewhere classified (principal)

== ENCOUNTER → 2020-08-28 | Outpatient (RCR) | payer MEDICAID | LOC: M OUTALCOH 07-30 13:17 | PROVIDERS: ATTEND Psychiatry & Neurology Addiction Medicine | DX: F10.20 Alcohol dependence, uncomplicated (principal); Z72.0 Tobacco use ==

== ENCOUNTER 2020-09-24 08:00 | Outpatient (RCR) | payer MEDICAID | END 2020-09-28 | LOC: M OUTALCOH 08:00 | PROVIDERS: ATTEND Psychiatry & Neurology Psychiatry | DX: F10.20 Alcohol dependence, uncomplicated (principal); Z72.0 Tobacco use ==

== ENCOUNTER 2020-10-15 13:00 | Outpatient (RCR) | payer MEDICAID | END 2020-10-26 | LOC: M OUTALCOH 13:00 | PROVIDERS: ATTEND Psychiatry & Neurology Addiction Medicine | DX: F10.20 Alcohol dependence, uncomplicated (principal); Z72.0 Tobacco use ==

== ENCOUNTER → 2020-11-20 | Outpatient (CLI) | payer MEDICAID ==
[2020-11-20 10:44] LABS: BLOOD UREA NITROGEN 19 MG/DL (7-18); CALCIUM LEVEL 9.1 MG/DL (8.8-10.2); CARBON DIOXIDE LEVEL 32 MEQ/L (21-32); CHLORIDE LEVEL 102 MEQ/L (98-107); CREATININE FOR GFR 0.87 MG/DL (0.70-1.30); GLOMERULAR FILTRATION RATE > 60.0 (>49); GLUCOSE, FASTING 120 MG/DL (70-100); MAGNESIUM LEVEL 2.3 MG/DL (1.8-2.4); POTASSIUM SERUM 3.8 MEQ/L (3.5-5.1); SODIUM LEVEL 140 MEQ/L (136-145)
== END ==
LOC: M PLALAB 08:13
PROVIDERS: ATTEND Physician Assistant
DX: I50.32 Chronic diastolic (congestive) heart failure (principal); E83.42 Hypomagnesemia

== ENCOUNTER → 2021-02-12 | Outpatient (REF) | payer OTHER | LOC: M SFHCPLAZ 11:05 | PROVIDERS: ATTEND Family Medicine | DX: Z53.9 Procedure and treatment not carried out, unspecified reason (principal); I50.32 Chronic diastolic (congestive) heart failure; Z79.82 Long term (current) use of aspirin ==

== ENCOUNTER → 2021-02-17 | Outpatient (REF) | payer OTHER ==
[2021-02-17 20:29] LABS: ALBUMIN 3.8 GM/DL (3.2-5.2); ALT/SGPT 37 U/L (12-78); BILIRUBIN,TOTAL 0.4 MG/DL (0.2-1.0); BLOOD UREA NITROGEN 15 MG/DL (7-18); CALCIUM LEVEL 9.2 MG/DL (8.8-10.2); CARBON DIOXIDE LEVEL 31 MEQ/L (21-32); CHLORIDE LEVEL 103 MEQ/L (98-107); CREATININE FOR GFR 0.82 MG/DL (0.70-1.30); GLOMERULAR FILTRATION RATE > 60.0 (>49); GLUCOSE, FASTING 73 MG/DL (70-100); POTASSIUM SERUM 4.1 MEQ/L (3.5-5.1); SODIUM LEVEL 140 MEQ/L (136-145); TOTAL PROTEIN 7.8 GM/DL (6.4-8.2)
== END ==
LOC: M SFHCPLAZ 15:28
PROVIDERS: ATTEND Family Medicine
DX: I50.32 Chronic diastolic (congestive) heart failure (principal); Z79.82 Long term (current) use of aspirin

== ENCOUNTER → 2021-02-17 | Outpatient (CLI) | payer OTHER ==
[2021-02-17 19:50] LABS: BLOOD UREA NITROGEN 14 MG/DL (7-18); CALCIUM LEVEL 9.1 MG/DL (8.8-10.2); CARBON DIOXIDE LEVEL 32 MEQ/L (21-32); CHLORIDE LEVEL 103 MEQ/L (98-107); CREATININE FOR GFR 0.84 MG/DL (0.70-1.30); GLOMERULAR FILTRATION RATE > 60.0 (>49); GLUCOSE, FASTING 70 MG/DL (70-100); POTASSIUM SERUM 4.1 MEQ/L (3.5-5.1); SODIUM LEVEL 139 MEQ/L (136-145)
== END ==
LOC: M PLALAB 15:28
PROVIDERS: ATTEND Physician Assistant
DX: I50.32 Chronic diastolic (congestive) heart failure (principal); Z79.82 Long term (current) use of aspirin

== ENCOUNTER → 2021-04-09 | Outpatient (REF) | payer OTHER | LOC: M LAB REF 18:27 | PROVIDERS: ATTEND Family Medicine | DX: L91.8 Other hypertrophic disorders of the skin (principal) ==

== ENCOUNTER → 2021-04-22 | Outpatient (CLI) | payer OTHER ==
--- NOTE | 2021-04-22 08:30 | REP ---
INDICATION: ALCOHOLIC CIRRHOSIS OF LIVER COMPARISON: 08/04/2020 TECHNIQUE: Real time pacheco scale ultrasound examination using curved array transducer. FINDINGS: Liver is diffusely echogenic causing decreased through transmission and penetration. No obvious focal mass lesion identified. Pancreas is incompletely evaluated due to interposed bowel gas. The gallbladder is normal and without gallstones, wall thickening, or pericholecystic fluid. No biliary ductal dilatation is appreciated and the common bile duct measures 4.3 mm diameter. Right kidney is normal in reniform shape without hydronephrosis and measures 12.9 x 5.6 x 5.9 cm. No ascites in the visualized right upper quadrant. IMPRESSION: 1. Significantly limited evaluation of the liver due to diffuse hepatosteatosis/hepatocellular disease. 2. As above. <Electronically signed by Raymond Slaughter > 04/22/21 0849
== END ==
LOC: M RAD 06:50
PROVIDERS: ATTEND Family Medicine
DX: K74.60 Unspecified cirrhosis of liver (principal)

== ENCOUNTER 2021-04-26 12:55 | Emergency (ER) | payer OTHER ==
[~2021-04-26] VITALS: Ht 182.9 cm; Wt 143.5 kg
--- NOTE | 2021-04-26 14:30 | REP ---
INDICATION: low back pain, popping sensation after injury COMPARISON: None. TECHNIQUE: AP, lateral, bilateral oblique, and coned-down views of the lumbar spine. FINDINGS: Evfu-[id number]-umyzxrta multilevel degenerative changes include endplate sclerosis, marginal spurring, and facet hypertrophy. Findings are most pronounced at the L4-5 and L5-S1 level where disc space narrowing is also appreciated. There is no evidence for acute fracture/compression injury or subluxation. No spondylolysis or spondylolisthesis. IMPRESSION: Moderate multilevel degenerative changes most pronounced at L4-5 and L5-S1. No acute fracture/compression injury or subluxation. <Electronically signed by Raymond Slaughter > 04/26/21 [id number]
[2021-04-26] MEDS ORDERED: ULTR50TA8 PO (14:45)
[2021-04-26] MEDS ORDERED: MEDR4PAK PO (14:45)
[2021-04-26 14:52] VITALS: BP 144/90
== END 2021-04-26 15:05 | disposition home or self-care (01) ==
LOC: M ED 12:55
DX: M51.36 Other intervertebral disc degeneration, lumbar region (principal); M51.37 Other intervertebral disc degeneration, lumbosacral region; I25.10 Atherosclerotic heart disease of native coronary artery without angina pectoris; F17.200 Nicotine dependence, unspecified, uncomplicated; Z79.899 Other long term (current) drug therapy

== ENCOUNTER 2021-04-27 22:04 | Emergency (ER) | payer OTHER ==
[~2021-04-27] VITALS: Ht 182.9 cm; Wt 140.9 kg
[~2021-04-27 22:04] MED LIST changes: +MEDR4PAK PO; +ULTR50TA8 PO
--- NOTE | 2021-04-27 23:00 | REPVR ---
PROCEDURE INFORMATION: Exam: XR Chest Exam date and time: 04/27/2021 10:28 PM Age: 60 years old Clinical indication: Chest wall pain; Additional info: Chest pain TECHNIQUE: Imaging protocol: XR of the chest. Views: 1 view. COMPARISON: ND PORTABLE CHEST X-RAY 07/01/2020 6:12 PM FINDINGS: Lungs: There are no interval infiltrates. Pleural spaces: Unremarkable. No pleural effusion. No pneumothorax. Heart/Mediastinum: The heart and mediastinum are unchanged. Bones/joints: Unremarkable. Soft tissues: There are generous overlying soft tissues. IMPRESSION: Stable chest since 07/01/2020. No acute interval process is identified. Electronically signed by: Dmitriy Celaya On 04/27/2021 23:00:41 PM
[2021-04-27 23:19] LABS: BASO # 0.1 10^3/uL (0.0-0.2); BASO % 0.3 % (0.0-1.0); HEMATOCRIT 43.8 % (42.0-52.0); HEMOGLOBIN 15.1 g/dl (13.5-17.5); LYMPH % 6.3 % (24.0-44.0); MEAN CORPUSCULAR HEMOGLOBIN 31.3 pg (27.0-33.0); MEAN CORPUSCULAR HGB CONC 34.5 g/dl (32.0-36.5); MEAN CORPUSCULAR VOLUME 90.9 fl (80.0-96.0); MONO # 0.7 10^3/uL (0.0-0.8); MONO % 4.2 % (2.0-8.0); NEUTROPHILS # 14.4 10^3/uL (1.5-8.5); NEUTROPHILS % 88.4 % (36.0-66.0); PLATELET COUNT, AUTOMATED 349 10^3/uL (150-450); RED BLOOD COUNT 4.82 10^6/uL (4.30-6.10); WHITE BLOOD COUNT 16.3 10^3/uL (4.0-10.0)
[2021-04-27 23:55] LABS: ALBUMIN 3.4 GM/DL (3.2-5.2); ALT/SGPT 40 U/L (12-78); BILIRUBIN,DIRECT < 0.1 MG/DL (0.0-0.2); BILIRUBIN,TOTAL 0.3 MG/DL (0.2-1.0); BLOOD UREA NITROGEN 19 MG/DL (7-18); CALCIUM LEVEL 9.3 MG/DL (8.8-10.2); CARBON DIOXIDE LEVEL 28 MEQ/L (21-32); CHLORIDE LEVEL 105 MEQ/L (98-107); CK-MB VALUE MASS 1.7 NG/ML (<3.6); CPK CREATINE PHOSPHOKINASE 95 U/L (39-308); CREATININE FOR GFR 0.97 MG/DL (0.70-1.30); GLOMERULAR FILTRATION RATE > 60.0 (>49); GLUCOSE, FASTING 147 MG/DL (70-100); LIPASE 45 U/L (73-393); MB/CK RELATIVE INDEX 1.79 (< OR =4); POTASSIUM SERUM 4.4 MEQ/L (3.5-5.1); SODIUM LEVEL 137 MEQ/L (136-145); TOTAL PROTEIN 7.1 GM/DL (6.4-8.2); TROPONIN I 0.11 NG/ML (< 0.10)
[2021-04-28] MEDS ORDERED: ISOVUE-370 76% 100ML VIAL As Ordered ONE (00:40)
--- NOTE | 2021-04-28 01:10 | REPVR ---
PROCEDURE INFORMATION: Exam: CTA Chest With Contrast Exam date and time: 04/28/2021 12:35 AM Age: 60 years old Clinical indication: Pain; Other: Chest; Additional info: Chest pain- radiating to both arms, R/O dissection TECHNIQUE: Imaging protocol: Computed tomographic angiography of the chest with contrast. 3D rendering (Not supervised by radiologist): MIP and/or 3D reconstructed images were created by the technologist. Radiation optimization: All CT scans at this facility use at least one of these dose optimization techniques: automated exposure control; mA and/or kV adjustment per patient size (includes targeted exams where dose is matched to clinical indication); or iterative reconstruction. Contrast material: ISO; Contrast volume: 75 ml; Contrast route: INTRAVENOUS (IV); COMPARISON: CT ANGIO CHEST 05/08/2020 8:19 PM FINDINGS: Pulmonary arteries: The main pulmonary artery measures 27 mm. No pulmonary embolism is identified. Aorta: The ascending thoracic aorta measures 40 mm. No gross or obvious aortic dissection is identified distal to the mid arch. Artifact and image degradation precludes detailed evaluation of the ascending thoracic aorta. Lungs: Minimal dependent atelectasis and question of minimal ground-glass infiltrates. Scattered 3 mm nodules bilaterally which are unchanged from 05/08/2020. Pleural spaces: Unremarkable. No pneumothorax. No pleural effusion. Heart: Unremarkable. No cardiomegaly. No pericardial effusion. Lymph nodes: Unremarkable. No enlarged lymph nodes. Liver: The liver attenuation is 23 Hounsfield units and the spleen is 66 Hounsfield units. Bones/joints: Unremarkable. No acute fracture. Soft tissues: Unremarkable. IMPRESSION: 1. Minimal dependent atelectasis and question of minimal scattered ground-glass infiltrates. 2. Borderline aneurysmal dilatation of the ascending thoracic aorta measuring 40 mm. 3. Probable fatty infiltration of the liver. 4. Otherwise negative CTA chest. No pulmonary embolism is identified. Motion and/or beam hardening artifact precludes detailed evaluation of the ascending thoracic aorta and subtle aortic dissection is not excluded on this basis although no gross or obvious dissection is seen. Not grossly ruled in does not mean ruled out. Electronically signed by: Dmitriy Celaya On 04/28/2021 01:10:20 AM
[2021-04-28 01:44] LABS: CK-MB VALUE MASS 1.9 NG/ML (<3.6); MB/CK RELATIVE INDEX 2.11 (< OR =4); TROPONIN I 0.21 NG/ML (< 0.10)
[2021-04-28 02:46] LABS: INR 1.07; PROTHROMBIN TIME 14.3 SECONDS (12.7-14.5)
[2021-04-28 02:47] LABS: PARTIAL THROMBOPLASTIN TIME 34.3 SECONDS (25.9-37.0)
[2021-04-28 03:13] LABS: RSV AMPLIFICATION NEGATIVE (NEGATIVE)
[2021-04-28] MEDS ORDERED: HEPARIN DRIP 25,000 UNITS in IV 1 EA IV SCH (03:25)
[2021-04-28] MEDS ORDERED: HEPARIN SOD (PORCINE) 5000UNITS/ML 1ML VIAL/SYRINGE IV ONE (03:25)
[2021-04-28 04:27] VITALS: BP 162/74
--- NOTE | 2021-04-28 15:50 | ECGEPIP ---
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
--- NOTE | 2021-04-28 15:51 | ECGEPIP ---
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
== END 2021-04-28 05:11 | disposition short-term general hospital (02) ==
LOC: M ED 22:04
DX: I21.4 Non-ST elevation (NSTEMI) myocardial infarction (principal); I10 Essential (primary) hypertension; R91.8 Other nonspecific abnormal finding of lung field; Z79.82 Long term (current) use of aspirin; Z79.899 Other long term (current) drug therapy; Z88.8 Allergy status to other drugs, medicaments and biological substances
CPT/HCPCS: 71045; 71275; 80048; 80076; 82550; 82553; 83690; 85025; 85610; 85730; 87631; 93005; 93041; 94760; 96374; 99285; J1644; Q9967

== ENCOUNTER → 2021-05-07 | Outpatient (REF) | payer OTHER | LOC: M SFHCPLAZ 11:27 | PROVIDERS: ATTEND Family Medicine | DX: I10 Essential (primary) hypertension (principal) ==

== ENCOUNTER → 2021-05-08 | Outpatient (REF) | payer OTHER ==
[2021-05-08 13:55] LABS: CREATININE, URINE 29.9 MG/DL; MALB URINE SIEMENS < 5.0 MG/L; MAU/CREAT RATIO 16.7 MCG/MG (0.0-30.0); TOTAL PROTEIN,RANDOM URINE < 5.0 MG/DL (0.0-12.0)
== END ==
LOC: M SFHCPLAZ 09:15 → M SFHCADAM 09:21
PROVIDERS: ATTEND Family Medicine
DX: I10 Essential (primary) hypertension (principal)

== ENCOUNTER → 2021-06-15 | Outpatient (REF) | payer OTHER | LOC: M SFHCPLAZ 10:38 | PROVIDERS: ATTEND Family Medicine | DX: K70.9 Alcoholic liver disease, unspecified (principal); Z53.9 Procedure and treatment not carried out, unspecified reason ==

== ENCOUNTER → 2021-06-17 | Outpatient (REF) | payer OTHER ==
[2021-06-17 13:35] LABS: HEMATOCRIT 46.8 % (42.0-52.0); HEMOGLOBIN 15.8 g/dl (13.5-17.5); MEAN CORPUSCULAR HEMOGLOBIN 30.6 pg (27.0-33.0); MEAN CORPUSCULAR HGB CONC 33.8 g/dl (32.0-36.5); MEAN CORPUSCULAR VOLUME 90.7 fl (80.0-96.0); PLATELET COUNT, AUTOMATED 349 10^3/uL (150-450); RED BLOOD COUNT 5.16 10^6/uL (4.30-6.10); WHITE BLOOD COUNT 8.6 10^3/uL (4.0-10.0)
[2021-06-17 13:55] LABS: INR 1.03; PROTHROMBIN TIME 13.9 SECONDS (12.7-14.5)
[2021-06-17 14:10] LABS: FERRITIN 234 NG/ML (26-388)
[2021-06-17 14:17] LABS: HEPATITIS B SURFACE ANTIBODY NEGATIVE (POSITIVE)
[2021-06-17 14:28] LABS: HEPATITIS B SURFACE ANTIGEN NEGATIVE (NEGATIVE)
[2021-06-17 14:56] LABS: HEPATITIS C VIRUS ABY INDEX < 0.0 INDEX (<0.8)
[2021-06-19 19:07] LABS: AFP TUMOR TOTAL 2.2 ng/mL (0.0-8.0); ALPHA 1 ANTITRYPSIN 146 mg/dL (101-187); ANTI-MITOCHONDRIAL ANTIBODY <20.0 Units (0.0-20.0); ANTI-SMOOTH MUSCLE ANTIBODY 4 Units (0-19); CERULOPLASMIN 25.5 mg/dL (16.0-31.0); LIVER-KIDNEY MICROSOMAL ABY <20.1 Units (0.0-20.0); TRANSFERRIN 234 mg/dL (177-329)
== END ==
LOC: M SFHCPLAZ 08:14 → M SFHCADAM 08:15
PROVIDERS: ATTEND Family Medicine
DX: K70.9 Alcoholic liver disease, unspecified (principal)

== ENCOUNTER → 2021-08-05 | Outpatient (REF) | payer OTHER | LOC: M SFHCPLAZ 08:15 → M SFHCADAM 08:16 | PROVIDERS: ATTEND Family Medicine | DX: K70.9 Alcoholic liver disease, unspecified (principal) ==

== ENCOUNTER → 2021-08-11 | Outpatient (REF) | payer OTHER | LOC: M SFHCPLAZ 10:01 | PROVIDERS: ATTEND Family Medicine | DX: K70.9 Alcoholic liver disease, unspecified (principal); Z53.9 Procedure and treatment not carried out, unspecified reason ==

== ENCOUNTER → 2021-09-01 | Outpatient (REF) | payer OTHER | LOC: M SFHCADAM 12:59 | PROVIDERS: ATTEND Physician Assistant | DX: K70.9 Alcoholic liver disease, unspecified (principal) ==

== ENCOUNTER → 2021-10-30 | Outpatient (REF) | payer OTHER ==
[~2021-10-30] MED LIST changes: +LOSA100T45 PO; -LOSA100T50 PO
== END ==
LOC: M SFHCPLAZ 08:19
PROVIDERS: ATTEND Family Medicine
DX: Z53.9 Procedure and treatment not carried out, unspecified reason (principal)

== ENCOUNTER → 2021-11-13 | Outpatient (CLI) | payer OTHER | LOC: M RAD 07:40 | PROVIDERS: ATTEND Family Medicine | DX: Z12.2 Encounter for screening for malignant neoplasm of respiratory organs (principal); F17.210 Nicotine dependence, cigarettes, uncomplicated ==

== ENCOUNTER → 2021-11-17 | Outpatient (REF) | payer OTHER ==
[2021-11-17 13:41] LABS: CHOLESTEROL RISK RATIO 2.256 (<5)
[2021-11-17 14:26] LABS: HEMOGLOBIN A1c 6.4 %
== END ==
LOC: M SFHCPLAZ 12:17 → M LABDRWAD 12:17
PROVIDERS: ATTEND Family Medicine
DX: Z95.5 Presence of coronary angioplasty implant and graft (principal); Z13.1 Encounter for screening for diabetes mellitus

== ENCOUNTER → 2022-02-19 | Outpatient (CLI) | payer OTHER | LOC: M RAD 07:36 | PROVIDERS: ATTEND Family Medicine | DX: K70.9 Alcoholic liver disease, unspecified (principal) ==

== ENCOUNTER → 2022-06-16 | Outpatient (CLI) | payer OTHER ==
[2022-06-16 14:56] LABS: ALT/SGPT 24 U/L (12-78); BILIRUBIN,TOTAL 0.7 MG/DL (0.2-1.0); BLOOD UREA NITROGEN 13 MG/DL (7-18); CALCIUM LEVEL 9.3 MG/DL (8.8-10.2); CARBON DIOXIDE LEVEL 30 MEQ/L (21-32); CHLORIDE LEVEL 105 MEQ/L (98-107); GLOMERULAR FILTRATION RATE > 60.0 (>49); GLUCOSE, FASTING 100 MG/DL (70-100); POTASSIUM SERUM 4.6 MEQ/L (3.5-5.1); SODIUM LEVEL 139 MEQ/L (136-145); TOTAL PROTEIN 7.7 GM/DL (6.4-8.2)
== END ==
LOC: M LABDRWAD 08:16
PROVIDERS: ATTEND Student in an Organized Health Care Education/Training Program
DX: E78.5 Hyperlipidemia, unspecified (principal)

== ENCOUNTER → 2022-09-07 | Outpatient (CLI) | payer OTHER | LOC: M PLAIMG 14:40 | PROVIDERS: ATTEND Student in an Organized Health Care Education/Training Program | DX: M79.18 Myalgia, other site (principal); M54.50 Low back pain, unspecified; M25.552 Pain in left hip ==

== ENCOUNTER → 2022-09-09 | Outpatient (REF) | payer OTHER ==
[2022-09-09 15:37] LABS: CALCIUM LEVEL 9.4 MG/DL (8.3-10.6)
[2022-09-09 15:41] LABS: TOTAL 25(OH) VITAMIN D 16.4 NG/ML (20.0-100.0)
== END ==
LOC: M LABDRWAD 12:57
PROVIDERS: ATTEND Student in an Organized Health Care Education/Training Program
DX: S22.000A Wedge compression fracture of unspecified thoracic vertebra, initial encounter for closed fracture (principal)

== ENCOUNTER → 2022-09-23 | Outpatient (CLI) | payer OTHER | LOC: M SOG 07:59 | PROVIDERS: ATTEND Orthopaedic Surgery | DX: M51.36 Other intervertebral disc degeneration, lumbar region (principal) ==

== ENCOUNTER → 2022-09-30 | Outpatient (CLI) | payer OTHER | LOC: M PLARAD 07:43 | PROVIDERS: ATTEND Orthopaedic Surgery | DX: M47.27 Other spondylosis with radiculopathy, lumbosacral region (principal); M51.26 Other intervertebral disc displacement, lumbar region ==

== ENCOUNTER → 2022-10-29 | Outpatient (CLI) | payer OTHER | LOC: M PLARAD 07:46 | PROVIDERS: ATTEND Orthopaedic Surgery | DX: M70.72 Other bursitis of hip, left hip (principal); M47.816 Spondylosis without myelopathy or radiculopathy, lumbar region ==

== ENCOUNTER → 2022-11-01 | Outpatient (CLI) | payer OTHER | LOC: M PLAIMG 09:07 | PROVIDERS: ATTEND Orthopaedic Surgery | DX: M70.72 Other bursitis of hip, left hip (principal) ==

== ENCOUNTER → 2022-11-03 | Outpatient (CLI) | payer OTHER ==
[~2022-11-03] MED LIST changes: +BRIL90TA; +ERGO500029; +METH32TA PO; +ROSU40TA4
[2022-11-03 11:30] LABS: BASO # 0.1 10^3/uL (0.0-0.2); BASO % 1.2 % (0.0-1.0); EOS # 0.6 10^3/uL (0.0-0.5); EOS % 6.6 % (0.0-3.0); HEMATOCRIT 50.3 % (42.0-52.0); HEMOGLOBIN 16.8 g/dl (13.5-17.5); LYMPH # 1.9 10^3/uL (1.5-5.0); LYMPH % 20.6 % (24.0-44.0); MEAN CORPUSCULAR HEMOGLOBIN 29.7 pg (27.0-33.0); MEAN CORPUSCULAR HGB CONC 33.4 g/dl (32.0-36.5); MONO # 0.9 10^3/uL (0.0-0.8); MONO % 9.6 % (2.0-8.0); NEUTROPHILS # 5.7 10^3/uL (1.5-8.5); NEUTROPHILS % 61.6 % (36.0-66.0); PLATELET COUNT, AUTOMATED 311 10^3/uL (150-450); RED BLOOD COUNT 5.65 10^6/uL (4.30-6.10); WHITE BLOOD COUNT 9.3 10^3/uL (4.0-10.0)
[2022-11-03 11:53] LABS: ERYTHROCYTE SEDIMENTATION RATE 38 mm/hr (0-20)
[2022-11-03 11:59] LABS: C REACTIVE PROTEIN QUANTITATIV < 0.40 MG/DL (<1.0)
[2022-11-03 12:00] LABS: ALKALINE PHOSPHATASE 71 U/L (46-116); ALT/SGPT 24 U/L (7.0-40); AST/SGOT 17 U/L (<34); BILIRUBIN,TOTAL 0.7 MG/DL (0.3-1.2); BLOOD UREA NITROGEN 12 MG/DL (9-23); CALCIUM LEVEL 9.5 MG/DL (8.3-10.6); CARBON DIOXIDE LEVEL 31 MMOL/L (20-31); CHLORIDE LEVEL 101 MMOL/L (98-107); CREATININE FOR GFR 0.82 MG/DL (0.70-1.30); GLOMERULAR FILTRATION RATE > 60.0 (>49); GLUCOSE, FASTING 84 MG/DL (74-106); POTASSIUM SERUM 4.3 MMOL/L (3.5-5.1); SODIUM LEVEL 138 MMOL/L (136-145); TOTAL PROTEIN 7.5 G/DL (5.7-8.2)
[2022-11-05 19:13] LABS: PSA TOTAL 64.3 ng/mL (0.0-4.0)
== END ==
LOC: M PLALAB 09:00
PROVIDERS: ATTEND Orthopaedic Surgery
DX: M70.72 Other bursitis of hip, left hip (principal)

== ENCOUNTER → 2022-11-19 | Outpatient (REF) | payer OTHER | LOC: M SMT 12:55 | PROVIDERS: ATTEND Urology | DX: C61 Malignant neoplasm of prostate (principal) ==

== ENCOUNTER → 2022-12-16 | Outpatient (CLI) | payer OTHER ==
[~2022-12-16] MED LIST changes: +DEXA4TA PO; +HYDR-3715 PO; +HYDR-4433 PO; +ONDA8TAB8 PO; +PRED5TA PO; +PROC10TA5 PO; +ZYTI250T PO
== END ==
LOC: M ONCR 10:32
PROVIDERS: ATTEND General Practice
DX: C61 Malignant neoplasm of prostate (principal); C79.51 Secondary malignant neoplasm of bone; F17.218 Nicotine dependence, cigarettes, with other nicotine-induced disorders; E78.00 Pure hypercholesterolemia, unspecified; I10 Essential (primary) hypertension; K70.0 Alcoholic fatty liver; R73.03 Prediabetes; Z80.7 Family history of other malignant neoplasms of lymphoid, hematopoietic and related tissues; Z86.79 Personal history of other diseases of the circulatory system; Z88.8 Allergy status to other drugs, medicaments and biological substances; Z79.899 Other long term (current) drug therapy

== ENCOUNTER 2022-12-23 09:49 | Outpatient (RCR) | payer OTHER ==
[~2022-12-23 09:49] MED LIST changes: -LIDOCAINE 1% MDV 20ML VIAL As Ordered ONE; -LOSA100T45 PO; +LOSA100T46 PO; -MIDAZOLAM INJ 2MG/2ML VIAL As Ordered ONE; -NS 1,000 ML IV SCH; -ceFAZolin 2 GM/D5W 50 ML IV BAG As Ordered ONE; -ceFAZolin SOD 2 GM in IV 1 EA IV ONE; -diphenhydrAMINE 50MG/ML VIAL As Ordered ONE; -fentaNYL 100 MCG/2 ML INJECTION As Ordered ONE
[2022-12-23] MEDS ORDERED: PRED5TA PO (11:32)
[2022-12-28] MEDS ORDERED: HYDR-4517 PO (15:46)
== END 2022-12-26 ==
LOC: M ONCR 09:49
PROVIDERS: ATTEND General Practice
DX: C79.51 Secondary malignant neoplasm of bone (principal)

== ENCOUNTER → 2022-12-23 | Outpatient (CLI) | payer OTHER ==
[~2022-12-23] MED LIST changes: +LIDOCAINE 1% MDV 20ML VIAL As Ordered ONE; +MIDAZOLAM INJ 2MG/2ML VIAL As Ordered ONE; +NS 1,000 ML IV SCH; +ceFAZolin 2 GM/D5W 50 ML IV BAG As Ordered ONE; +ceFAZolin SOD 2 GM in IV 1 EA IV ONE; +diphenhydrAMINE 50MG/ML VIAL As Ordered ONE; +fentaNYL 100 MCG/2 ML INJECTION As Ordered ONE
[2022-12-23 11:20] VITALS: BP 147/65
== END ==
LOC: M IRPRO 07:24
PROVIDERS: ATTEND Specialist
DX: C61 Malignant neoplasm of prostate (principal)
CPT/HCPCS: 36561; 99152; 99153; C1769; C1788; C1894; J0690; J2250; J3010

== ENCOUNTER 2023-01-06 08:39 | Outpatient (RCR) | payer OTHER ==
[~2023-01-06 08:39] MED LIST changes: -BRIL90TA; +BRIL90TA PO; +HYDR-4517 PO; -NITR0.4S14; +NITR0.4S14 PO; +NYST-38 PO; -ROSU40TA4; +ROSU40TA4 PO
[2023-01-07] MEDS ORDERED: MIRA3350 PO (21:30)
[2023-01-07] MEDS ORDERED: COLA100C5 PO (21:30)
[2023-01-07] MEDS ORDERED: METO1TAB7 PO (21:30)
[2023-01-09] MEDS ORDERED: CEPH500C PO (09:14)
[2023-01-09] MEDS ORDERED: BACI1CAP PO (09:14)
[2023-01-09] MEDS ORDERED: CIPR500T39 PO (09:59)
[2023-01-18] MEDS ORDERED: ZYTI250T PO ×2 (08:04→09:53)
[2023-01-18] MEDS ORDERED: GABA-282 (08:06)
[2023-01-18] MEDS ORDERED: PRED5TA PO (13:13)
[2023-01-18] MEDS ORDERED: PROC10TA5 PO (13:13)
[2023-01-19] MEDS ORDERED: PROC10TA5 PO (10:13)
[2023-01-19] MEDS ORDERED: PRED5TA PO (10:13)
[2023-01-21] MEDS ORDERED: NYST-38 PO (16:04)
[2023-01-25] MEDS ORDERED: ZYTI250T PO (11:38)
[2023-01-25] MEDS ORDERED: PREG150C PO (17:22)
== END 2023-01-26 ==
LOC: M ONCR 08:39
PROVIDERS: ATTEND General Practice
DX: C79.51 Secondary malignant neoplasm of bone (principal)

== ENCOUNTER 2023-01-07 18:16 | Inpatient (IN) | payer OTHER ==
[~2023-01-07] VITALS: Ht 182.9 cm; Wt 131.8 kg
[~2023-01-07 18:16] MED LIST changes: +NITR0.4S14; -NITR0.4S14 PO
[2023-01-07 19:31] LABS: HEMATOCRIT 41.9 % (42.0-52.0); HEMOGLOBIN 14.6 g/dl (13.5-17.5); MEAN CORPUSCULAR HEMOGLOBIN 30.2 pg (27.0-33.0); MEAN CORPUSCULAR HGB CONC 34.8 g/dl (32.0-36.5); MEAN CORPUSCULAR VOLUME 86.6 fl (80.0-96.0); PLATELET COUNT, AUTOMATED 277 10^3/uL (150-450); RED BLOOD COUNT 4.84 10^6/uL (4.30-6.10); WHITE BLOOD COUNT 2.9 10^3/uL (4.0-10.0)
[2023-01-07 19:45] LABS: INR 1.17; PROTHROMBIN TIME 15.1 SECONDS (12.5-14.5)
[2023-01-07 19:46] LABS: PARTIAL THROMBOPLASTIN TIME 32.7 SECONDS (24.8-34.2)
[2023-01-07 19:52] LABS: APPEARANCE, URINE HAZY (CLEAR); BACTERIA, URINE AUTO NEGATIVE (NEGATIVE); BILIRUBIN, URINE AUTO NEGATIVE (NEGATIVE); BLOOD, URINE BLOOD NEGATIVE (NEGATIVE); COLOR, URINE AMBER (YELLOW); GLUCOSE, URINE (UA) AUTO NEGATIVE (NEGATIVE); KETONE, URINE AUTO NEGATIVE (NEGATIVE); LEUKOCYTE ESTERASE, URINE AUTO NEGATIVE (NEGATIVE); MUCUS, URINE SMALL (NEGATIVE); NITRITE, URINE AUTO NEGATIVE (NEGATIVE); PROTEIN, URINE AUTO 2+ mg/dL (NEGATIVE); RBC, URINE AUTO 3 /HPF (0-3); SPECIFIC GRAVITY URINE AUTO 1.025 (1.002-1.035); SQUAMOUS EPITHELIAL CELL UR AU 0 /HPF (0-6); WBC, URINE AUTO 5 /HPF (0-3)
[2023-01-07 19:57] LABS: ALBUMIN 2.9 G/DL (3.2-5.2); ALKALINE PHOSPHATASE 72 U/L (46-116); ALT/SGPT 33 U/L (7.0-40); AST/SGOT 31 U/L (<34); BILIRUBIN,DIRECT 0.4 MG/DL (<0.4); BILIRUBIN,TOTAL 0.7 MG/DL (0.3-1.2); BLOOD UREA NITROGEN 13 MG/DL (9-23); CALCIUM LEVEL 8.3 MG/DL (8.3-10.6); CARBON DIOXIDE LEVEL 25 MMOL/L (20-31); CHLORIDE LEVEL 100 MMOL/L (98-107); CK-MB VALUE MASS < 1.0 NG/ML (<3.6); CPK CREATINE PHOSPHOKINASE 144 U/L (46-171); CREATININE FOR GFR 0.85 MG/DL (0.70-1.30); GLOMERULAR FILTRATION RATE > 60.0 (>49); GLUCOSE, FASTING 117 MG/DL (74-106); MB/CK RELATIVE INDEX 0.69 (< OR =4); POTASSIUM SERUM 3.2 MMOL/L (3.5-5.1); SODIUM LEVEL 134 MMOL/L (136-145); TOTAL PROTEIN 6.1 G/DL (5.7-8.2)
[2023-01-07 20:02] LABS: ATYPICAL LYMPH 3 % (0-5); BASOPHILS 5 % (0-1); EOSINOPHILS 1 % (0-3); LYMPHOCYTES 21 % (16-44); MONOCYTES 46 % (0-5); MYELOCYTES 2 % (0-0); NEUTROPHILS 22 % (28-66); PLATELET ESTIMATE NORMAL (NORMAL)
[2023-01-07] MEDS ORDERED: POTASSIUM CHLORIDE 10MEQ SR TABLET PO ONE (20:05)
[2023-01-07] MEDS ORDERED: cefTRIAXone SOD 2 GM in D5W MINI-BAG PLUS 50 ML IV ONE (20:10)
[2023-01-07] MEDS ORDERED: AZITHROMYCIN INJ 500 MG, VIAL MATE ADAPTER 1 EACH in NS 250 ML IV ONE (21:15)
[2023-01-07] MEDS ORDERED: HOME MED LIST COMPLETE! XX SCH (21:20)
[2023-01-07] MEDS ORDERED: METO1TAB7 PO (21:30)
[2023-01-07] MEDS ORDERED: COLA100C5 PO (21:30)
[2023-01-07] MEDS ORDERED: MIRA3350 PO (21:30)
[2023-01-07] MEDS ORDERED: IPRATROPIUM 0.5MG/ALBUTEROL 2.5MG INH SOL UD 3ML (DUONEB) INH PRN (21:35)
[2023-01-07] MEDS ORDERED: ACETAMINOPHEN TAB 650MG DOSE (2X325MG) PO PRN (21:35)
[2023-01-07] MEDS ORDERED: oxyCODONE 5MG TAB PO PRN (22:55)
[2023-01-07 23:14] VITALS: BP 116/75
[2023-01-08 02:00] VITALS: BP 115/68
[2023-01-08 05:58] VITALS: BP 117/64
[2023-01-08 06:54] LABS: HEMATOCRIT 41.6 % (42.0-52.0); MEAN CORPUSCULAR HEMOGLOBIN 29.5 pg (27.0-33.0); MEAN CORPUSCULAR HGB CONC 33.7 g/dl (32.0-36.5); MEAN CORPUSCULAR VOLUME 87.6 fl (80.0-96.0); PLATELET COUNT, AUTOMATED 277 10^3/uL (150-450); RED BLOOD COUNT 4.75 10^6/uL (4.30-6.10)
[2023-01-08 07:24] LABS: ALBUMIN 2.6 G/DL (3.2-5.2); ALKALINE PHOSPHATASE 66 U/L (46-116); ALT/SGPT 35 U/L (7.0-40); AST/SGOT 31 U/L (<34); BILIRUBIN,TOTAL 0.6 MG/DL (0.3-1.2); BLOOD UREA NITROGEN 10 MG/DL (9-23); CALCIUM LEVEL 8.3 MG/DL (8.3-10.6); CARBON DIOXIDE LEVEL 26 MMOL/L (20-31); CHLORIDE LEVEL 102 MMOL/L (98-107); CREATININE FOR GFR 0.77 MG/DL (0.70-1.30); GLOMERULAR FILTRATION RATE > 60.0 (>49); GLUCOSE, FASTING 91 MG/DL (74-106); POTASSIUM SERUM 3.5 MMOL/L (3.5-5.1); SODIUM LEVEL 135 MMOL/L (136-145); TOTAL PROTEIN 5.9 G/DL (5.7-8.2)
[2023-01-08 08:37] LABS: MONO SCRN NEGATIVE (NEGATIVE)
[2023-01-08] MEDS: TICAGRELOR 90 MG TABLET (BRILINTA) PO SCH ×2 (09:53→19:58)
[2023-01-08] MEDS: predniSONE 5 MG TAB PO SCH ×2 (09:53→19:58)
[2023-01-08] MEDS: ASPIRIN 81MG ENTERIC TABLET PO SCH (09:53)
[2023-01-08] MEDS: TORSEMIDE 10 MG TABLET PO SCH (09:53)
[2023-01-08] MEDS: ENOXAPARIN 40MG/0.4ML SYRINGE (J1650 PER 10MG) SC SCH (09:54)
[2023-01-08 10:00] VITALS: BP 119/73
[2023-01-08 14:00] VITALS: BP 117/78
[2023-01-08] MEDS ORDERED: predniSONE 5 MG TAB PO ONE (15:50)
[2023-01-08] MEDS: MIRALAX *UNIT DOSE* 17GM PACKET PO SCH (15:55)
[2023-01-08] MEDS: DOCUSATE SODIUM 100MG CAPSULE PO SCH (15:55)
[2023-01-08] MEDS ORDERED: AZITHROMYCIN 250MG TABLET PO SCH (18:00)
[2023-01-08] MEDS ORDERED: METOPROLOL SUCC (TopROL XL) 50MG **XL** TAB PO SCH (18:00)
[2023-01-08] MEDS ORDERED: ROSUVASTATIN 10 MG TAB (CRESTOR) PO SCH (18:00)
[2023-01-08] MEDS ORDERED: LOSARTAN 50MG TABLET PO SCH (18:00)
[2023-01-08 18:39] VITALS: BP 130/74
[2023-01-08 20:28] VITALS: BP 121/92
[2023-01-08] MEDS ORDERED: cefTRIAXone SOD 1 GM in D5W MINI-BAG PLUS 50 ML IV SCH (21:00)
[2023-01-08] MEDS ORDERED: predniSONE 5 MG TAB PO SCH (21:00)
[2023-01-09 05:53] VITALS: BP 123/90
[2023-01-09] MEDS ORDERED: ABIRATERONE 250 MG PO SCH (06:00)
[2023-01-09 07:50] LABS: HEMATOCRIT 42.9 % (42.0-52.0); HEMOGLOBIN 14.6 g/dl (13.5-17.5); MEAN CORPUSCULAR HEMOGLOBIN 29.5 pg (27.0-33.0); MEAN CORPUSCULAR VOLUME 86.7 fl (80.0-96.0); PLATELET COUNT, AUTOMATED 315 10^3/uL (150-450); RED BLOOD COUNT 4.95 10^6/uL (4.30-6.10); WHITE BLOOD COUNT 5.1 10^3/uL (4.0-10.0)
[2023-01-09 08:04] LABS: ERYTHROCYTE SEDIMENTATION RATE 100 mm/hr (0-20)
[2023-01-09 08:16] LABS: ALBUMIN 2.9 G/DL (3.2-5.2); ALKALINE PHOSPHATASE 81 U/L (46-116); ALT/SGPT 113 U/L (7.0-40); AST/SGOT 86 U/L (<34); BILIRUBIN,TOTAL 0.4 MG/DL (0.3-1.2); BLOOD UREA NITROGEN 12 MG/DL (9-23); CALCIUM LEVEL 8.8 MG/DL (8.3-10.6); CARBON DIOXIDE LEVEL 26 MMOL/L (20-31); CHLORIDE LEVEL 105 MMOL/L (98-107); CREATININE FOR GFR 0.68 MG/DL (0.70-1.30); GLOMERULAR FILTRATION RATE > 60.0 (>49); GLUCOSE, FASTING 103 MG/DL (74-106); POTASSIUM SERUM 3.4 MMOL/L (3.5-5.1); SODIUM LEVEL 139 MMOL/L (136-145); TOTAL PROTEIN 6.4 G/DL (5.7-8.2)
[2023-01-09 08:24] LABS: ATYPICAL LYMPH 8 % (0-5); LYMPHOCYTES 32 % (16-44); MONOCYTES 23 % (0-5); NEUTROPHILS 35 % (28-66); PLASMA CELL 1 % (0-0); PLATELET CLUMPS SMALL AMT; PLATELET ESTIMATE NORMAL (NORMAL)
[2023-01-09 08:25] LABS: POLYCHROMASIA 1+
[2023-01-09] MEDS: ENOXAPARIN 40MG/0.4ML SYRINGE (J1650 PER 10MG) SC SCH (09:00)
[2023-01-09] MEDS ORDERED: CEPH500C PO (09:14)
[2023-01-09] MEDS ORDERED: BACI1CAP PO (09:14)
[2023-01-09] MEDS ORDERED: POTASSIUM CHLORIDE 10MEQ SR TABLET PO ONE (09:30)
[2023-01-09] MEDS: predniSONE 5 MG TAB PO SCH (09:35)
[2023-01-09] MEDS: ASPIRIN 81MG ENTERIC TABLET PO SCH (09:35)
[2023-01-09] MEDS: TICAGRELOR 90 MG TABLET (BRILINTA) PO SCH (09:35)
[2023-01-09] MEDS: TORSEMIDE 10 MG TABLET PO SCH (09:35)
[2023-01-09] MEDS ORDERED: CIPR500T39 PO (09:59)
[2023-01-09] MEDS ORDERED: PROHANCE 279.3MG/ML 5ML VIAL As Ordered ONE (12:43)
[2023-01-09] MEDS ORDERED: PROHANCE 279.3MG/ML 15ML VIAL As Ordered ONE (12:43)
[2023-01-09 14:00] VITALS: BP 118/89
[2023-01-09] MEDS: MIRALAX *UNIT DOSE* 17GM PACKET PO SCH (15:00)
[2023-01-09] MEDS: DOCUSATE SODIUM 100MG CAPSULE PO SCH (15:00)
[2023-01-09] MEDS ORDERED: CIPROFLOXACIN 500MG TABLET PO ONE (17:00)
[2023-01-09] MEDS ORDERED: CEPHALEXIN 500 MG CAP PO ONE (17:00)
== END 2023-01-09 17:15 | disposition home or self-care (01) | DRG 383 ==
LOC: M ED 18:16 → M ED INP 21:34 → M MS5PR 23:45
PROVIDERS: ADMIT Internal Medicine; ATTEND General Practice
DX: L03.311 Cellulitis of abdominal wall (principal); C79.51 Secondary malignant neoplasm of bone; C61 Malignant neoplasm of prostate; E87.1 Hypo-osmolality and hyponatremia; R16.1 Splenomegaly, not elsewhere classified; E66.9 Obesity, unspecified; Z68.39 Body mass index [BMI] 39.0-39.9, adult; E87.6 Hypokalemia; N41.1 Chronic prostatitis; Z92.21 Personal history of antineoplastic chemotherapy; I10 Essential (primary) hypertension; Z88.8 Allergy status to other drugs, medicaments and biological substances; Z79.899 Other long term (current) drug therapy; Z79.82 Long term (current) use of aspirin; Z79.52 Long term (current) use of systemic steroids; I25.10 Atherosclerotic heart disease of native coronary artery without angina pectoris; Z95.2 Presence of prosthetic heart valve; Z87.891 Personal history of nicotine dependence; Z66 Do not resuscitate

== ENCOUNTER → 2023-01-13 | Outpatient (CLI) | payer OTHER ==
[~2023-01-13] VITALS: Ht 182.9 cm; Wt 134.0 kg
[~2023-01-13] MED LIST changes: +BACI1CAP PO; +CEPH500C PO; +CIPR500T39 PO; +COLA100C5 PO; +GABA-282; +METO1TAB7 PO; +MIRA3350 PO; +PREG150C PO
[2023-01-13 11:11] VITALS: BP 122/78
== END ==
LOC: M PAL 10:38
PROVIDERS: ATTEND Nurse Practitioner Adult Health
DX: C61 Malignant neoplasm of prostate (principal); C79.51 Secondary malignant neoplasm of bone; Z51.5 Encounter for palliative care; Z92.3 Personal history of irradiation; Z92.21 Personal history of antineoplastic chemotherapy; R19.7 Diarrhea, unspecified; N41.1 Chronic prostatitis; G89.3 Neoplasm related pain (acute) (chronic); G62.9 Polyneuropathy, unspecified; Z66 Do not resuscitate; Z87.891 Personal history of nicotine dependence; Z80.7 Family history of other malignant neoplasms of lymphoid, hematopoietic and related tissues; Z80.0 Family history of malignant neoplasm of digestive organs; I25.10 Atherosclerotic heart disease of native coronary artery without angina pectoris; Z95.5 Presence of coronary angioplasty implant and graft; I10 Essential (primary) hypertension; E78.5 Hyperlipidemia, unspecified; R73.03 Prediabetes; Z88.8 Allergy status to other drugs, medicaments and biological substances; Z79.899 Other long term (current) drug therapy; Z79.52 Long term (current) use of systemic steroids; Z79.891 Long term (current) use of opiate analgesic

== ENCOUNTER 2023-01-31 10:28 | Emergency (ER) | payer OTHER ==
[~2023-01-31] VITALS: Ht 182.9 cm; Wt 133.2 kg
[~2023-01-31 10:28] MED LIST changes: -NITR0.4S14; +NITR0.4S14 PO
[2023-01-31 12:32] LABS: HEMATOCRIT 39.6 % (42.0-52.0); MEAN CORPUSCULAR HEMOGLOBIN 29.1 pg (27.0-33.0); MEAN CORPUSCULAR HGB CONC 32.8 g/dl (32.0-36.5); MEAN CORPUSCULAR VOLUME 88.6 fl (80.0-96.0); PLATELET COUNT, AUTOMATED 205 10^3/uL (150-450); RED BLOOD COUNT 4.47 10^6/uL (4.30-6.10); WHITE BLOOD COUNT 7.5 10^3/uL (4.0-10.0)
[2023-01-31 12:36] LABS: APPEARANCE, URINE HAZY (CLEAR); BACTERIA, URINE AUTO NEGATIVE (NEGATIVE); BILIRUBIN, URINE AUTO NEGATIVE (NEGATIVE); BLOOD, URINE BLOOD NEGATIVE (NEGATIVE); COLOR, URINE AMBER (YELLOW); GLUCOSE, URINE (UA) AUTO NEGATIVE (NEGATIVE); KETONE, URINE AUTO NEGATIVE (NEGATIVE); LEUKOCYTE ESTERASE, URINE AUTO NEGATIVE (NEGATIVE); NITRITE, URINE AUTO NEGATIVE (NEGATIVE); PROTEIN, URINE AUTO 2+ mg/dL (NEGATIVE); RBC, URINE AUTO 0 /HPF (0-3); SPECIFIC GRAVITY URINE AUTO 1.021 (1.002-1.035); SQUAMOUS EPITHELIAL CELL UR AU 0 /HPF (0-6); WBC, URINE AUTO 2 /HPF (0-3)
[2023-01-31 13:01] LABS: INR 1.47; PROTHROMBIN TIME 18.1 SECONDS (12.5-14.5)
[2023-01-31 13:02] LABS: PARTIAL THROMBOPLASTIN TIME 36.8 SECONDS (24.8-34.2)
[2023-01-31 13:05] LABS: ALBUMIN 2.7 G/DL (3.2-5.2); ALKALINE PHOSPHATASE 371 U/L (46-116); ALT/SGPT 390 U/L (7.0-40); AST/SGOT 235 U/L (<34); BILIRUBIN,DIRECT 1.1 MG/DL (<0.4); BILIRUBIN,TOTAL 1.7 MG/DL (0.3-1.2); BLOOD UREA NITROGEN 11 MG/DL (9-23); CALCIUM LEVEL 7.8 MG/DL (8.3-10.6); CARBON DIOXIDE LEVEL 26 MMOL/L (20-31); CHLORIDE LEVEL 103 MMOL/L (98-107); CREATININE FOR GFR 0.94 MG/DL (0.70-1.30); GLOMERULAR FILTRATION RATE > 60.0 (>49); GLUCOSE, FASTING 100 MG/DL (74-106); POTASSIUM SERUM 3.7 MMOL/L (3.5-5.1); SODIUM LEVEL 135 MMOL/L (136-145); TOTAL PROTEIN 6.1 G/DL (5.7-8.2)
[2023-01-31 13:06] LABS: AMYLASE < 20 U/L (30-118)
[2023-01-31 13:07] LABS: ATYPICAL LYMPH 6 % (0-5); LYMPHOCYTES 10 % (16-44); MONOCYTES 15 % (0-5); NEUTROPHILS 67 % (28-66); PLATELET ESTIMATE NORMAL (NORMAL)
[2023-01-31] MEDS ORDERED: ISOVUE-370 76% 100ML VIAL As Ordered ONE (13:36)
[2023-01-31 14:18] LABS: LIPASE 21 U/L (12-53)
[2023-01-31] MEDS ORDERED: PIPERACILLIN/TAZOBACTAM SOD 4.5 GM in D5W MINI-BAG PLUS 50 ML IV ONE (15:40)
[2023-01-31] MEDS ORDERED: PIPERACILLIN/TAZOBACTAM SOD 3.375 GM in D5W MINI-BAG PLUS 50 ML IV ONE (15:45)
[2023-01-31] MEDS ORDERED: HOME MED LIST COMPLETE! XX SCH (16:35)
[2023-01-31 17:45] VITALS: BP 132/85
[2023-01-31] MEDS ORDERED: SODIUM CHLORIDE 0.9% INJ 10 ML SYR IV PRN (17:45)
[2023-02-01] MEDS ORDERED: SODIUM CHLORIDE 0.9% INJ 10 ML SYR IV SCH (09:00)
== END 2023-01-31 18:40 | disposition left against medical advice (07) ==
LOC: M ED 10:28
DX: C61 Malignant neoplasm of prostate (principal); C79.51 Secondary malignant neoplasm of bone; R50.9 Fever, unspecified; I44.4 Left anterior fascicular block; I25.2 Old myocardial infarction; Z87.891 Personal history of nicotine dependence; Z86.79 Personal history of other diseases of the circulatory system; Z88.8 Allergy status to other drugs, medicaments and biological substances; Z79.899 Other long term (current) drug therapy; Z79.83 Long term (current) use of bisphosphonates; Z79.82 Long term (current) use of aspirin; Z53.9 Procedure and treatment not carried out, unspecified reason
CPT/HCPCS: 36415; 71045; 71275; 74177; 76705; 80047; 80048; 80076; 81001; 82150; 83605; 83690; 84145; 85025; 85610; 85730; 86140; 87040; 87086; 87486; 87581; 87633; 87798; 93005; 93041; 94760; 99285; J2543; Q9967

== ENCOUNTER → 2023-02-15 | Outpatient (CLI) | payer OTHER ==
[~2023-02-15] MED LIST changes: +LEVO1TAB40 PO
== END ==
LOC: M PAL 13:58
PROVIDERS: ATTEND Nurse Practitioner Adult Health
DX: C61 Malignant neoplasm of prostate (principal); C79.51 Secondary malignant neoplasm of bone; Z51.5 Encounter for palliative care; Z92.21 Personal history of antineoplastic chemotherapy; Z92.3 Personal history of irradiation; G89.3 Neoplasm related pain (acute) (chronic); G62.0 Drug-induced polyneuropathy; L85.3 Xerosis cutis; Z66 Do not resuscitate; F17.210 Nicotine dependence, cigarettes, uncomplicated; Z80.7 Family history of other malignant neoplasms of lymphoid, hematopoietic and related tissues; Z88.8 Allergy status to other drugs, medicaments and biological substances; Z79.52 Long term (current) use of systemic steroids; Z79.899 Other long term (current) drug therapy

== ENCOUNTER → 2023-04-07 | Outpatient (CLI) | payer OTHER ==
[~2023-04-07] MED LIST changes: +MICOCRE TOP
== END ==
LOC: M ONCR 13:19
PROVIDERS: ATTEND General Practice
DX: C61 Malignant neoplasm of prostate (principal); C79.51 Secondary malignant neoplasm of bone; F17.210 Nicotine dependence, cigarettes, uncomplicated; G62.0 Drug-induced polyneuropathy; M54.50 Low back pain, unspecified; Z79.82 Long term (current) use of aspirin; Z79.899 Other long term (current) drug therapy; Z86.59 Personal history of other mental and behavioral disorders; Z88.8 Allergy status to other drugs, medicaments and biological substances; Z92.3 Personal history of irradiation

== ENCOUNTER → 2023-04-27 | Outpatient (CLI) | payer OTHER ==
[~2023-04-27] VITALS: Ht 182.9 cm; Wt 135.7 kg
[2023-04-27 08:01] VITALS: BP 101/62; TEMP 96.3; O2SAT 98
== END ==
LOC: M PAL 07:51
PROVIDERS: ATTEND Nurse Practitioner Adult Health
DX: C61 Malignant neoplasm of prostate (principal); C79.51 Secondary malignant neoplasm of bone; Z51.5 Encounter for palliative care; G89.3 Neoplasm related pain (acute) (chronic); K13.0 Diseases of lips; G62.0 Drug-induced polyneuropathy; L85.3 Xerosis cutis; R13.10 Dysphagia, unspecified; R53.83 Other fatigue; Z66 Do not resuscitate; F17.210 Nicotine dependence, cigarettes, uncomplicated; Z80.7 Family history of other malignant neoplasms of lymphoid, hematopoietic and related tissues; Z79.52 Long term (current) use of systemic steroids; Z79.82 Long term (current) use of aspirin; Z79.899 Other long term (current) drug therapy; Z88.8 Allergy status to other drugs, medicaments and biological substances; Z92.21 Personal history of antineoplastic chemotherapy; Z92.3 Personal history of irradiation

== ENCOUNTER → 2023-04-28 | Outpatient (RCR) | payer OTHER ==
[~2023-04-28] MED LIST changes: -PREG150C PO; +PREG150C2 PO
== END ==
LOC: M ONCR 04-20 10:13
PROVIDERS: ATTEND General Practice
DX: Z51.0 Encounter for antineoplastic radiation therapy (principal); C79.51 Secondary malignant neoplasm of bone; C61 Malignant neoplasm of prostate

== ENCOUNTER → 2023-06-08 | Outpatient (CLI) | payer OTHER ==
[~2023-06-08] VITALS: Ht 182.9 cm; Wt 141.5 kg
[~2023-06-08] MED LIST changes: +LYRI200C PO; +PREG50CA PO
[2023-06-08 08:01] VITALS: BP 114/67; O2SAT 95
== END ==
LOC: M PAL 07:50
PROVIDERS: ATTEND Nurse Practitioner Adult Health
DX: C61 Malignant neoplasm of prostate (principal); C79.51 Secondary malignant neoplasm of bone; G62.0 Drug-induced polyneuropathy; G89.3 Neoplasm related pain (acute) (chronic); F17.210 Nicotine dependence, cigarettes, uncomplicated; K08.89 Other specified disorders of teeth and supporting structures; L60.1 Onycholysis; R60.0 Localized edema; Z51.5 Encounter for palliative care; Z66 Do not resuscitate; Z80.7 Family history of other malignant neoplasms of lymphoid, hematopoietic and related tissues; Z79.52 Long term (current) use of systemic steroids; Z79.82 Long term (current) use of aspirin; Z79.899 Other long term (current) drug therapy; Z88.8 Allergy status to other drugs, medicaments and biological substances; Z92.21 Personal history of antineoplastic chemotherapy; Z92.3 Personal history of irradiation

== ENCOUNTER → 2023-07-06 | Outpatient (REF) | payer OTHER | LOC: M SFHCPLAZ 09:44 | PROVIDERS: ATTEND Student in an Organized Health Care Education/Training Program | DX: Z12.11 Encounter for screening for malignant neoplasm of colon (principal) ==

== ENCOUNTER → 2023-07-13 | Outpatient (CLI) | payer OTHER | LOC: M PAL 08:00 | PROVIDERS: ATTEND Nurse Practitioner Adult Health | DX: C61 Malignant neoplasm of prostate (principal); C79.51 Secondary malignant neoplasm of bone; G62.0 Drug-induced polyneuropathy; G89.3 Neoplasm related pain (acute) (chronic); F17.210 Nicotine dependence, cigarettes, uncomplicated; K08.89 Other specified disorders of teeth and supporting structures; L60.1 Onycholysis; R60.0 Localized edema; Z51.5 Encounter for palliative care; Z66 Do not resuscitate; Z79.01 Long term (current) use of anticoagulants; Z79.52 Long term (current) use of systemic steroids; Z79.82 Long term (current) use of aspirin; Z79.891 Long term (current) use of opiate analgesic; Z79.899 Other long term (current) drug therapy; Z80.7 Family history of other malignant neoplasms of lymphoid, hematopoietic and related tissues; Z88.8 Allergy status to other drugs, medicaments and biological substances; Z92.21 Personal history of antineoplastic chemotherapy; Z92.3 Personal history of irradiation ==

== ENCOUNTER → 2023-07-14 | Outpatient (REF) | payer OTHER ==
[2023-07-14 17:52] LABS: HEMOGLOBIN 13.4 g/dl (13.5-17.5); MEAN CORPUSCULAR HEMOGLOBIN 32.3 pg (27.0-33.0); MEAN CORPUSCULAR HGB CONC 32.7 g/dl (32.0-36.5); MEAN CORPUSCULAR VOLUME 98.8 fl (80.0-96.0); PLATELET COUNT, AUTOMATED 265 10^3/uL (150-450); RED BLOOD COUNT 4.15 10^6/uL (4.30-6.10)
[2023-07-14 18:02] LABS: ALBUMIN 3.6 G/DL (3.2-5.2); ALKALINE PHOSPHATASE 53 U/L (46-116); ALT/SGPT 16 U/L (7.0-40); AST/SGOT 12 U/L (<34); BILIRUBIN,TOTAL 0.5 MG/DL (0.3-1.2); BLOOD UREA NITROGEN 12 MG/DL (9-23); CALCIUM LEVEL 9.3 MG/DL (8.3-10.6); CARBON DIOXIDE LEVEL 34 MMOL/L (20-31); CHLORIDE LEVEL 101 MMOL/L (98-107); CREATININE FOR GFR 0.89 MG/DL (0.70-1.30); GLOMERULAR FILTRATION RATE > 60.0 (>49); GLUCOSE, FASTING 86 MG/DL (74-106); POTASSIUM SERUM 3.9 MMOL/L (3.5-5.1); SODIUM LEVEL 140 MMOL/L (136-145); TOTAL PROTEIN 6.9 G/DL (5.7-8.2)
== END ==
LOC: M LABDRAWP 16:51
PROVIDERS: ATTEND Nurse Practitioner Family
DX: I25.5 Ischemic cardiomyopathy (principal)

== ENCOUNTER → 2023-07-18 | Outpatient (CLI) | payer OTHER ==
[~2023-07-18] MED LIST changes: +GASTROGRAFIN SOLUTION 30ML ONE; +ISOVUE-370 76% 100ML VIAL ONE
== END ==
LOC: M PLAIMG 09:19
PROVIDERS: ATTEND Specialist
DX: C61 Malignant neoplasm of prostate (principal)
CPT/HCPCS: 71260; 74177; Q9963; Q9967

== ENCOUNTER → 2023-07-28 | Outpatient (CLI) | payer OTHER ==
[~2023-07-28] MED LIST changes: -GASTROGRAFIN SOLUTION 30ML ONE; -ISOVUE-370 76% 100ML VIAL ONE
== END ==
LOC: M ONCR 12:42
PROVIDERS: ATTEND General Practice
DX: C79.51 Secondary malignant neoplasm of bone (principal); C61 Malignant neoplasm of prostate; Z71.2 Person consulting for explanation of examination or test findings; R97.21 Rising PSA following treatment for malignant neoplasm of prostate; F17.210 Nicotine dependence, cigarettes, uncomplicated; Z79.52 Long term (current) use of systemic steroids; Z79.818 Long term (current) use of other agents affecting estrogen receptors and estrogen levels; Z79.82 Long term (current) use of aspirin; Z79.891 Long term (current) use of opiate analgesic; Z79.899 Other long term (current) drug therapy; Z88.8 Allergy status to other drugs, medicaments and biological substances; Z92.21 Personal history of antineoplastic chemotherapy; Z92.3 Personal history of irradiation

== ENCOUNTER → 2023-08-18 | Outpatient (CLI) | payer OTHER ==
[2023-08-18 14:53] LABS: HEMOGLOBIN A1c 6.4 % (4.0-6.0)
== END ==
LOC: M PLALAB 09:53
PROVIDERS: ATTEND Student in an Organized Health Care Education/Training Program
DX: Z00.00 Encounter for general adult medical examination without abnormal findings (principal); Z13.1 Encounter for screening for diabetes mellitus

== ENCOUNTER 2023-08-19 08:48 | Outpatient (RCR) | payer OTHER ==
[2023-08-19] MEDS ORDERED: HYDR-4517 PO (14:35)
[2023-08-19] MEDS ORDERED: LYRI200C PO (14:35)
== END 2023-08-28 ==
LOC: M ONCR 08:48
PROVIDERS: ATTEND General Practice
DX: Z51.0 Encounter for antineoplastic radiation therapy (principal); C79.51 Secondary malignant neoplasm of bone

== ENCOUNTER → 2023-08-24 | Outpatient (CLI) | payer OTHER ==
[~2023-08-24] VITALS: Ht 182.9 cm; Wt 146.4 kg
[2023-08-24 08:11] VITALS: BP 136/84; O2SAT 96
== END ==
LOC: M PAL 08-19 08:48
PROVIDERS: ATTEND Nurse Practitioner Adult Health
DX: G89.3 Neoplasm related pain (acute) (chronic) (principal); G62.0 Drug-induced polyneuropathy; C61 Malignant neoplasm of prostate; C79.51 Secondary malignant neoplasm of bone; R60.0 Localized edema; F17.210 Nicotine dependence, cigarettes, uncomplicated; K08.89 Other specified disorders of teeth and supporting structures; L60.1 Onycholysis; Z51.5 Encounter for palliative care; Z66 Do not resuscitate; Z79.01 Long term (current) use of anticoagulants; Z79.52 Long term (current) use of systemic steroids; Z79.82 Long term (current) use of aspirin; Z79.891 Long term (current) use of opiate analgesic; Z79.899 Other long term (current) drug therapy; Z80.7 Family history of other malignant neoplasms of lymphoid, hematopoietic and related tissues; Z88.8 Allergy status to other drugs, medicaments and biological substances; Z92.21 Personal history of antineoplastic chemotherapy; Z92.3 Personal history of irradiation

== ENCOUNTER → 2023-10-04 | Outpatient (CLI) | payer OTHER ==
[~2023-10-04] VITALS: Ht 182.9 cm; Wt 151.2 kg
[~2023-10-04] MED LIST changes: +HYDR-3713 PO
[2023-10-04 08:11] VITALS: BP 104/66; O2SAT 96
== END ==
LOC: M PAL 07:58
PROVIDERS: ATTEND Nurse Practitioner Adult Health
DX: G89.3 Neoplasm related pain (acute) (chronic) (principal); G62.9 Polyneuropathy, unspecified; M25.511 Pain in right shoulder; C61 Malignant neoplasm of prostate; C79.51 Secondary malignant neoplasm of bone; R60.0 Localized edema; F17.210 Nicotine dependence, cigarettes, uncomplicated; K08.89 Other specified disorders of teeth and supporting structures; L60.1 Onycholysis; Z51.5 Encounter for palliative care; Z66 Do not resuscitate; Z80.7 Family history of other malignant neoplasms of lymphoid, hematopoietic and related tissues; Z79.891 Long term (current) use of opiate analgesic; Z79.52 Long term (current) use of systemic steroids; Z79.82 Long term (current) use of aspirin; Z79.899 Other long term (current) drug therapy; Z88.8 Allergy status to other drugs, medicaments and biological substances; Z92.21 Personal history of antineoplastic chemotherapy; Z92.3 Personal history of irradiation

== ENCOUNTER 2023-10-14 00:43 | Emergency (ER) | payer OTHER ==
[2023-10-14 01:19] LABS: BASO % 0.6 % (0.0-1.0); EOS # 0.2 10^3/uL (0.0-0.5); EOS % 3.3 % (0.0-3.0); HEMATOCRIT 40.5 % (42.0-52.0); HEMOGLOBIN 13.3 g/dl (13.5-17.5); LYMPH # 0.4 10^3/uL (1.5-5.0); MEAN CORPUSCULAR HEMOGLOBIN 31.1 pg (27.0-33.0); MEAN CORPUSCULAR HGB CONC 32.8 g/dl (32.0-36.5); MEAN CORPUSCULAR VOLUME 94.8 fl (80.0-96.0); MONO # 0.3 10^3/uL (0.0-0.8); MONO % 5.2 % (2.0-8.0); NEUTROPHILS # 5.3 10^3/uL (1.5-8.5); NEUTROPHILS % 84.3 % (36.0-66.0); PLATELET COUNT, AUTOMATED 196 10^3/uL (150-450); RED BLOOD COUNT 4.27 10^6/uL (4.30-6.10); WHITE BLOOD COUNT 6.3 10^3/uL (4.0-10.0)
[2023-10-14 01:30] VITALS: BP 120/58; TEMP 97.6; O2SAT 95
[2023-10-14 01:37] LABS: LIPASE 22 U/L (12-53)
[2023-10-14 01:39] LABS: ALBUMIN 3.5 G/DL (3.2-5.2); ALKALINE PHOSPHATASE 58 U/L (46-116); ALT/SGPT 14 U/L (7.0-40); AST/SGOT 18 U/L (<34); BILIRUBIN,DIRECT 0.1 MG/DL (<0.4); BILIRUBIN,TOTAL 0.4 MG/DL (0.3-1.2); BLOOD UREA NITROGEN 18 MG/DL (9-23); CALCIUM LEVEL 8.6 MG/DL (8.3-10.6); CARBON DIOXIDE LEVEL 30 MMOL/L (20-31); CHLORIDE LEVEL 106 MMOL/L (98-107); CREATININE FOR GFR 0.82 MG/DL (0.70-1.30); GLOMERULAR FILTRATION RATE > 60.0 (>49); GLUCOSE, FASTING 119 MG/DL (74-106); POTASSIUM SERUM 4.1 MMOL/L (3.5-5.1); SODIUM LEVEL 140 MMOL/L (136-145); TOTAL PROTEIN 6.6 G/DL (5.7-8.2)
[2023-10-14 01:41] LABS: INR 1.02; PARTIAL THROMBOPLASTIN TIME 30.4 SECONDS (24.8-34.2); PROTHROMBIN TIME 13.1 SECONDS (12.5-14.5)
[2023-10-14 01:42] LABS: CK-MB VALUE MASS < 1.0 NG/ML (<3.6)
[2023-10-14 02:12] LABS: CPK CREATINE PHOSPHOKINASE 67 U/L (46-171); MB/CK RELATIVE INDEX 1.49 (< OR =4)
[2023-10-14] MEDS ORDERED: ISOVUE-370 76% 100ML VIAL As Ordered ONE (02:54)
[2023-10-14 03:17] LABS: CK-MB VALUE MASS < 1.0 NG/ML (<3.6); CPK CREATINE PHOSPHOKINASE 63 U/L (46-171); MB/CK RELATIVE INDEX 1.58 (< OR =4)
[2023-10-14] MEDS: ACETAMINOPHEN TAB 650MG DOSE (2X325MG) PO ONE (03:17)
[2023-10-14 05:58] VITALS: O2SAT 93
== END 2023-10-14 07:22 | disposition home or self-care (01) ==
LOC: M ED 00:43 → EDBD 00:43 → M ED 07:22
DX: U07.1 COVID-19 (principal); I10 Essential (primary) hypertension; I44.4 Left anterior fascicular block; I50.22 Chronic systolic (congestive) heart failure; Z86.79 Personal history of other diseases of the circulatory system; Z87.891 Personal history of nicotine dependence; Z88.8 Allergy status to other drugs, medicaments and biological substances; Z79.52 Long term (current) use of systemic steroids; Z79.811 Long term (current) use of aromatase inhibitors; Z79.82 Long term (current) use of aspirin; Z79.899 Other long term (current) drug therapy
CPT/HCPCS: 36415; 71275; 80048; 80076; 81001; 82550; 82553; 83605; 83690; 85025; 85610; 85730; 87040; 87486; 87581; 87633; 87798; 93005; 93041; 99284; Q9967

== ENCOUNTER → 2023-11-10 | Outpatient (CLI) | payer OTHER ==
[~2023-11-10] MED LIST changes: +ABIR500T PO
== END ==
LOC: M SOG 07:59
PROVIDERS: ATTEND Orthopaedic Surgery
DX: M19.011 Primary osteoarthritis, right shoulder (principal); M47.892 Other spondylosis, cervical region

== ENCOUNTER → 2023-11-22 | Outpatient (CLI) | payer OTHER ==
[~2023-11-22] MED LIST changes: +SEMA1PEN2 SQ
== END ==
LOC: M ONCR 09:23
PROVIDERS: ATTEND General Practice
DX: C61 Malignant neoplasm of prostate (principal); F17.210 Nicotine dependence, cigarettes, uncomplicated; M54.12 Radiculopathy, cervical region; Z79.52 Long term (current) use of systemic steroids; Z79.82 Long term (current) use of aspirin; Z79.85 Long-term (current) use of injectable non-insulin antidiabetic drugs; Z79.899 Other long term (current) drug therapy; Z86.59 Personal history of other mental and behavioral disorders; Z92.3 Personal history of irradiation

== ENCOUNTER → 2023-12-06 | Outpatient (CLI) | payer OTHER ==
[~2023-12-06] VITALS: Ht 182.9 cm; Wt 157.1 kg
[2023-12-06 08:13] VITALS: BP 132/79; O2SAT 95
== END ==
LOC: M PAL 07:47
PROVIDERS: ATTEND Nurse Practitioner Adult Health
DX: G89.3 Neoplasm related pain (acute) (chronic) (principal); G62.9 Polyneuropathy, unspecified; M25.511 Pain in right shoulder; R63.5 Abnormal weight gain; C61 Malignant neoplasm of prostate; C79.51 Secondary malignant neoplasm of bone; R60.0 Localized edema; F17.210 Nicotine dependence, cigarettes, uncomplicated; K08.89 Other specified disorders of teeth and supporting structures; L60.1 Onycholysis; Z51.5 Encounter for palliative care; Z66 Do not resuscitate; Z80.7 Family history of other malignant neoplasms of lymphoid, hematopoietic and related tissues; Z79.891 Long term (current) use of opiate analgesic; Z79.52 Long term (current) use of systemic steroids; Z79.82 Long term (current) use of aspirin; Z79.85 Long-term (current) use of injectable non-insulin antidiabetic drugs; Z79.899 Other long term (current) drug therapy; Z88.8 Allergy status to other drugs, medicaments and biological substances; Z92.21 Personal history of antineoplastic chemotherapy; Z92.3 Personal history of irradiation

== ENCOUNTER → 2023-12-16 | Outpatient (CLI) | payer OTHER ==
[~2023-12-16] MED LIST changes: +GASTROGRAFIN SOLUTION 30ML As Ordered ONE
== END ==
LOC: M RAD 08:47
PROVIDERS: ATTEND General Practice
DX: C79.51 Secondary malignant neoplasm of bone (principal)
CPT/HCPCS: 71250; 74176; Q9963

== ENCOUNTER → 2023-12-23 | Outpatient (CLI) | payer OTHER ==
[~2023-12-23] MED LIST changes: -GASTROGRAFIN SOLUTION 30ML As Ordered ONE; +XENI120C23 PO
== END ==
LOC: M ONCR 09:41
PROVIDERS: ATTEND General Practice
DX: C79.51 Secondary malignant neoplasm of bone (principal); C61 Malignant neoplasm of prostate; E66.1 Drug-induced obesity; F17.210 Nicotine dependence, cigarettes, uncomplicated; Z59.7 Insufficient social insurance and welfare support; Z71.2 Person consulting for explanation of examination or test findings; Z79.52 Long term (current) use of systemic steroids; Z79.82 Long term (current) use of aspirin; Z79.818 Long term (current) use of other agents affecting estrogen receptors and estrogen levels; Z79.899 Other long term (current) drug therapy; Z86.59 Personal history of other mental and behavioral disorders; Z88.8 Allergy status to other drugs, medicaments and biological substances; Z92.3 Personal history of irradiation

== ENCOUNTER → 2024-02-08 | Outpatient (CLI) | payer OTHER ==
[~2024-02-08] VITALS: Ht 182.9 cm; Wt 158.3 kg
[~2024-02-08] MED LIST changes: +ONDA-284 PO; -ONDA8TAB8 PO; -ROSU40TA4 PO; +ROSU40TA63 PO
[2024-02-08 08:10] VITALS: BP 152/88; O2SAT 96
== END ==
LOC: M PAL 07:47
PROVIDERS: ATTEND Nurse Practitioner Adult Health
DX: G89.3 Neoplasm related pain (acute) (chronic) (principal); G62.9 Polyneuropathy, unspecified; M25.511 Pain in right shoulder; R63.5 Abnormal weight gain; C61 Malignant neoplasm of prostate; C79.51 Secondary malignant neoplasm of bone; R60.0 Localized edema; F17.210 Nicotine dependence, cigarettes, uncomplicated; K08.89 Other specified disorders of teeth and supporting structures; L60.1 Onycholysis; Z51.5 Encounter for palliative care; Z66 Do not resuscitate; Z80.7 Family history of other malignant neoplasms of lymphoid, hematopoietic and related tissues; Z79.891 Long term (current) use of opiate analgesic; Z79.82 Long term (current) use of aspirin; Z79.52 Long term (current) use of systemic steroids; Z79.85 Long-term (current) use of injectable non-insulin antidiabetic drugs; Z79.899 Other long term (current) drug therapy; Z88.8 Allergy status to other drugs, medicaments and biological substances; Z92.21 Personal history of antineoplastic chemotherapy; Z92.3 Personal history of irradiation

== ENCOUNTER → 2024-03-23 | Outpatient (CLI) | payer OTHER ==
[~2024-03-23] MED LIST changes: +METF500T13 PO; -ROSU40TA63 PO; +ROSU40TA81 PO; +SEMA0.257 SQ
== END ==
LOC: M ONCR 09:30
PROVIDERS: ATTEND General Practice
DX: C61 Malignant neoplasm of prostate (principal); C79.51 Secondary malignant neoplasm of bone; R73.09 Other abnormal glucose; Z79.810 Long term (current) use of selective estrogen receptor modulators (SERMs); Z88.8 Allergy status to other drugs, medicaments and biological substances

== ENCOUNTER → 2024-03-27 | Outpatient (CLI) | payer OTHER ==
[~2024-03-27] MED LIST changes: +ROSU40TA63 PO; -ROSU40TA81 PO
== END ==
LOC: M ONCM 07:00
PROVIDERS: ATTEND Dietitian, Registered
DX: C61 Malignant neoplasm of prostate (principal); Z71.3 Dietary counseling and surveillance; Z68.42 Body mass index [BMI] 45.0-49.9, adult

== ENCOUNTER → 2024-04-10 | Outpatient (CLI) | payer OTHER ==
[~2024-04-10] VITALS: Ht 182.9 cm; Wt 156.0 kg
[~2024-04-10] MED LIST changes: -ROSU40TA63 PO; +ROSU40TA81 PO
[2024-04-10 09:19] VITALS: BP 168/96; O2SAT 96
== END ==
LOC: M PAL 08:41
PROVIDERS: ATTEND Nurse Practitioner Adult Health
DX: G89.3 Neoplasm related pain (acute) (chronic) (principal); G62.9 Polyneuropathy, unspecified; M25.511 Pain in right shoulder; R63.5 Abnormal weight gain; C61 Malignant neoplasm of prostate; C79.51 Secondary malignant neoplasm of bone; R60.0 Localized edema; F17.210 Nicotine dependence, cigarettes, uncomplicated; K08.89 Other specified disorders of teeth and supporting structures; L60.1 Onycholysis; Z51.5 Encounter for palliative care; R29.6 Repeated falls; Z66 Do not resuscitate; Z80.7 Family history of other malignant neoplasms of lymphoid, hematopoietic and related tissues; Z79.52 Long term (current) use of systemic steroids; Z79.82 Long term (current) use of aspirin; Z79.84 Long term (current) use of oral hypoglycemic drugs; Z79.85 Long-term (current) use of injectable non-insulin antidiabetic drugs; Z79.891 Long term (current) use of opiate analgesic; Z79.899 Other long term (current) drug therapy; Z88.8 Allergy status to other drugs, medicaments and biological substances; Z92.21 Personal history of antineoplastic chemotherapy; Z92.3 Personal history of irradiation

== ENCOUNTER → 2024-06-12 | Outpatient (CLI) | payer OTHER ==
[~2024-06-12] VITALS: Ht 182.9 cm; Wt 158.2 kg
[~2024-06-12] MED LIST changes: +GABA-1172; -GABA-282
[2024-06-12 09:32] VITALS: BP 148/91; O2SAT 95
== END ==
LOC: M PAL 09:23
PROVIDERS: ATTEND Nurse Practitioner Adult Health
DX: G89.3 Neoplasm related pain (acute) (chronic) (principal); G62.9 Polyneuropathy, unspecified; C61 Malignant neoplasm of prostate; C79.51 Secondary malignant neoplasm of bone; M25.511 Pain in right shoulder; R63.5 Abnormal weight gain; R60.0 Localized edema; L85.3 Xerosis cutis; F17.210 Nicotine dependence, cigarettes, uncomplicated; K08.89 Other specified disorders of teeth and supporting structures; L60.1 Onycholysis; R29.6 Repeated falls; Z51.5 Encounter for palliative care; Z66 Do not resuscitate; Z80.7 Family history of other malignant neoplasms of lymphoid, hematopoietic and related tissues; Z79.52 Long term (current) use of systemic steroids; Z79.82 Long term (current) use of aspirin; Z79.85 Long-term (current) use of injectable non-insulin antidiabetic drugs; Z79.818 Long term (current) use of other agents affecting estrogen receptors and estrogen levels; Z79.891 Long term (current) use of opiate analgesic; Z79.899 Other long term (current) drug therapy; Z88.8 Allergy status to other drugs, medicaments and biological substances; Z92.21 Personal history of antineoplastic chemotherapy; Z92.3 Personal history of irradiation

== ENCOUNTER → 2024-06-26 | Outpatient (CLI) | payer OTHER ==
[2024-06-26 09:24] LABS: BASO # 0.1 10^3/uL (0.0-0.2); BASO % 0.5 % (0.0-1.0); EOS # 0.2 10^3/uL (0.0-0.5); EOS % 2.1 % (0.0-3.0); HEMATOCRIT 43.5 % (42.0-52.0); HEMOGLOBIN 14.3 g/dl (13.5-17.5); LYMPH # 0.6 10^3/uL (1.5-5.0); LYMPH % 6.1 % (24.0-44.0); MEAN CORPUSCULAR HEMOGLOBIN 30.1 pg (27.0-33.0); MEAN CORPUSCULAR HGB CONC 32.9 g/dl (32.0-36.5); MEAN CORPUSCULAR VOLUME 91.6 fl (80.0-96.0); MONO # 0.6 10^3/uL (0.0-0.8); MONO % 6.4 % (2.0-8.0); NEUTROPHILS # 7.9 10^3/uL (1.5-8.5); NEUTROPHILS % 84.6 % (36.0-66.0); PLATELET COUNT, AUTOMATED 213 10^3/uL (150-450); RED BLOOD COUNT 4.75 10^6/uL (4.30-6.10); WHITE BLOOD COUNT 9.3 10^3/uL (4.0-10.0)
[2024-06-26 10:00] LABS: HEMOGLOBIN A1c 6.3 % (4.0-6.0)
[2024-06-26 10:04] LABS: ALBUMIN 3.4 G/DL (3.2-5.2); ALKALINE PHOSPHATASE 69 U/L (40-129); ALT/SGPT 17 U/L (7.0-40); AST/SGOT 13 U/L (<34); BILIRUBIN,TOTAL 0.6 MG/DL (0.3-1.2); BLOOD UREA NITROGEN 16 MG/DL (9-23); CALCIUM LEVEL 9.5 MG/DL (8.3-10.6); CARBON DIOXIDE LEVEL 29 MMOL/L (20-31); CHLORIDE LEVEL 106 MMOL/L (98-107); CREATININE FOR GFR 0.88 MG/DL (0.70-1.30); GLOMERULAR FILTRATION RATE > 60.0 (>49); GLUCOSE, FASTING 122 MG/DL (74-106); SODIUM LEVEL 140 MMOL/L (136-145); TOTAL PROTEIN 6.9 G/DL (5.7-8.2)
== END ==
LOC: M ONCR 08:53
PROVIDERS: ATTEND General Practice
DX: C79.51 Secondary malignant neoplasm of bone (principal); C61 Malignant neoplasm of prostate; Z79.818 Long term (current) use of other agents affecting estrogen receptors and estrogen levels; Z79.52 Long term (current) use of systemic steroids; F17.210 Nicotine dependence, cigarettes, uncomplicated; Z88.1 Allergy status to other antibiotic agents; Z79.85 Long-term (current) use of injectable non-insulin antidiabetic drugs; Z79.82 Long term (current) use of aspirin; Z79.899 Other long term (current) drug therapy; Z92.3 Personal history of irradiation
CPT/HCPCS: 36415; 80053; 83036; 84153; 85025; G0463

== ENCOUNTER → 2024-07-03 | Outpatient (CLI) | payer OTHER | LOC: M RAD 13:23 | PROVIDERS: ATTEND General Practice | DX: C79.51 Secondary malignant neoplasm of bone (principal); K40.20 Bilateral inguinal hernia, without obstruction or gangrene, not specified as recurrent ==

== ENCOUNTER → 2024-07-25 | Outpatient (REF) | payer OTHER ==
[2024-07-25 14:49] LABS: CHOLESTEROL RISK RATIO 2.3 (<5); HDL CHOLESTEROL 48.6 MG/DL (>40); NON-HDL-C 63.4 MG/DL
== END ==
LOC: M LAB REF 13:09
PROVIDERS: ATTEND Student in an Organized Health Care Education/Training Program
DX: E78.5 Hyperlipidemia, unspecified (principal)

== ENCOUNTER → 2024-08-15 | Outpatient (CLI) | payer OTHER ==
[~2024-08-15] VITALS: Ht 182.9 cm; Wt 155.2 kg
[~2024-08-15] MED LIST changes: +JARD1TAB3 PO
[2024-08-15 13:48] VITALS: BP 143/89; O2SAT 96
== END ==
LOC: M PAL 13:38
PROVIDERS: ATTEND Family Medicine
DX: Z51.5 Encounter for palliative care (principal); G89.29 Other chronic pain; C61 Malignant neoplasm of prostate; C79.51 Secondary malignant neoplasm of bone; L59.8 Other specified disorders of the skin and subcutaneous tissue related to radiation; Z66 Do not resuscitate; Z79.85 Long-term (current) use of injectable non-insulin antidiabetic drugs; Z79.891 Long term (current) use of opiate analgesic; Z79.82 Long term (current) use of aspirin; Z79.84 Long term (current) use of oral hypoglycemic drugs; Z79.899 Other long term (current) drug therapy; Z88.8 Allergy status to other drugs, medicaments and biological substances; R29.6 Repeated falls; Z92.3 Personal history of irradiation

== ENCOUNTER → 2024-10-02 | Outpatient (CLI) | payer MEDICARE, MEDICAID | LOC: M ONCR 08:55 | PROVIDERS: ATTEND General Practice | DX: C79.51 Secondary malignant neoplasm of bone (principal); C61 Malignant neoplasm of prostate; G89.29 Other chronic pain; M25.552 Pain in left hip; F17.218 Nicotine dependence, cigarettes, with other nicotine-induced disorders; Z79.52 Long term (current) use of systemic steroids; Z79.82 Long term (current) use of aspirin; Z79.84 Long term (current) use of oral hypoglycemic drugs; Z79.85 Long-term (current) use of injectable non-insulin antidiabetic drugs; Z79.818 Long term (current) use of other agents affecting estrogen receptors and estrogen levels; Z79.899 Other long term (current) drug therapy; Z88.8 Allergy status to other drugs, medicaments and biological substances; Z92.3 Personal history of irradiation ==

== ENCOUNTER → 2024-11-20 | Outpatient (CLI) | payer OTHER ==
[~2024-11-20] VITALS: Ht 182.9 cm; Wt 152.1 kg
[~2024-11-20] MED LIST changes: +DULO30CA9 PO; +OXYC10TA12 PO; +SEMA2PEN SQ
[2024-11-20 13:07] VITALS: BP 158/82; O2SAT 95
== END ==
LOC: M PAL 12:41
PROVIDERS: ATTEND Physician Assistant
DX: Z51.5 Encounter for palliative care (principal); Z66 Do not resuscitate; C61 Malignant neoplasm of prostate; C79.51 Secondary malignant neoplasm of bone; Z79.891 Long term (current) use of opiate analgesic; Z79.82 Long term (current) use of aspirin; Z79.899 Other long term (current) drug therapy; Z88.8 Allergy status to other drugs, medicaments and biological substances

== ENCOUNTER → 2024-12-18 | Outpatient (CLI) | payer OTHER ==
[~2024-12-18] VITALS: Ht 182.9 cm; Wt 148.7 kg
[~2024-12-18] MED LIST changes: +SENN-186 PO
[2024-12-18 09:05] VITALS: BP 134/79; O2SAT 100
== END ==
LOC: M PAL 08:42
PROVIDERS: ATTEND Physician Assistant
DX: Z51.5 Encounter for palliative care (principal); C61 Malignant neoplasm of prostate; C79.51 Secondary malignant neoplasm of bone; Z66 Do not resuscitate; R52 Pain, unspecified; G62.9 Polyneuropathy, unspecified; K59.00 Constipation, unspecified; Z79.82 Long term (current) use of aspirin; Z79.891 Long term (current) use of opiate analgesic; Z79.52 Long term (current) use of systemic steroids; Z79.85 Long-term (current) use of injectable non-insulin antidiabetic drugs; Z79.899 Other long term (current) drug therapy; Z88.8 Allergy status to other drugs, medicaments and biological substances

== ENCOUNTER → 2025-04-24 | Outpatient (CLI) | payer MEDICARE, MEDICAID ==
[~2025-04-24] MED LIST changes: +AMLO-751 PO; -AMLO10TA PO; -PREG50CA PO; +PREG50CA87 PO
== END ==
LOC: M WHC 10:52
PROVIDERS: ATTEND Family Medicine
DX: R10.32 Left lower quadrant pain (principal); Z53.9 Procedure and treatment not carried out, unspecified reason

== ENCOUNTER → 2025-05-01 | Outpatient (CLI) | payer OTHER ==
[~2025-05-01] VITALS: Ht 182.9 cm; Wt 142.2 kg
[2025-05-01 14:30] VITALS: BP 160/90; O2SAT 96
== END ==
LOC: M PAL 14:14
PROVIDERS: ATTEND Physician Assistant
DX: Z51.5 Encounter for palliative care (principal); Z66 Do not resuscitate; C61 Malignant neoplasm of prostate; C79.51 Secondary malignant neoplasm of bone; Z79.891 Long term (current) use of opiate analgesic; Z88.6 Allergy status to analgesic agent; Z79.899 Other long term (current) drug therapy; Z79.82 Long term (current) use of aspirin

== ENCOUNTER → 2025-05-24 | Outpatient (CLI) | payer MEDICARE, OTHER | LOC: M RAD 13:06 | DX: R10.32 Left lower quadrant pain (principal) ==

== ENCOUNTER → 2025-05-29 | Outpatient (CLI) | payer MEDICARE, OTHER ==
[~2025-05-29] MED LIST changes: +PRED50TA57 PO
== END ==
LOC: M ONCR 13:30
PROVIDERS: ATTEND General Practice
DX: R93.5 Abnormal findings on diagnostic imaging of other abdominal regions, including retroperitoneum (principal)

== ENCOUNTER → 2025-06-17 | Outpatient (CLI) | payer MEDICARE, OTHER | LOC: M RAD 08:30 | PROVIDERS: ATTEND General Practice | DX: C79.51 Secondary malignant neoplasm of bone (principal) ==

== ENCOUNTER 2025-06-21 04:34 | Emergency (ER) | payer MEDICARE, OTHER ==
[~2025-06-21] VITALS: Ht 182.9 cm; Wt 139.9 kg
[2025-06-21] MEDS: NS (Normal Saline) 0.9% 1,000 ML IV ONE (07:36)
[2025-06-21] MEDS: KETOROLAC 30 MG/ML 1 ML VIAL IV ONE (07:37)
[2025-06-21 07:39] LABS: BASO # 0.1 10^3/uL (0.0-0.2); BASO % 0.5 % (0.0-1.0); EOS # 0.1 10^3/uL (0.0-0.5); EOS % 1.1 % (0.0-3.0); LYMPH # 0.6 10^3/uL (1.5-5.0); LYMPH % 5.8 % (24.0-44.0); MONO # 0.7 10^3/uL (0.0-0.8); MONO % 6.8 % (2.0-8.0); NEUTROPHILS # 9.2 10^3/uL (1.5-8.5); NEUTROPHILS % 85.1 % (36.0-66.0); PLATELET COUNT, AUTOMATED 242 10^3/uL (150-450)
[2025-06-21] MEDS ORDERED: AMOX875T2 PO (08:43)
[2025-06-21] MEDS: AUGMENTIN 875 MG TAB PO ONE (08:52)
[2025-06-21 08:58] VITALS: BP 142/75; TEMP 98.3; O2SAT 97
== END 2025-06-21 08:59 | disposition home or self-care (01) ==
LOC: M ED 04:34
DX: H92.01 Otalgia, right ear (principal); J01.00 Acute maxillary sinusitis, unspecified; C61 Malignant neoplasm of prostate; H74.8X1 Other specified disorders of right middle ear and mastoid; M26.643 Arthritis of bilateral temporomandibular joint; M50.30 Other cervical disc degeneration, unspecified cervical region; F10.10 Alcohol abuse, uncomplicated; I25.2 Old myocardial infarction; F17.200 Nicotine dependence, unspecified, uncomplicated; Z88.8 Allergy status to other drugs, medicaments and biological substances; Z86.79 Personal history of other diseases of the circulatory system; Z79.2 Long term (current) use of antibiotics; Z79.52 Long term (current) use of systemic steroids; Z79.899 Other long term (current) drug therapy; Z79.82 Long term (current) use of aspirin
CPT/HCPCS: 70491; 80047; 85025; 85652; 86140; 96374; 99284; J1885

== ENCOUNTER → 2025-06-25 | Outpatient (CLI) | payer MEDICARE, OTHER ==
[~2025-06-25] MED LIST changes: +AMOX875T2 PO
== END ==
LOC: M ONCR 12:45
PROVIDERS: ATTEND General Practice
DX: H70.92 Unspecified mastoiditis, left ear (principal)

== ENCOUNTER → 2025-07-01 | Outpatient (CLI) | payer MEDICARE, OTHER ==
[~2025-07-01] VITALS: Ht 182.9 cm; Wt 142.0 kg
[~2025-07-01] MED LIST changes: +FLON1SPR NARES; +MORP-69 PO; +OXYC20TA40 PO
[2025-07-01 14:00] VITALS: BP 142/88; O2SAT 98
== END ==
LOC: M PAL 13:41
PROVIDERS: ATTEND Physician Assistant
DX: Z51.5 Encounter for palliative care (principal); C61 Malignant neoplasm of prostate; C79.51 Secondary malignant neoplasm of bone; R52 Pain, unspecified; G47.9 Sleep disorder, unspecified; G62.9 Polyneuropathy, unspecified; K59.00 Constipation, unspecified; Z66 Do not resuscitate; Z79.52 Long term (current) use of systemic steroids; Z79.818 Long term (current) use of other agents affecting estrogen receptors and estrogen levels; Z79.82 Long term (current) use of aspirin; Z79.84 Long term (current) use of oral hypoglycemic drugs; Z79.891 Long term (current) use of opiate analgesic; Z79.899 Other long term (current) drug therapy; Z88.8 Allergy status to other drugs, medicaments and biological substances

== ENCOUNTER → 2025-07-17 | Outpatient (CLI) | payer MEDICARE, OTHER ==
[~2025-07-17] VITALS: Ht 182.9 cm; Wt 139.0 kg
[2025-07-17 13:35] VITALS: BP 136/78; O2SAT 96
== END ==
LOC: M PAL 13:25
PROVIDERS: ATTEND Physician Assistant
DX: Z51.5 Encounter for palliative care (principal); Z66 Do not resuscitate; C61 Malignant neoplasm of prostate; C79.51 Secondary malignant neoplasm of bone; Z79.891 Long term (current) use of opiate analgesic; Z88.6 Allergy status to analgesic agent; Z79.82 Long term (current) use of aspirin; Z79.899 Other long term (current) drug therapy; Z79.02 Long term (current) use of antithrombotics/antiplatelets

== ENCOUNTER → 2025-07-24 | Outpatient (CLI) | payer MEDICARE, MEDICAID ==
[~2025-07-24] MED LIST changes: +TIRZ5PEN SQ
[2025-07-24 15:35] LABS: CHOLESTEROL LEVEL 99.0 MG/DL (<200); CHOLESTEROL RISK RATIO 2.17 (<5); LDL CHOLESTEROL 29.7 MG/DL (<100); NON-HDL-C 53.5 MG/DL; TRIGLYCERIDES LEVEL 119.0 MG/DL (<150)
[2025-07-24 15:57] LABS: ESTIMATED AVERAGE GLUCOSE 111.0 MG/DL (60-110)
== END ==
LOC: M PLALAB 12:13
DX: E11.9 Type 2 diabetes mellitus without complications (principal)

== ENCOUNTER → 2025-08-20 | Outpatient (CLI) | payer MEDICARE, OTHER | LOC: M ONCR 07:51 | PROVIDERS: ATTEND General Practice | DX: C79.51 Secondary malignant neoplasm of bone (principal); C61 Malignant neoplasm of prostate; E66.9 Obesity, unspecified; F17.210 Nicotine dependence, cigarettes, uncomplicated; Z92.3 Personal history of irradiation; Z88.8 Allergy status to other drugs, medicaments and biological substances; Z79.85 Long-term (current) use of injectable non-insulin antidiabetic drugs; Z79.899 Other long term (current) drug therapy; Z79.52 Long term (current) use of systemic steroids; Z79.891 Long term (current) use of opiate analgesic; Z79.84 Long term (current) use of oral hypoglycemic drugs; Z79.82 Long term (current) use of aspirin ==